=== PATIENT | female | born 1960 | race Caucasian/White ===

== ENCOUNTER 2017-02-10 02:28 | Emergency (ER) | payer MEDICARE, MEDICAID ==
[~2017-02-10] VITALS: Ht 167.6 cm; Wt 98.0 kg
[~2017-02-10 02:28] MED LIST: ALBU18HF2 INH; ASPI81TA52 PO; DIPH25CA83 PO; FLUT1AER INH; LEVO750T21 PO; NITR0.4T SL; NORCO10T PO; PANT20TA3 PO; PRED10TA23 PO; SPIIN IH
[2017-02-10] MEDS ORDERED: methylPREDNISolone sod succ 125mg/2ml vial IM ONE (02:55)
[2017-02-10] MEDS ORDERED: ipratropium/albuterol 3ml nebule NEB ONE (02:55)
[2017-02-10] MEDS ORDERED: fluconazole 100mg tablet PO ONE (02:55)
[2017-02-10] MEDS ORDERED: FLUC150T PO (03:53)
[2017-02-10 04:14] VITALS: BP 144/73
[2017-02-13] MEDS ORDERED: CLIN150C2 PO (11:20)
== END 2017-02-10 04:18 | disposition home or self-care (01) ==
LOC: ER 02:29
DX: J44.1 Chronic obstructive pulmonary disease with (acute) exacerbation (principal); B37.3 Candidiasis of vulva and vagina; E78.00 Pure hypercholesterolemia, unspecified; I10 Essential (primary) hypertension; K21.9 Gastro-esophageal reflux disease without esophagitis; G89.29 Other chronic pain; Z88.0 Allergy status to penicillin; Z88.5 Allergy status to narcotic agent; Z88.2 Allergy status to sulfonamides; Z99.81 Dependence on supplemental oxygen; Z79.82 Long term (current) use of aspirin
CPT/HCPCS: 71020; 93005; 94640; 94760; 96372; 99284; J2930

== ENCOUNTER 2017-03-07 12:28 | Emergency (ER) | payer MEDICARE, MEDICAID ==
[~2017-03-07] VITALS: Ht 167.6 cm; Wt 100.0 kg
[~2017-03-07 12:28] MED LIST changes: -LEVO750T21 PO
[2017-03-07] MEDS ORDERED: LISI-604 PO (12:48)
[2017-03-07] MEDS ORDERED: PRED5TAB PO (12:48)
[2017-03-07] MEDS ORDERED: methylPREDNISolone sod succ 125mg/2ml vial IV ONE (14:25)
[2017-03-07 14:36] VITALS: BP 117/60
== END 2017-03-07 14:37 | disposition home or self-care (01) ==
LOC: ER 12:29
DX: J44.1 Chronic obstructive pulmonary disease with (acute) exacerbation (principal); E78.00 Pure hypercholesterolemia, unspecified; I10 Essential (primary) hypertension; K21.9 Gastro-esophageal reflux disease without esophagitis; G89.29 Other chronic pain; M81.0 Age-related osteoporosis without current pathological fracture; Z88.2 Allergy status to sulfonamides; Z88.0 Allergy status to penicillin; Z88.5 Allergy status to narcotic agent; Z99.81 Dependence on supplemental oxygen; Z79.01 Long term (current) use of anticoagulants; Z56.0 Unemployment, unspecified; Z98.890 Other specified postprocedural states
CPT/HCPCS: 71045; 93005; 99284

== ENCOUNTER 2017-03-20 07:29 | Emergency (ER) | payer MEDICARE, MEDICAID ==
[~2017-03-20] VITALS: Ht 167.6 cm; Wt 98.5 kg
[~2017-03-20 07:29] MED LIST changes: -DIPH25CA83 PO; +LISI-604 PO; -PRED10TA23 PO; +PRED5TAB PO
[2017-03-20] MEDS ORDERED: dexamethasone 4mg tablet PO ONE (07:35)
[2017-03-20] MEDS ORDERED: ipratropium/albuterol 3ml nebule NEB ONE (07:35)
[2017-03-20 08:26] LABS: BASOPHILS % (AUTO) 0.2 % (0-1); EOSINOPHILS # (AUTO) 0.4 X10'3 (0-0.9); EOSINOPHILS % (AUTO) 2.6 % (0-6); HEMATOCRIT 36.9 % (35.0-45.0); HEMOGLOBIN 12.7 g/dl (12.0-16.0); LYMPHOCYTES # (AUTO) 2.3 X10'3 (1.1-4.8); LYMPHOCYTES % (AUTO) 13.7 % (21-51); MEAN CORPUSCULAR HEMOGLOBIN 27.4 PG (27.0-31.0); MEAN CORPUSCULAR HGB CONC 34.3 % (33.0-36.5); MEAN CORPUSCULAR VOLUME 79.8 FL (78-98); MEAN PLATELET VOLUME 8.7 FL (7.4-10.4); MONOCYTES # (AUTO) 0.8 X10'3 (0-0.9); MONOCYTES % (AUTO) 4.8 % (2-12); NEUTROPHILS # (AUTO) 13.2 X10'3 (1.8-7.7); NEUTROPHILS % (AUTO) 78.7 % (42-75); PLATELET COUNT 206 X10'3 (140-440); RED BLOOD COUNT 4.63 X10'6 (4.20-5.60); RED CELL DISTRIBUTION WIDTH 16.4 % (11.5-14.5); WHITE BLOOD COUNT 16.8 X10'3 (4.5-11.0)
[2017-03-20] MEDS ORDERED: DOXY100C43 PO (08:28)
[2017-03-20 08:54] LABS: ALANINE AMINOTRANSFERASE 21 U/L (12-78); ALBUMIN 3.5 G/DL (3.4-5.0); ALBUMIN/GLOBULIN RATIO 1.1 (1.1-1.5); ALKALINE PHOSPHATASE 77 IU/L (46-116); ANION GAP 10 (8-16); ASPARTATE AMINO TRANSFERASE 13 U/L (10-37); BILIRUBIN,TOTAL 0.4 MG/DL (0.1-1.0); BLOOD UREA NITROGEN 13 MG/DL (7-18); BUN/CREATININE RATIO 16.3 (6.6-38.0); CALCIUM 8.6 MG/DL (8.5-10.1); CHLORIDE 107 MMOL/L (99-107); GLUCOSE 116 MG/DL (70-104); POTASSIUM 3.7 MMOL/L (3.5-5.1); SODIUM 141 MMOL/L (135-145); TOTAL CARBON DIOXIDE 23.6 MMOL/L (24-32); TOTAL PROTEIN 6.7 G/DL (6.4-8.2); eGFR 73 ML/MIN
[2017-03-20 09:32] VITALS: BP 108/55
[2017-03-20] MEDS ORDERED: AZIT-57 PO (14:40)
== END 2017-03-20 09:33 | disposition home or self-care (01) ==
LOC: ER 07:30
DX: J44.1 Chronic obstructive pulmonary disease with (acute) exacerbation (principal); J20.9 Acute bronchitis, unspecified; K21.9 Gastro-esophageal reflux disease without esophagitis; I10 Essential (primary) hypertension; E78.00 Pure hypercholesterolemia, unspecified; M81.0 Age-related osteoporosis without current pathological fracture; Z87.891 Personal history of nicotine dependence; Z88.2 Allergy status to sulfonamides; Z88.6 Allergy status to analgesic agent; Z91.041 Radiographic dye allergy status; Z79.82 Long term (current) use of aspirin
CPT/HCPCS: 36415; 71045; 80053; 83880; 84484; 85025; 93005; 94640; 94760; 99285

== ENCOUNTER 2017-03-23 10:31 | Emergency (ER) | payer MEDICARE, MEDICAID ==
[~2017-03-23] VITALS: Ht 167.6 cm; Wt 95.6 kg
[~2017-03-23 10:31] MED LIST changes: +AZIT-57 PO
[2017-03-23] MEDS ORDERED: ipratropium/albuterol 3ml nebule NEB ONE (10:55)
[2017-03-23] MEDS ORDERED: IPRA3AMP9 IH (11:25)
[2017-03-23 12:05] VITALS: BP 130/89
== END 2017-03-23 12:08 | disposition home or self-care (01) ==
LOC: ER 10:31
DX: J44.1 Chronic obstructive pulmonary disease with (acute) exacerbation (principal); I49.9 Cardiac arrhythmia, unspecified; E78.00 Pure hypercholesterolemia, unspecified; I10 Essential (primary) hypertension; K21.9 Gastro-esophageal reflux disease without esophagitis; G89.29 Other chronic pain; M81.0 Age-related osteoporosis without current pathological fracture; Z56.0 Unemployment, unspecified; Z88.1 Allergy status to other antibiotic agents; Z88.0 Allergy status to penicillin; Z88.2 Allergy status to sulfonamides; Z88.5 Allergy status to narcotic agent; Z88.8 Allergy status to other drugs, medicaments and biological substances; Z79.899 Other long term (current) drug therapy; Z79.82 Long term (current) use of aspirin
CPT/HCPCS: 71046; 93005; 94640; 94760; 99284

== ENCOUNTER 2017-04-21 00:21 | Emergency (ER) | payer MEDICARE, MEDICAID ==
[~2017-04-21] VITALS: Ht 5451.6 cm; Wt 98.0 kg
[~2017-04-21 00:21] MED LIST changes: -AZIT-57 PO; +IPRA3AMP9 IH
[2017-04-21 01:15] LABS: BASOPHILS # (AUTO) 0.1 X10'3 (0-0.2); BASOPHILS % (AUTO) 0.7 % (0-1); EOSINOPHILS % (AUTO) 0.5 % (0-6); HEMATOCRIT 36.3 % (35.0-45.0); HEMOGLOBIN 12.3 g/dl (12.0-16.0); LYMPHOCYTES # (AUTO) 2.8 X10'3 (1.1-4.8); LYMPHOCYTES % (AUTO) 31.2 % (21-51); MEAN CORPUSCULAR HEMOGLOBIN 27.4 PG (27.0-31.0); MEAN CORPUSCULAR HGB CONC 33.8 % (33.0-36.5); MEAN CORPUSCULAR VOLUME 80.8 FL (78-98); MEAN PLATELET VOLUME 9.1 FL (7.4-10.4); MONOCYTES # (AUTO) 0.9 X10'3 (0-0.9); MONOCYTES % (AUTO) 10.2 % (2-12); NEUTROPHILS # (AUTO) 5.3 X10'3 (1.8-7.7); NEUTROPHILS % (AUTO) 57.4 % (42-75); PLATELET COUNT 254 X10'3 (140-440); RED BLOOD COUNT 4.49 X10'6 (4.20-5.60); RED CELL DISTRIBUTION WIDTH 15.2 % (11.5-14.5); WHITE BLOOD COUNT 9.1 X10'3 (4.5-11.0)
[2017-04-21 01:28] LABS: PARTIAL THROMBOPLASTIN TIME 27 SECONDS (22-32); PROTHROMBIN TIME 10.2 SECONDS (9.0-12.0)
[2017-04-21 01:39] LABS: ALANINE AMINOTRANSFERASE 25 U/L (12-78); ALBUMIN 3.5 G/DL (3.4-5.0); ALKALINE PHOSPHATASE 84 IU/L (46-116); ANION GAP 13 (8-16); ASPARTATE AMINO TRANSFERASE 15 U/L (10-37); BILIRUBIN,TOTAL 0.2 MG/DL (0.1-1.0); BLOOD UREA NITROGEN 17 MG/DL (7-18); BUN/CREATININE RATIO 22.7 (6.6-38.0); CALCIUM 8.6 MG/DL (8.5-10.1); CHLORIDE 107 MMOL/L (99-107); CREATININE 0.75 MG/DL (0.40-0.90); GLUCOSE 106 MG/DL (70-104); POTASSIUM 3.8 MMOL/L (3.5-5.1); SODIUM 144 MMOL/L (135-145); TOTAL CARBON DIOXIDE 24.5 MMOL/L (24-32); TOTAL PROTEIN 7.1 G/DL (6.4-8.2); eGFR 79 ML/MIN
[2017-04-21] MEDS ORDERED: levoFLOXACIN 250mg tablet PO ONE (02:00)
[2017-04-21] MEDS ORDERED: LEVO500T2 PO (02:01)
[2017-04-21 02:26] VITALS: BP 143/84
== END 2017-04-21 02:28 | disposition home or self-care (01) ==
LOC: ER 00:22
DX: J44.1 Chronic obstructive pulmonary disease with (acute) exacerbation (principal); E78.00 Pure hypercholesterolemia, unspecified; I10 Essential (primary) hypertension; K21.9 Gastro-esophageal reflux disease without esophagitis; G89.29 Other chronic pain; M81.0 Age-related osteoporosis without current pathological fracture; Z87.01 Personal history of pneumonia (recurrent); Z98.890 Other specified postprocedural states; Z88.0 Allergy status to penicillin; Z88.5 Allergy status to narcotic agent; Z88.2 Allergy status to sulfonamides; Z88.3 Allergy status to other anti-infective agents; Z79.82 Long term (current) use of aspirin; Z79.899 Other long term (current) drug therapy; Z99.81 Dependence on supplemental oxygen
CPT/HCPCS: 36415; 71045; 80053; 83880; 84484; 85025; 85610; 85730; 87040; 93005; 99285

== ENCOUNTER 2017-05-15 22:27 | Emergency (ER) | payer MEDICARE, MEDICAID ==
[~2017-05-15] VITALS: Ht 167.6 cm; Wt 98.3 kg
[2017-05-15 22:29] VITALS: BP 154/66
[2017-05-15] MEDS ORDERED: predniSONE 20 mg tablet PO ONE (22:50)
[2017-05-15 23:45] LABS: BASOPHILS # (AUTO) 0.1 X10'3 (0-0.2); BASOPHILS % (AUTO) 0.7 % (0-1); EOSINOPHILS # (AUTO) 0.4 X10'3 (0-0.9); EOSINOPHILS % (AUTO) 3.3 % (0-6); HEMATOCRIT 38.6 % (35.0-45.0); HEMOGLOBIN 13.1 g/dl (12.0-16.0); LYMPHOCYTES # (AUTO) 4.9 X10'3 (1.1-4.8); LYMPHOCYTES % (AUTO) 39.1 % (21-51); MEAN CORPUSCULAR HGB CONC 33.8 % (33.0-36.5); MEAN CORPUSCULAR VOLUME 79.9 FL (78-98); MEAN PLATELET VOLUME 8.6 FL (7.4-10.4); MONOCYTES # (AUTO) 0.8 X10'3 (0-0.9); MONOCYTES % (AUTO) 6.4 % (2-12); NEUTROPHILS # (AUTO) 6.4 X10'3 (1.8-7.7); NEUTROPHILS % (AUTO) 50.5 % (42-75); PLATELET COUNT 254 X10'3 (140-440); RED BLOOD COUNT 4.83 X10'6 (4.20-5.60); RED CELL DISTRIBUTION WIDTH 16.1 % (11.5-14.5); WHITE BLOOD COUNT 12.6 X10'3 (4.5-11.0)
[2017-05-15] MEDS ORDERED: PRED20TA PO (23:55)
[2017-05-16 00:09] LABS: ALANINE AMINOTRANSFERASE 26 U/L (12-78); ALBUMIN 3.6 G/DL (3.4-5.0); ALBUMIN/GLOBULIN RATIO 1.1 (1.1-1.5); ALKALINE PHOSPHATASE 81 IU/L (46-116); ANION GAP 10 (8-16); ASPARTATE AMINO TRANSFERASE 13 U/L (10-37); BILIRUBIN,TOTAL 0.2 MG/DL (0.1-1.0); BLOOD UREA NITROGEN 12 MG/DL (7-18); BUN/CREATININE RATIO 12.9 (6.6-38.0); CALCIUM 8.6 MG/DL (8.5-10.1); CHLORIDE 105 MMOL/L (99-107); CREATININE 0.93 MG/DL (0.40-0.90); GLUCOSE 107 MG/DL (70-104); POTASSIUM 3.5 MMOL/L (3.5-5.1); SODIUM 140 MMOL/L (135-145); TOTAL CARBON DIOXIDE 24.7 MMOL/L (24-32); TOTAL PROTEIN 6.8 G/DL (6.4-8.2); eGFR 62 ML/MIN
== END 2017-05-16 00:36 | disposition home or self-care (01) ==
LOC: ER 22:28
DX: J44.9 Chronic obstructive pulmonary disease, unspecified (principal); E78.00 Pure hypercholesterolemia, unspecified; I10 Essential (primary) hypertension; K21.9 Gastro-esophageal reflux disease without esophagitis; G89.29 Other chronic pain; Z56.0 Unemployment, unspecified; Z88.0 Allergy status to penicillin; Z79.899 Other long term (current) drug therapy
CPT/HCPCS: 36415; 71046; 80053; 83735; 83880; 84484; 85025; 93005; 99285; J7512

== ENCOUNTER 2017-05-23 04:13 | Emergency (ER) | payer MEDICARE, MEDICAID ==
[~2017-05-23] VITALS: Ht 167.6 cm; Wt 88.3 kg
[2017-05-23 04:27] VITALS: BP 134/68
[2017-05-23] MEDS ORDERED: methylPREDNISolone sod succ 125mg/2ml vial IV ONE (04:35)
[2017-05-23] MEDS ORDERED: ipratropium/albuterol 3ml nebule NEB ONE (04:35)
[2017-05-23] MEDS ORDERED: AZIT250T PO (04:47)
[2017-05-23] MEDS ORDERED: PRED10TA23 PO (04:47)
[2017-05-23] MEDS ORDERED: LEVO750T21 PO (05:05)
== END 2017-05-23 05:12 | disposition home or self-care (01) ==
LOC: ER 04:13
DX: J44.1 Chronic obstructive pulmonary disease with (acute) exacerbation (principal); E78.00 Pure hypercholesterolemia, unspecified; I10 Essential (primary) hypertension; G89.29 Other chronic pain; K21.9 Gastro-esophageal reflux disease without esophagitis; Z88.2 Allergy status to sulfonamides; Z88.0 Allergy status to penicillin; Z88.5 Allergy status to narcotic agent; Z79.82 Long term (current) use of aspirin; Z79.899 Other long term (current) drug therapy
CPT/HCPCS: 71045; 94640; 94760; 96374; 99284; J2930

== ENCOUNTER 2017-07-26 08:45 | Emergency (ER) | payer MEDICARE, MEDICAID ==
[~2017-07-26] VITALS: Ht 165.1 cm; Wt 97.7 kg
[~2017-07-26 08:45] MED LIST changes: +PSEU120T55 PO
[2017-07-26 09:22] LABS: BASOPHILS # (AUTO) 0.1 X10'3 (0-0.2); BASOPHILS % (AUTO) 0.8 % (0-1); EOSINOPHILS % (AUTO) 0.2 % (0-6); HEMATOCRIT 36.4 % (35.0-45.0); HEMOGLOBIN 12.4 g/dl (12.0-16.0); LYMPHOCYTES # (AUTO) 3.5 X10'3 (1.1-4.8); LYMPHOCYTES % (AUTO) 28.4 % (21-51); MEAN CORPUSCULAR HEMOGLOBIN 27.1 PG (27.0-31.0); MEAN CORPUSCULAR HGB CONC 34.2 % (33.0-36.5); MEAN CORPUSCULAR VOLUME 79.4 FL (78-98); MEAN PLATELET VOLUME 8.7 FL (7.4-10.4); MONOCYTES # (AUTO) 0.7 X10'3 (0-0.9); MONOCYTES % (AUTO) 5.5 % (2-12); NEUTROPHILS # (AUTO) 8.1 X10'3 (1.8-7.7); NEUTROPHILS % (AUTO) 65.1 % (42-75); PLATELET COUNT 262 X10'3 (140-440); RED BLOOD COUNT 4.59 X10'6 (4.20-5.60); RED CELL DISTRIBUTION WIDTH 15.9 % (11.5-14.5); WHITE BLOOD COUNT 12.4 X10'3 (4.5-11.0)
[2017-07-26] MEDS ORDERED: methylPREDNISolone sod succ 125mg/2ml vial IM ONE (09:25)
[2017-07-26] MEDS ORDERED: ipratropium/albuterol 3ml nebule NEB ONE (09:25)
[2017-07-26 09:36] LABS: ALANINE AMINOTRANSFERASE 19 U/L (12-78); ALBUMIN 3.5 G/DL (3.4-5.0); ALBUMIN/GLOBULIN RATIO 1.1 (1.1-1.5); ALKALINE PHOSPHATASE 87 IU/L (46-116); ANION GAP 9 (8-16); ASPARTATE AMINO TRANSFERASE 12 U/L (10-37); BILIRUBIN,TOTAL 0.2 MG/DL (0.1-1.0); BLOOD UREA NITROGEN 14 MG/DL (7-18); BUN/CREATININE RATIO 16.9 (6.6-38.0); CALCIUM 8.2 MG/DL (8.5-10.1); CHLORIDE 106 MMOL/L (99-107); CREATININE 0.83 MG/DL (0.40-0.90); GLUCOSE 94 MG/DL (70-104); POTASSIUM 3.3 MMOL/L (3.5-5.1); SODIUM 142 MMOL/L (135-145); TOTAL CARBON DIOXIDE 26.6 MMOL/L (24-32); TOTAL PROTEIN 6.8 G/DL (6.4-8.2); eGFR 70 ML/MIN
[2017-07-26] MEDS ORDERED: pantoprazole 40 MG vial IV ONE (10:20)
[2017-07-26 10:30] VITALS: BP 142/69
[2017-07-30] MEDS ORDERED: PRED50TA PO (21:25)
[2017-07-30] MEDS ORDERED: LEVO750T21 PO (21:25)
== END 2017-07-26 10:32 | disposition home or self-care (01) ==
LOC: ER 08:45
DX: J44.1 Chronic obstructive pulmonary disease with (acute) exacerbation (principal); E78.00 Pure hypercholesterolemia, unspecified; I10 Essential (primary) hypertension; K21.9 Gastro-esophageal reflux disease without esophagitis; G89.29 Other chronic pain; M81.0 Age-related osteoporosis without current pathological fracture; Z56.0 Unemployment, unspecified; Z88.0 Allergy status to penicillin; Z88.5 Allergy status to narcotic agent; Z88.2 Allergy status to sulfonamides; Z79.82 Long term (current) use of aspirin; Z79.899 Other long term (current) drug therapy
CPT/HCPCS: 36415; 71046; 80053; 85025; 93005; 94640; 94760; 96372; 99285; J2930

== ENCOUNTER 2017-09-03 06:27 | Emergency (ER) | payer MEDICARE, MEDICAID ==
[~2017-09-03] VITALS: Ht 167.6 cm; Wt 99.5 kg
[~2017-09-03 06:27] MED LIST changes: +PRED50TA PO
[2017-09-03 06:58] LABS: BASOPHILS % (AUTO) 0.3 % (0-1); EOSINOPHILS # (AUTO) 0.1 X10'3 (0-0.9); EOSINOPHILS % (AUTO) 0.4 % (0-6); HEMATOCRIT 37.4 % (35.0-45.0); HEMOGLOBIN 12.7 g/dl (12.0-16.0); LYMPHOCYTES # (AUTO) 4.9 X10'3 (1.1-4.8); LYMPHOCYTES % (AUTO) 34.8 % (21-51); MEAN CORPUSCULAR HEMOGLOBIN 27.7 PG (27.0-31.0); MEAN CORPUSCULAR VOLUME 81.4 FL (78-98); MEAN PLATELET VOLUME 8.6 FL (7.4-10.4); MONOCYTES # (AUTO) 0.7 X10'3 (0-0.9); MONOCYTES % (AUTO) 5.2 % (2-12); NEUTROPHILS # (AUTO) 8.4 X10'3 (1.8-7.7); NEUTROPHILS % (AUTO) 59.3 % (42-75); PLATELET COUNT 267 X10'3 (140-440); RED BLOOD COUNT 4.59 X10'6 (4.20-5.60); RED CELL DISTRIBUTION WIDTH 16.2 % (11.5-14.5); WHITE BLOOD COUNT 14.2 X10'3 (4.5-11.0)
[2017-09-03 07:16] LABS: ALANINE AMINOTRANSFERASE 20 U/L (12-78); ALBUMIN 3.4 G/DL (3.4-5.0); ALKALINE PHOSPHATASE 82 IU/L (46-116); ANION GAP 6 (8-16); ASPARTATE AMINO TRANSFERASE 6 U/L (10-37); BILIRUBIN,TOTAL 0.2 MG/DL (0.1-1.0); BLOOD UREA NITROGEN 22 MG/DL (7-18); BUN/CREATININE RATIO 22.7 (6.6-38.0); CALCIUM 8.4 MG/DL (8.5-10.1); CHLORIDE 105 MMOL/L (99-107); CREATININE 0.97 MG/DL (0.40-0.90); GLUCOSE 94 MG/DL (70-104); POTASSIUM 3.4 MMOL/L (3.5-5.1); SODIUM 138 MMOL/L (135-145); TOTAL CARBON DIOXIDE 27.4 MMOL/L (24-32); TOTAL PROTEIN 6.7 G/DL (6.4-8.2); eGFR 59 ML/MIN
[2017-09-03 07:25] LABS: LIPASE 73 U/L (73-393)
[2017-09-03 09:34] VITALS: BP 127/70
== END 2017-09-03 09:40 | disposition home or self-care (01) ==
LOC: ER 06:28
DX: J44.9 Chronic obstructive pulmonary disease, unspecified (principal); R07.89 Other chest pain; E78.00 Pure hypercholesterolemia, unspecified; I10 Essential (primary) hypertension; K21.9 Gastro-esophageal reflux disease without esophagitis; M81.0 Age-related osteoporosis without current pathological fracture; F31.9 Bipolar disorder, unspecified; Z56.0 Unemployment, unspecified; Z88.0 Allergy status to penicillin; Z88.5 Allergy status to narcotic agent; Z88.2 Allergy status to sulfonamides; Z79.82 Long term (current) use of aspirin; Z79.899 Other long term (current) drug therapy
CPT/HCPCS: 36415; 71046; 80053; 83605; 83690; 84484; 85025; 87040; 93005; 99285

== ENCOUNTER 2017-09-08 19:04 | Emergency (ER) | payer MEDICARE, MEDICAID ==
[~2017-09-08] VITALS: Ht 167.6 cm; Wt 97.8 kg
[2017-09-08 19:47] LABS: CLARITY,URINE CLEAR (Clear); COLOR,URINE YELLOW (Yellow); GLUCOSE, URINE NEGATIVE (Neg); KETONES,URINE NEGATIVE (Neg); LEUKOCYTE ESTERASE ,URINE NEGATIVE (Neg); NITRITES, URINE NEGATIVE (Neg); OCCULT BLOOD,URINE TRACE-INTACT (Neg); PROTEIN,URINE NEGATIVE (Neg); UROBILINOGEN,URINE 0.2 E.U/dL (0.2-1.0)
[2017-09-08] MEDS ORDERED: albuterol 2.5 MG/3 ML nebule CONTNEB PRN (19:50)
[2017-09-08 19:57] LABS: UA COLLECTION TYPE CLN CATCH MIDSTREAM
[2017-09-08 20:00] LABS: BACTERIA,URINE NONE SEEN /HPF (Neg); SQUAMOUS EPITHELIAL CELL,UR FEW /LPF (FEW); WBC,URINE NONE SEEN /HPF (0-4)
[2017-09-08 20:01] LABS: BASOPHILS # (AUTO) 0.1 X10'3 (0-0.2); BASOPHILS % (AUTO) 0.5 % (0-1); EOSINOPHILS # (AUTO) 0.3 X10'3 (0-0.9); EOSINOPHILS % (AUTO) 1.9 % (0-6); HEMATOCRIT 38.9 % (35.0-45.0); HEMOGLOBIN 13.3 g/dl (12.0-16.0); LYMPHOCYTES % (AUTO) 17.4 % (21-51); MEAN CORPUSCULAR HEMOGLOBIN 27.7 PG (27.0-31.0); MEAN CORPUSCULAR HGB CONC 34.1 % (33.0-36.5); MEAN CORPUSCULAR VOLUME 81.2 FL (78-98); MEAN PLATELET VOLUME 8.6 FL (7.4-10.4); MONOCYTES # (AUTO) 1.2 X10'3 (0-0.9); MONOCYTES % (AUTO) 6.9 % (2-12); NEUTROPHILS # (AUTO) 12.5 X10'3 (1.8-7.7); NEUTROPHILS % (AUTO) 73.3 % (42-75); PLATELET COUNT 250 X10'3 (140-440); RED CELL DISTRIBUTION WIDTH 16.1 % (11.5-14.5)
[2017-09-08 20:10] LABS: PARTIAL THROMBOPLASTIN TIME 29 SECONDS (22-32); PROTHROMBIN TIME 10.6 SECONDS (9.0-12.0)
[2017-09-08 20:15] LABS: ALANINE AMINOTRANSFERASE 18 U/L (12-78); ALBUMIN 3.4 G/DL (3.4-5.0); ALBUMIN/GLOBULIN RATIO 0.9 (1.1-1.5); ALKALINE PHOSPHATASE 91 IU/L (46-116); ANION GAP 11 (8-16); ASPARTATE AMINO TRANSFERASE 11 U/L (10-37); BILIRUBIN,TOTAL 0.4 MG/DL (0.1-1.0); BLOOD UREA NITROGEN 18 MG/DL (7-18); BUN/CREATININE RATIO 17.8 (6.6-38.0); CALCIUM 8.6 MG/DL (8.5-10.1); CHLORIDE 102 MMOL/L (99-107); CREATININE 1.01 MG/DL (0.40-0.90); GLUCOSE 119 MG/DL (70-104); POTASSIUM 3.4 MMOL/L (3.5-5.1); SODIUM 136 MMOL/L (135-145); TOTAL CARBON DIOXIDE 23.4 MMOL/L (24-32); TOTAL PROTEIN 7.2 G/DL (6.4-8.2); eGFR 56 ML/MIN
[2017-09-08] MEDS ORDERED: methylPREDNISolone sod succ 125mg/2ml vial IV ONE (20:50)
[2017-09-08] MEDS ORDERED: PRED50TA PO (21:09)
[2017-09-08] MEDS ORDERED: AZIT-57 PO (21:09)
[2017-09-08 21:43] VITALS: BP 120/75
== END 2017-09-08 21:45 | disposition home or self-care (01) ==
LOC: ER 19:04
DX: J44.1 Chronic obstructive pulmonary disease with (acute) exacerbation (principal); I49.9 Cardiac arrhythmia, unspecified; I10 Essential (primary) hypertension; K21.9 Gastro-esophageal reflux disease without esophagitis; G89.29 Other chronic pain; M81.0 Age-related osteoporosis without current pathological fracture; Z98.890 Other specified postprocedural states; Z56.0 Unemployment, unspecified; Z88.0 Allergy status to penicillin; Z88.5 Allergy status to narcotic agent; Z88.2 Allergy status to sulfonamides; Z88.1 Allergy status to other antibiotic agents; Z79.82 Long term (current) use of aspirin; Z79.899 Other long term (current) drug therapy
CPT/HCPCS: 36415; 71045; 80053; 81001; 84145; 84484; 85025; 85610; 85730; 87040; 93005; 94644; 94760; 96374; 99285; J2930

== ENCOUNTER 2017-10-15 21:44 | Emergency (ER) | payer MEDICARE, MEDICAID ==
[~2017-10-15] VITALS: Ht 167.6 cm; Wt 97.7 kg
[2017-10-15] MEDS ORDERED: nitroGLYCERIN 1gm ointment UD TP ONE (22:55)
[2017-10-15 22:59] LABS: BASOPHILS # (AUTO) 0.2 X10'3 (0-0.2); BASOPHILS % (AUTO) 1.2 % (0-1); EOSINOPHILS # (AUTO) 0.2 X10'3 (0-0.9); EOSINOPHILS % (AUTO) 1.4 % (0-6); HEMOGLOBIN 12.5 g/dl (12.0-16.0); LYMPHOCYTES # (AUTO) 4.6 X10'3 (1.1-4.8); LYMPHOCYTES % (AUTO) 31.6 % (21-51); MEAN CORPUSCULAR HEMOGLOBIN 27.3 PG (27.0-31.0); MEAN CORPUSCULAR HGB CONC 33.8 % (33.0-36.5); MEAN CORPUSCULAR VOLUME 80.8 FL (78-98); MONOCYTES # (AUTO) 0.8 X10'3 (0-0.9); MONOCYTES % (AUTO) 5.2 % (2-12); NEUTROPHILS # (AUTO) 8.8 X10'3 (1.8-7.7); NEUTROPHILS % (AUTO) 60.6 % (42-75); PLATELET COUNT 277 X10'3 (140-440); RED BLOOD COUNT 4.57 X10'6 (4.20-5.60); RED CELL DISTRIBUTION WIDTH 16.6 % (11.5-14.5); WHITE BLOOD COUNT 14.5 X10'3 (4.5-11.0)
[2017-10-15 23:12] LABS: PARTIAL THROMBOPLASTIN TIME 25 SECONDS (22-32); PROTHROMBIN TIME 10.6 SECONDS (9.0-12.0)
[2017-10-15] MEDS: aspirin 81mg tab.chew PO ONE ×2 (23:14→23:21)
[2017-10-15 23:16] LABS: ALANINE AMINOTRANSFERASE 17 U/L (12-78); ALBUMIN 3.3 G/DL (3.4-5.0); ALBUMIN/GLOBULIN RATIO 1.1 (1.1-1.5); ALKALINE PHOSPHATASE 77 IU/L (46-116); ANION GAP 11 (8-16); ASPARTATE AMINO TRANSFERASE 11 U/L (10-37); BILIRUBIN,TOTAL 0.2 MG/DL (0.1-1.0); BLOOD UREA NITROGEN 19 MG/DL (7-18); BUN/CREATININE RATIO 21.3 (6.6-38.0); CHLORIDE 104 MMOL/L (99-107); CREATININE 0.89 MG/DL (0.40-0.90); GLUCOSE 87 MG/DL (70-104); POTASSIUM 3.6 MMOL/L (3.5-5.1); SODIUM 140 MMOL/L (135-145); TOTAL CARBON DIOXIDE 25.4 MMOL/L (24-32); TOTAL PROTEIN 6.3 G/DL (6.4-8.2); eGFR 65 ML/MIN
[2017-10-15 23:24] LABS: MAGNESIUM 1.8 MG/DL (1.5-2.4)
[2017-10-15 23:57] LABS: URINE AMPHETAMINE SCREEN NEGATIVE (Neg); URINE BARBITUATE SCREEN NEGATIVE (Neg); URINE BENZODIAZEPINES SCREEN NEGATIVE (Neg); URINE CANNABINOID SCREEN NEGATIVE (Neg); URINE COCAINE SCREEN NEGATIVE (Neg); URINE METHADONE SCREEN NEGATIVE (Neg); URINE OPIATE SCREEN NEGATIVE (Neg); URINE PHENCYCLIDINE SCREEN NEGATIVE (Neg)
[2017-10-16 02:22] VITALS: BP 120/43
== END 2017-10-16 02:25 | disposition home or self-care (01) ==
LOC: ER 21:45
DX: R07.89 Other chest pain (principal); E78.00 Pure hypercholesterolemia, unspecified; I10 Essential (primary) hypertension; J44.9 Chronic obstructive pulmonary disease, unspecified; K21.9 Gastro-esophageal reflux disease without esophagitis; G89.29 Other chronic pain; M81.0 Age-related osteoporosis without current pathological fracture; Z98.890 Other specified postprocedural states; Z56.0 Unemployment, unspecified; Z88.0 Allergy status to penicillin; Z88.5 Allergy status to narcotic agent; Z88.2 Allergy status to sulfonamides; Z88.3 Allergy status to other anti-infective agents; Z79.82 Long term (current) use of aspirin; Z79.899 Other long term (current) drug therapy; Z87.891 Personal history of nicotine dependence; Z99.81 Dependence on supplemental oxygen
CPT/HCPCS: 36415; 71045; 80053; 80305; 83735; 83880; 84484; 85025; 85610; 85730; 93005; 99285

== ENCOUNTER 2017-11-13 07:36 | Emergency (ER) | payer MEDICARE, MEDICAID ==
[~2017-11-13] VITALS: Ht 578.2 cm; Wt 88.0 kg
[2017-11-13 07:39] VITALS: BP 137/95
[2017-11-13] MEDS ORDERED: ipratropium/albuterol 3ml nebule NEB ONE (07:50)
[2017-11-13] MEDS ORDERED: dexamethasone 4mg tablet PO ONE (07:50)
[2017-11-13] MEDS ORDERED: predniSONE 20 mg tablet PO ONE (08:10)
[2017-11-13 08:57] LABS: BASOPHILS # (AUTO) 0.1 X10'3 (0-0.2); BASOPHILS % (AUTO) 0.6 % (0-1); EOSINOPHILS # (AUTO) 0.5 X10'3 (0-0.9); EOSINOPHILS % (AUTO) 4.5 % (0-6); HEMATOCRIT 40.2 % (35.0-45.0); HEMOGLOBIN 13.5 g/dl (12.0-16.0); LYMPHOCYTES % (AUTO) 19.9 % (21-51); MEAN CORPUSCULAR HEMOGLOBIN 27.5 PG (27.0-31.0); MEAN CORPUSCULAR HGB CONC 33.6 % (33.0-36.5); MEAN CORPUSCULAR VOLUME 81.8 FL (78-98); MEAN PLATELET VOLUME 8.7 FL (7.4-10.4); MONOCYTES # (AUTO) 0.6 X10'3 (0-0.9); MONOCYTES % (AUTO) 5.7 % (2-12); NEUTROPHILS # (AUTO) 6.9 X10'3 (1.8-7.7); NEUTROPHILS % (AUTO) 69.3 % (42-75); PLATELET COUNT 286 X10'3 (140-440); RED BLOOD COUNT 4.91 X10'6 (4.20-5.60); RED CELL DISTRIBUTION WIDTH 15.5 % (11.5-14.5)
[2017-11-13] MEDS ORDERED: AZIT250T PO (09:10)
[2017-11-13] MEDS ORDERED: LEVO750T21 PO (09:10)
[2017-11-13] MEDS ORDERED: PRED5TAB PO (09:10)
[2017-11-13 09:22] LABS: ALANINE AMINOTRANSFERASE 23 U/L (12-78); ALBUMIN 3.6 G/DL (3.4-5.0); ALKALINE PHOSPHATASE 89 IU/L (46-116); ANION GAP 13 (8-16); ASPARTATE AMINO TRANSFERASE 15 U/L (10-37); BILIRUBIN,TOTAL 0.3 MG/DL (0.1-1.0); BLOOD UREA NITROGEN 11 MG/DL (7-18); BUN/CREATININE RATIO 13.8 (6.6-38.0); CALCIUM 8.6 MG/DL (8.5-10.1); CHLORIDE 103 MMOL/L (99-107); GLUCOSE 117 MG/DL (70-104); SODIUM 141 MMOL/L (135-145); TOTAL CARBON DIOXIDE 25.3 MMOL/L (24-32); TOTAL PROTEIN 7.1 G/DL (6.4-8.2); eGFR 73 ML/MIN
== END 2017-11-13 09:37 | disposition home or self-care (01) ==
LOC: ER 07:37
DX: J20.9 Acute bronchitis, unspecified (principal); J44.1 Chronic obstructive pulmonary disease with (acute) exacerbation; I10 Essential (primary) hypertension; E78.00 Pure hypercholesterolemia, unspecified; K21.9 Gastro-esophageal reflux disease without esophagitis; G89.29 Other chronic pain; M54.9 Dorsalgia, unspecified; M81.0 Age-related osteoporosis without current pathological fracture; Z56.0 Unemployment, unspecified; Z88.0 Allergy status to penicillin; Z88.2 Allergy status to sulfonamides; Z88.8 Allergy status to other drugs, medicaments and biological substances; Z88.6 Allergy status to analgesic agent; Z88.1 Allergy status to other antibiotic agents; Z91.041 Radiographic dye allergy status; Z79.82 Long term (current) use of aspirin
CPT/HCPCS: 36415; 71046; 80053; 83605; 83880; 84484; 85025; 87040; 93005; 94640; 94760; 99285; J7512; J8540

== ENCOUNTER 2017-11-20 17:25 | Emergency (ER) | payer MEDICARE, MEDICAID ==
[~2017-11-20] VITALS: Ht 167.6 cm; Wt 101.0 kg
[2017-11-20 18:28] VITALS: BP 154/62
[2017-11-20 18:49] LABS: ALANINE AMINOTRANSFERASE 17 U/L (12-78); ALBUMIN 3.5 G/DL (3.4-5.0); ALBUMIN/GLOBULIN RATIO 1.1 (1.1-1.5); ALKALINE PHOSPHATASE 91 IU/L (46-116); ANION GAP 11 (8-16); ASPARTATE AMINO TRANSFERASE 9 U/L (10-37); BILIRUBIN,TOTAL 0.2 MG/DL (0.1-1.0); BLOOD UREA NITROGEN 14 MG/DL (7-18); BUN/CREATININE RATIO 16.9 (6.6-38.0); CALCIUM 9.3 MG/DL (8.5-10.1); CHLORIDE 105 MMOL/L (99-107); CREATININE 0.83 MG/DL (0.40-0.90); GLUCOSE 165 MG/DL (70-104); SODIUM 143 MMOL/L (135-145); TOTAL CARBON DIOXIDE 27.2 MMOL/L (24-32); TOTAL PROTEIN 6.6 G/DL (6.4-8.2); eGFR 70 ML/MIN
[2017-11-20 18:54] LABS: POTASSIUM 3.9 MMOL/L (3.5-5.1)
[2017-11-20 19:03] LABS: BASOPHILS # (AUTO) 0.1 X10'3 (0-0.2); BASOPHILS % (AUTO) 0.5 % (0-1); EOSINOPHILS % (AUTO) 0.2 % (0-6); HEMATOCRIT 36.8 % (35.0-45.0); HEMOGLOBIN 12.6 g/dl (12.0-16.0); LYMPHOCYTES # (AUTO) 2.9 X10'3 (1.1-4.8); LYMPHOCYTES % (AUTO) 20.3 % (21-51); MEAN CORPUSCULAR HEMOGLOBIN 28.3 PG (27.0-31.0); MEAN CORPUSCULAR HGB CONC 34.3 % (33.0-36.5); MEAN CORPUSCULAR VOLUME 82.4 FL (78-98); MEAN PLATELET VOLUME 8.7 FL (7.4-10.4); MONOCYTES # (AUTO) 0.7 X10'3 (0-0.9); MONOCYTES % (AUTO) 5.1 % (2-12); NEUTROPHILS # (AUTO) 10.6 X10'3 (1.8-7.7); NEUTROPHILS % (AUTO) 73.9 % (42-75); PLATELET COUNT 338 X10'3 (140-440); RED BLOOD COUNT 4.47 X10'6 (4.20-5.60); RED CELL DISTRIBUTION WIDTH 14.9 % (11.5-14.5); WHITE BLOOD COUNT 14.3 X10'3 (4.5-11.0)
[2017-11-20 19:08] LABS: D-DIMER < 0.19 MG/L FEU (0-0.50)
== END 2017-11-20 22:13 | disposition left against medical advice (07) ==
LOC: ER 17:26
DX: R06.02 Shortness of breath (principal); Z53.21 Procedure and treatment not carried out due to patient leaving prior to being seen by health care provider
CPT/HCPCS: 36415; 71046; 80053; 83605; 84484; 85025; 85379; 87040; 93005

== ENCOUNTER 2017-12-10 15:07 | Emergency (ER) | payer MEDICARE, MEDICAID ==
[~2017-12-10] VITALS: Ht 167.6 cm; Wt 102.2 kg
[2017-12-10 15:16] VITALS: BP 150/70
[2017-12-11] MEDS ORDERED: [UNRECOGNIZED DRUG - CODE] (08:09)
== END 2017-12-10 19:03 | disposition left against medical advice (07) ==
LOC: ER 15:08
DX: R06.02 Shortness of breath (principal); Z53.21 Procedure and treatment not carried out due to patient leaving prior to being seen by health care provider
CPT/HCPCS: 93005

== ENCOUNTER 2017-12-11 07:30 | Emergency (ER) | payer MEDICARE, MEDICAID ==
[~2017-12-11] VITALS: Ht 167.6 cm; Wt 102.2 kg
[2017-12-11 07:41] VITALS: BP 141/73
[2017-12-11] MEDS ORDERED: [UNRECOGNIZED DRUG - CODE] (08:09)
== END 2017-12-11 08:20 | disposition home or self-care (01) ==
LOC: ER 07:31
DX: M54.2 Cervicalgia (principal); E78.00 Pure hypercholesterolemia, unspecified; I10 Essential (primary) hypertension; J44.9 Chronic obstructive pulmonary disease, unspecified; K21.9 Gastro-esophageal reflux disease without esophagitis; G89.29 Other chronic pain; Z56.0 Unemployment, unspecified; Z98.890 Other specified postprocedural states; Z88.0 Allergy status to penicillin; Z88.5 Allergy status to narcotic agent; Z88.2 Allergy status to sulfonamides; Z88.1 Allergy status to other antibiotic agents; Z91.041 Radiographic dye allergy status; Z79.82 Long term (current) use of aspirin; Z79.899 Other long term (current) drug therapy
CPT/HCPCS: 99283

== ENCOUNTER 2017-12-17 07:40 | Emergency (ER) | payer MEDICARE, MEDICAID ==
[~2017-12-17] VITALS: Ht 167.6 cm; Wt 102.0 kg
[~2017-12-17 07:40] MED LIST changes: +[UNRECOGNIZED DRUG - CODE]
[2017-12-17] MEDS ORDERED: NYST1000 PO (08:48)
[2017-12-17 09:21] VITALS: BP 145/82
== END 2017-12-17 09:47 | disposition home or self-care (01) ==
LOC: ER 07:40
DX: K11.7 Disturbances of salivary secretion (principal); J39.2 Other diseases of pharynx; E78.00 Pure hypercholesterolemia, unspecified; I10 Essential (primary) hypertension; J44.9 Chronic obstructive pulmonary disease, unspecified; K21.9 Gastro-esophageal reflux disease without esophagitis; G89.29 Other chronic pain; M81.0 Age-related osteoporosis without current pathological fracture; Z56.0 Unemployment, unspecified; Z87.01 Personal history of pneumonia (recurrent); Z98.890 Other specified postprocedural states; Z88.0 Allergy status to penicillin; Z88.5 Allergy status to narcotic agent; Z88.2 Allergy status to sulfonamides; Z88.3 Allergy status to other anti-infective agents; Z79.82 Long term (current) use of aspirin; Z79.899 Other long term (current) drug therapy
CPT/HCPCS: 87077; 87081; 87880; 93005; 99285

== ENCOUNTER 2018-01-27 07:49 | Emergency (ER) | payer MEDICARE, MEDICAID ==
[~2018-01-27] VITALS: Ht 167.6 cm; Wt 90.0 kg
[~2018-01-27 07:49] MED LIST changes: +PRED10TA PO
[2018-01-27 07:54] VITALS: BP 155/82
== END 2018-01-27 08:55 | disposition home or self-care (01) ==
LOC: ER 07:49
DX: S40.862A Insect bite (nonvenomous) of left upper arm, initial encounter (principal); E78.00 Pure hypercholesterolemia, unspecified; I10 Essential (primary) hypertension; K21.9 Gastro-esophageal reflux disease without esophagitis; J44.9 Chronic obstructive pulmonary disease, unspecified; F31.9 Bipolar disorder, unspecified; G89.29 Other chronic pain; M81.0 Age-related osteoporosis without current pathological fracture; Z88.0 Allergy status to penicillin; Z88.5 Allergy status to narcotic agent; Z88.2 Allergy status to sulfonamides; Z79.82 Long term (current) use of aspirin; Z56.0 Unemployment, unspecified; W57.XXXA Bitten or stung by nonvenomous insect and other nonvenomous arthropods, initial encounter; Y93.89 Activity, other specified; Y92.89 Other specified places as the place of occurrence of the external cause; Y99.8 Other external cause status
CPT/HCPCS: 99281

== ENCOUNTER 2018-01-29 07:30 | Emergency (ER) | payer MEDICARE, MEDICAID ==
[~2018-01-29] VITALS: Ht 167.6 cm; Wt 102.3 kg
[2018-01-29 08:20] LABS: PARTIAL THROMBOPLASTIN TIME 29 SECONDS (22-32); PROTHROMBIN TIME 10.4 SECONDS (9.0-12.0)
[2018-01-29 08:22] LABS: BASOPHILS % (AUTO) 0.5 % (0-1); EOSINOPHILS # (AUTO) 0.3 X10'3 (0-0.9); EOSINOPHILS % (AUTO) 3.1 % (0-6); HEMATOCRIT 40.7 % (35.0-45.0); HEMOGLOBIN 13.5 g/dl (12.0-16.0); LYMPHOCYTES # (AUTO) 2.4 X10'3 (1.1-4.8); MEAN CORPUSCULAR HEMOGLOBIN 26.8 PG (27.0-31.0); MEAN CORPUSCULAR HGB CONC 33.1 % (33.0-36.5); MEAN CORPUSCULAR VOLUME 80.8 FL (78-98); MEAN PLATELET VOLUME 9.5 FL (7.4-10.4); MONOCYTES # (AUTO) 0.7 X10'3 (0-0.9); MONOCYTES % (AUTO) 6.4 % (2-12); NEUTROPHILS # (AUTO) 7.3 X10'3 (1.8-7.7); PLATELET COUNT 241 X10'3 (140-440); RED BLOOD COUNT 5.04 X10'6 (4.20-5.60); RED CELL DISTRIBUTION WIDTH 15.4 % (11.5-14.5); WHITE BLOOD COUNT 10.7 X10'3 (4.5-11.0)
[2018-01-29 08:23] LABS: ALANINE AMINOTRANSFERASE 25 U/L (12-78); ALBUMIN 3.7 G/DL (3.4-5.0); ALBUMIN/GLOBULIN RATIO 1.1 (1.1-1.5); ALKALINE PHOSPHATASE 86 IU/L (46-116); ANION GAP 13 (8-16); ASPARTATE AMINO TRANSFERASE 18 U/L (10-37); BILIRUBIN,TOTAL 0.2 MG/DL (0.1-1.0); BLOOD UREA NITROGEN 11 MG/DL (7-18); BUN/CREATININE RATIO 13.8 (6.6-38.0); CALCIUM 8.9 MG/DL (8.5-10.1); CHLORIDE 103 MMOL/L (99-107); GLUCOSE 115 MG/DL (70-104); POTASSIUM 3.9 MMOL/L (3.5-5.1); SODIUM 139 MMOL/L (135-145); TOTAL CARBON DIOXIDE 23.5 MMOL/L (24-32); TOTAL PROTEIN 7.1 G/DL (6.4-8.2); eGFR 73 ML/MIN
[2018-01-29] MEDS ORDERED: AZIT250T PO (08:35)
[2018-01-29 08:39] VITALS: BP 161/90
== END 2018-01-29 08:42 | disposition home or self-care (01) ==
LOC: ER 07:31
DX: J44.1 Chronic obstructive pulmonary disease with (acute) exacerbation (principal); E78.00 Pure hypercholesterolemia, unspecified; I10 Essential (primary) hypertension; K21.9 Gastro-esophageal reflux disease without esophagitis; G89.29 Other chronic pain; M81.0 Age-related osteoporosis without current pathological fracture; Z88.0 Allergy status to penicillin; Z88.5 Allergy status to narcotic agent; Z88.2 Allergy status to sulfonamides; Z88.1 Allergy status to other antibiotic agents; Z88.8 Allergy status to other drugs, medicaments and biological substances; Z79.82 Long term (current) use of aspirin; Z79.2 Long term (current) use of antibiotics; Z79.899 Other long term (current) drug therapy; Z56.0 Unemployment, unspecified
CPT/HCPCS: 36415; 71045; 80053; 84484; 85025; 85610; 85730; 93005; 99284

== ENCOUNTER 2018-02-08 11:53 | Emergency (ER) | payer MEDICARE, MEDICAID ==
[~2018-02-08] VITALS: Ht 167.6 cm; Wt 103.0 kg
[~2018-02-08 11:53] MED LIST changes: +AZIT250T PO
[2018-02-08] MEDS ORDERED: methylPREDNISolone sod succ 125mg/2ml vial IV ONE (12:10)
[2018-02-08] MEDS ORDERED: ipratropium/albuterol 3ml nebule NEB ONE (12:10)
[2018-02-08 12:22] LABS: BASOPHILS # (AUTO) 0.1 X10'3 (0-0.2); BASOPHILS % (AUTO) 0.7 % (0-1); EOSINOPHILS # (AUTO) 0.4 X10'3 (0-0.9); EOSINOPHILS % (AUTO) 3.5 % (0-6); HEMATOCRIT 40.2 % (35.0-45.0); HEMOGLOBIN 13.3 g/dl (12.0-16.0); LYMPHOCYTES # (AUTO) 2.8 X10'3 (1.1-4.8); LYMPHOCYTES % (AUTO) 24.8 % (21-51); MEAN CORPUSCULAR HEMOGLOBIN 26.8 PG (27.0-31.0); MEAN CORPUSCULAR HGB CONC 33.2 % (33.0-36.5); MEAN CORPUSCULAR VOLUME 80.8 FL (78-98); MEAN PLATELET VOLUME 8.4 FL (7.4-10.4); MONOCYTES # (AUTO) 0.6 X10'3 (0-0.9); MONOCYTES % (AUTO) 5.5 % (2-12); NEUTROPHILS # (AUTO) 7.3 X10'3 (1.8-7.7); NEUTROPHILS % (AUTO) 65.5 % (42-75); PLATELET COUNT 339 X10'3 (140-440); RED BLOOD COUNT 4.97 X10'6 (4.20-5.60); RED CELL DISTRIBUTION WIDTH 15.5 % (11.5-14.5); WHITE BLOOD COUNT 11.2 X10'3 (4.5-11.0)
[2018-02-08 12:41] LABS: ALANINE AMINOTRANSFERASE 17 U/L (12-78); ALBUMIN 3.4 G/DL (3.4-5.0); ALKALINE PHOSPHATASE 85 IU/L (46-116); ANION GAP 12 (8-16); ASPARTATE AMINO TRANSFERASE 13 U/L (10-37); BILIRUBIN,TOTAL 0.3 MG/DL (0.1-1.0); BLOOD UREA NITROGEN 12 MG/DL (7-18); CALCIUM 8.2 MG/DL (8.5-10.1); CHLORIDE 104 MMOL/L (99-107); POTASSIUM 3.7 MMOL/L (3.5-5.1); SODIUM 141 MMOL/L (135-145); TOTAL CARBON DIOXIDE 24.7 MMOL/L (24-32); TOTAL PROTEIN 6.7 G/DL (6.4-8.2); eGFR 73 ML/MIN
[2018-02-08 12:48] LABS: GLUCOSE 115 MG/DL (70-104)
[2018-02-08 12:50] LABS: D-DIMER 0.25 MG/L FEU (0-0.50); PARTIAL THROMBOPLASTIN TIME 26 SECONDS (22-32); PROTHROMBIN TIME 10.6 SECONDS (9.0-12.0)
[2018-02-08] MEDS ORDERED: potassium Cl 20 mEq SR tablet PO STA (12:53)
[2018-02-08 13:10] VITALS: BP 141/81
== END 2018-02-08 13:14 | disposition home or self-care (01) ==
LOC: ER 11:53
DX: R07.89 Other chest pain (principal); R06.02 Shortness of breath; R00.2 Palpitations; E78.00 Pure hypercholesterolemia, unspecified; I10 Essential (primary) hypertension; J44.9 Chronic obstructive pulmonary disease, unspecified; K21.9 Gastro-esophageal reflux disease without esophagitis; G89.29 Other chronic pain; F17.210 Nicotine dependence, cigarettes, uncomplicated; Z98.890 Other specified postprocedural states; Z56.0 Unemployment, unspecified; Z88.0 Allergy status to penicillin; Z88.5 Allergy status to narcotic agent; Z88.2 Allergy status to sulfonamides; Z91.041 Radiographic dye allergy status; Z88.1 Allergy status to other antibiotic agents; Z79.82 Long term (current) use of aspirin; Z79.2 Long term (current) use of antibiotics; Z79.899 Other long term (current) drug therapy
CPT/HCPCS: 36415; 71045; 80053; 83880; 84145; 84484; 85025; 85379; 85610; 85730; 93005; 94640; 94760; 96374; 99284; J2930

== ENCOUNTER 2018-02-19 10:56 | Emergency (ER) | payer MEDICARE, MEDICAID ==
[~2018-02-19] VITALS: Ht 167.6 cm; Wt 100.0 kg
[2018-02-19 10:57] VITALS: BP 121/70
[2018-02-19] MEDS ORDERED: aspirin 81mg tab.chew PO ONE (11:15)
[2018-02-19 11:35] LABS: BASOPHILS % (AUTO) 0.4 % (0-1); EOSINOPHILS # (AUTO) 0.3 X10'3 (0-0.9); EOSINOPHILS % (AUTO) 3.1 % (0-6); HEMATOCRIT 38.9 % (35.0-45.0); LYMPHOCYTES # (AUTO) 2.3 X10'3 (1.1-4.8); LYMPHOCYTES % (AUTO) 22.7 % (21-51); MEAN CORPUSCULAR HEMOGLOBIN 27.1 PG (27.0-31.0); MEAN CORPUSCULAR HGB CONC 33.4 % (33.0-36.5); MEAN CORPUSCULAR VOLUME 81.1 FL (78-98); MEAN PLATELET VOLUME 8.5 FL (7.4-10.4); MONOCYTES # (AUTO) 0.6 X10'3 (0-0.9); MONOCYTES % (AUTO) 6.1 % (2-12); NEUTROPHILS # (AUTO) 6.8 X10'3 (1.8-7.7); NEUTROPHILS % (AUTO) 67.7 % (42-75); PLATELET COUNT 292 X10'3 (140-440); RED BLOOD COUNT 4.79 X10'6 (4.20-5.60); RED CELL DISTRIBUTION WIDTH 14.5 % (11.5-14.5)
[2018-02-19 12:01] LABS: ALANINE AMINOTRANSFERASE 24 U/L (12-78); ALBUMIN 3.3 G/DL (3.4-5.0); ALBUMIN/GLOBULIN RATIO 1.1 (1.1-1.5); ALKALINE PHOSPHATASE 85 IU/L (46-116); ANION GAP 12 (8-16); ASPARTATE AMINO TRANSFERASE 21 U/L (10-37); BILIRUBIN,TOTAL 0.2 MG/DL (0.1-1.0); BLOOD UREA NITROGEN 11 MG/DL (7-18); BUN/CREATININE RATIO 14.7 (6.6-38.0); CALCIUM 8.4 MG/DL (8.5-10.1); CHLORIDE 105 MMOL/L (99-107); CREATININE 0.75 MG/DL (0.40-0.90); GLUCOSE 115 MG/DL (70-104); SODIUM 140 MMOL/L (135-145); TOTAL CARBON DIOXIDE 22.8 MMOL/L (24-32); TOTAL PROTEIN 6.4 G/DL (6.4-8.2); eGFR 79 ML/MIN
[2018-02-19 12:09] LABS: MAGNESIUM 1.8 MG/DL (1.5-2.4)
[2018-02-19 12:11] LABS: POTASSIUM 4.1 MMOL/L (3.5-5.1)
== END 2018-02-19 12:44 | disposition home or self-care (01) ==
LOC: ER 10:56
DX: R07.89 Other chest pain (principal); R05 Cough; J44.9 Chronic obstructive pulmonary disease, unspecified; E11.9 Type 2 diabetes mellitus without complications; E78.00 Pure hypercholesterolemia, unspecified; I10 Essential (primary) hypertension; K21.9 Gastro-esophageal reflux disease without esophagitis; G89.29 Other chronic pain; F31.9 Bipolar disorder, unspecified; Z87.891 Personal history of nicotine dependence; Z56.0 Unemployment, unspecified; Z88.0 Allergy status to penicillin; Z88.1 Allergy status to other antibiotic agents; Z88.5 Allergy status to narcotic agent; Z91.041 Radiographic dye allergy status
CPT/HCPCS: 36415; 71045; 80053; 83735; 83880; 84484; 85025; 93005; 99284

== ENCOUNTER 2018-04-05 18:12 | Inpatient (IN) | payer MEDICARE, MEDICAID ==
[~2018-04-05] VITALS: Ht 167.6 cm; Wt 102.3 kg
[2018-04-05 18:51] LABS: HEMOGLOBIN 13.4 g/dl (12.0-16.0); WHITE BLOOD COUNT 15.4 X10'3 (4.5-11.0)
[2018-04-05 18:59] LABS: ALANINE AMINOTRANSFERASE 24 U/L (12-78); ALBUMIN 3.5 G/DL (3.4-5.0); ALKALINE PHOSPHATASE 91 IU/L (46-116); ANION GAP 11 (8-16); ASPARTATE AMINO TRANSFERASE 16 U/L (10-37); BILIRUBIN,TOTAL 0.2 MG/DL (0.1-1.0); BLOOD UREA NITROGEN 14 MG/DL (7-18); BUN/CREATININE RATIO 15.4 (6.6-38.0); CALCIUM 8.9 MG/DL (8.5-10.1); CHLORIDE 103 MMOL/L (99-107); CREATININE 0.91 MG/DL (0.40-0.90); GLUCOSE 116 MG/DL (70-104); SODIUM 140 MMOL/L (135-145); TOTAL PROTEIN 6.9 G/DL (6.4-8.2); eGFR 63 ML/MIN
[2018-04-05 19:00] LABS: EOSINOPHILS # (AUTO) 0.3 X10'3 (0-0.9)
[2018-04-05 19:04] LABS: PARTIAL THROMBOPLASTIN TIME 30 SECONDS (22-32); PROTHROMBIN TIME 10.2 SECONDS (9.0-12.0)
[2018-04-05 19:10] LABS: BASOPHILS # (AUTO) 0.1 X10'3 (0-0.2); BASOPHILS % (AUTO) 0.6 % (0-1); EOSINOPHILS % (AUTO) 1.8 % (0-6); HEMATOCRIT 39.9 % (35.0-45.0); LYMPHOCYTES # (AUTO) 2.5 X10'3 (1.1-4.8); MEAN CORPUSCULAR HEMOGLOBIN 27.6 PG (27.0-31.0); MEAN CORPUSCULAR HGB CONC 33.6 g/dL (33.0-36.5); MEAN CORPUSCULAR VOLUME 81.9 FL (78-98); MEAN PLATELET VOLUME 8.7 FL (7.4-10.4); MONOCYTES # (AUTO) 0.6 X10'3 (0-0.9); MONOCYTES % (AUTO) 3.9 % (2-12); NEUTROPHILS # (AUTO) 11.9 X10'3 (1.8-7.7); NEUTROPHILS % (AUTO) 77.7 % (42-75); PLATELET COUNT 298 X10'3 (140-440); RED BLOOD COUNT 4.87 X10'6 (4.20-5.60); RED CELL DISTRIBUTION WIDTH 14.6 % (11.5-14.5)
[2018-04-05] MEDS ORDERED: levoFLOXACIN-Levaquin 750MG/D5 150 ML IV STA (19:29)
[2018-04-05] MEDS ORDERED: aspirin 81mg tab.chew PO ONE (19:30)
--- NOTE | 2018-04-05 19:45 | NUR ---
ORDERED BC/LA R/T LEVAQUIN ORDERED
[2018-04-05] MEDS ORDERED: magnesium hydroxide 30ml (MOM) UD suspension PO PRN (20:50)
[2018-04-05] MEDS ORDERED: mag hydrox/Alum hydrox/simeth 30ml oral suspension PO PRN (20:50)
[2018-04-05] MEDS ORDERED: ondansetron/PF 4mg/2ml inj IV PRN (20:50)
[2018-04-05] MEDS ORDERED: nitroGLYCERIN 0.4mg SUBLingual tab SL PRN (20:55)
[2018-04-05] MEDS: BUDESONIDE 0.25 MG/2 ML AMPUL.NEB IH SCH (21:00)
[2018-04-05] MEDS ORDERED: ipratropium 0.5 MG/2.5ML nebule IH SCH (21:00)
[2018-04-05] MEDS: acetaminophen 325mg tablet PO PRN (22:56)
--- NOTE | 2018-04-05 22:57 | NUR ---
Pt has a low grade temp, gave her tylenol and a liter of ice water.
[2018-04-05 23:38] LABS: PLATELET ESTIMATE NORMAL; TOTAL CELLS COUNTED 100
--- NOTE | 2018-04-05 23:59 | NUR ---
Patient in room ED 1. I have received report from murray montes and had the opportunity to ask questions and assume patient care.
[2018-04-06] VITALS (7 sets, daily range): BP systolic 114–149; BP diastolic 44–69
--- NOTE | 2018-04-06 00:45 | NUR ---
dr hays called about patinet not having prn breathing tx. ordered prn as taken at home. rt paged twice Addendum: 04/06/18 at 0107 by Yayo Maravilla RN patient reporting feeling very sob and that she needs a breathing tx. Addendum: 04/06/18 at 0203 by Yayo Maravilla RN rt responded to both pages
[2018-04-06] MEDS ORDERED: albuterol 2.5 MG/3 ML nebule NEB PRN (00:50)
--- NOTE | 2018-04-06 01:00 | NUR ---
PATIENT ARRIVED TO FLOOR AND AMBULATED TO BED; PATIENT PLACED ON TELE, ORIENTED TO ROOM, NURSE, CALL LIGHT AND EVENTS FOR THE NIGHT. PATIENT COOPERATIVE AND APPROPRIATE. IV SL BUT FLUSHES WELL. V/S AND ASSESSMENT COMPLETED. CURRENTLY ON 2L NC. MRSA SWAB COLLECTED AND 2 RN SKIN CHECK DONE. NO SKIN ISSUES OBSERVED. WILL CONTINUE TO MONITOR
--- NOTE | 2018-04-06 02:47 | NUR ---
could not dart patient at this time, patient asleep before admit questions could be asked.
[2018-04-06] MEDS: ipratropium/albuterol 3ml nebule NEB SCH ×4 (02:52→20:17)
--- NOTE | 2018-04-06 06:08 | NUR ---
Problems reprioritized. Patient report given, questions answered & plan of care reviewed with BERNARD HARDING. PATIENT AWAKE IN NO DISTRESS.
--- NOTE | 2018-04-06 06:28 | NUR ---
Patient in room PCU 3010. I have received report from Juli HARDING and had the opportunity to ask questions and assume patient care.
[2018-04-06 06:44] LABS: ALANINE AMINOTRANSFERASE 20 U/L (12-78); ALBUMIN 3.2 G/DL (3.4-5.0); ALBUMIN/GLOBULIN RATIO 0.9 (1.1-1.5); ALKALINE PHOSPHATASE 79 IU/L (46-116); ANION GAP 10 (8-16); ASPARTATE AMINO TRANSFERASE 16 U/L (10-37); BILIRUBIN,TOTAL 0.5 MG/DL (0.1-1.0); BLOOD UREA NITROGEN 11 MG/DL (7-18); BUN/CREATININE RATIO 12.8 (6.6-38.0); CALCIUM 8.5 MG/DL (8.5-10.1); CHLORIDE 103 MMOL/L (99-107); CREATININE 0.86 MG/DL (0.40-0.90); GLUCOSE 111 MG/DL (70-104); POTASSIUM 3.7 MMOL/L (3.5-5.1); SODIUM 139 MMOL/L (135-145); TOTAL PROTEIN 6.6 G/DL (6.4-8.2); TROPONIN I < 0.04 NG/ML (0.0-0.05); eGFR 67 ML/MIN
[2018-04-06] MEDS ORDERED: albuterol 2.5 MG/3 ML nebule NEB SCH ×2 (07:00→08:00)
[2018-04-06] MEDS: pantoprazole 40mg Tablet.DR PO SCH (07:09)
[2018-04-06] MEDS: acetaminophen 325mg tablet PO PRN ×2 (07:09→18:36)
[2018-04-06] MEDS: aspirin 81mg tablet.DR PO SCH (07:09)
[2018-04-06] MEDS: heparin, porcine 5000 units/ml vial SQ SCH ×2 (07:10→19:06)
[2018-04-06 07:15] LABS: BASOPHILS % (AUTO) 0.3 % (0-1); EOSINOPHILS # (AUTO) 0.2 X10'3 (0-0.9); EOSINOPHILS % (AUTO) 1.3 % (0-6); HEMATOCRIT 38.5 % (35.0-45.0); HEMOGLOBIN 12.8 g/dl (12.0-16.0); LYMPHOCYTES # (AUTO) 2.1 X10'3 (1.1-4.8); LYMPHOCYTES % (AUTO) 15.7 % (21-51); MEAN CORPUSCULAR HEMOGLOBIN 27.5 PG (27.0-31.0); MEAN CORPUSCULAR HGB CONC 33.3 g/dL (33.0-36.5); MEAN CORPUSCULAR VOLUME 82.7 FL (78-98); MEAN PLATELET VOLUME 8.9 FL (7.4-10.4); MONOCYTES # (AUTO) 0.7 X10'3 (0-0.9); MONOCYTES % (AUTO) 5.5 % (2-12); NEUTROPHILS # (AUTO) 10.3 X10'3 (1.8-7.7); NEUTROPHILS % (AUTO) 77.2 % (42-75); PLATELET COUNT 274 X10'3 (140-440); RED BLOOD COUNT 4.66 X10'6 (4.20-5.60); RED CELL DISTRIBUTION WIDTH 14.9 % (11.5-14.5); WHITE BLOOD COUNT 13.3 X10'3 (4.5-11.0)
[2018-04-06] MEDS ORDERED: non-formulary drug (Fluticasone/Vilanterol (Breo Ellipta 100-25 Mcg INH) 1 PUFF) INH SCH (08:00)
[2018-04-06] MEDS ORDERED: non-formulary drug (Tiotropium Bromide (SPIRIVA inhaler) 1 CAP) IH SCH (08:00)
[2018-04-06] MEDS: HYDROcodone/acetaminophen 10/325mg tab PO PRN (08:19)
[2018-04-06] MEDS ORDERED: predniSONE 20 mg tablet PO ONE (09:05)
[2018-04-06] MEDS: levoFLOXACIN-Levaquin 500mg/D5 100 ML IV SCH (09:35)
[2018-04-06] MEDS: BUDESONIDE 0.25 MG/2 ML AMPUL.NEB IH SCH ×2 (10:55→20:17)
--- NOTE | 2018-04-06 16:37 | NUR ---
PAGER ID: [phone] MESSAGE: RM [id number]. Can Pt have caffeine, is complaining of caffeine headache. Thanks Na [phone].
--- NOTE | 2018-04-06 18:13 | NUR ---
Problems reprioritized. Patient report given, questions answered & plan of care reviewed with Juli HARDING. Patient stable at transfer of care.
--- NOTE | 2018-04-06 18:14 | NUR ---
Patient in room PCU 3010. I have received report from elham montes and had the opportunity to ask questions and assume patient care. patient ambulating unit at this time in no distress.
[2018-04-06] MEDS: lactobacillus rhamnosus 10,000 MMU CELLS/CAPSULE PO SCH (19:06)
[2018-04-07] MEDS: ipratropium/albuterol 3ml nebule NEB SCH ×3 (02:12→12:02)
[2018-04-07 03:00] VITALS: BP 116/66
[2018-04-07] MEDS: acetaminophen 325mg tablet PO PRN (05:17)
--- NOTE | 2018-04-07 06:13 | NUR ---
Problems reprioritized. Patient report given, questions answered & plan of care reviewed with BERNARD HARDING. PATIENT AWKAE ABOUT TO GO FOR A WALK AROUND UNIT. IN NO DISTRESS
--- NOTE | 2018-04-07 06:15 | NUR ---
Patient in room PCU 3010. I have received report from Juli HARDING and had the opportunity to ask questions and assume patient care.
[2018-04-07 07:00] VITALS: BP 124/66
[2018-04-07 07:04] LABS: ALANINE AMINOTRANSFERASE 20 U/L (12-78); ALBUMIN 3.2 G/DL (3.4-5.0); ALBUMIN/GLOBULIN RATIO 0.9 (1.1-1.5); ALKALINE PHOSPHATASE 78 IU/L (46-116); ANION GAP 12 (8-16); ASPARTATE AMINO TRANSFERASE 11 U/L (10-37); BILIRUBIN,TOTAL 0.3 MG/DL (0.1-1.0); BLOOD UREA NITROGEN 20 MG/DL (7-18); BUN/CREATININE RATIO 21.3 (6.6-38.0); CALCIUM 8.8 MG/DL (8.5-10.1); CHLORIDE 104 MMOL/L (99-107); CREATININE 0.94 MG/DL (0.40-0.90); GLUCOSE 109 MG/DL (70-104); POTASSIUM 3.8 MMOL/L (3.5-5.1); SODIUM 140 MMOL/L (135-145); TOTAL CARBON DIOXIDE 24.1 MMOL/L (24-32); TOTAL PROTEIN 6.8 G/DL (6.4-8.2); eGFR 61 ML/MIN
[2018-04-07] MEDS: BUDESONIDE 0.25 MG/2 ML AMPUL.NEB IH SCH (07:25)
[2018-04-07 07:43] LABS: BASOPHILS # (AUTO) 0.1 X10'3 (0-0.2); BASOPHILS % (AUTO) 0.8 % (0-1); EOSINOPHILS # (AUTO) 0.1 X10'3 (0-0.9); EOSINOPHILS % (AUTO) 1.6 % (0-6); HEMATOCRIT 38.1 % (35.0-45.0); HEMOGLOBIN 12.7 g/dl (12.0-16.0); LYMPHOCYTES # (AUTO) 2.6 X10'3 (1.1-4.8); LYMPHOCYTES % (AUTO) 29.2 % (21-51); MEAN CORPUSCULAR HGB CONC 33.4 g/dL (33.0-36.5); MEAN CORPUSCULAR VOLUME 80.9 FL (78-98); MEAN PLATELET VOLUME 8.8 FL (7.4-10.4); MONOCYTES # (AUTO) 0.7 X10'3 (0-0.9); MONOCYTES % (AUTO) 7.5 % (2-12); NEUTROPHILS # (AUTO) 5.5 X10'3 (1.8-7.7); NEUTROPHILS % (AUTO) 60.9 % (42-75); PLATELET COUNT 279 X10'3 (140-440); RED BLOOD COUNT 4.71 X10'6 (4.20-5.60); RED CELL DISTRIBUTION WIDTH 15.2 % (11.5-14.5); WHITE BLOOD COUNT 9.1 X10'3 (4.5-11.0)
[2018-04-07] MEDS ORDERED: predniSONE 20 mg tablet PO SCH (08:30)
[2018-04-07] MEDS: lactobacillus rhamnosus 10,000 MMU CELLS/CAPSULE PO SCH (08:36)
[2018-04-07] MEDS: pantoprazole 40mg Tablet.DR PO SCH (08:36)
[2018-04-07] MEDS: aspirin 81mg tablet.DR PO SCH (08:37)
[2018-04-07] MEDS: HYDROcodone/acetaminophen 10/325mg tab PO PRN (08:37)
[2018-04-07] MEDS: levoFLOXACIN-Levaquin 500mg/D5 100 ML IV SCH (08:38)
[2018-04-07] MEDS: heparin, porcine 5000 units/ml vial SQ SCH (08:38)
[2018-04-07 11:00] VITALS: BP 135/66
[2018-04-07] MEDS ORDERED: LEVO500T89 PO (11:46)
[2018-04-07] MEDS ORDERED: PRED20TA PO (11:46)
--- NOTE | 2018-04-07 13:43 | NUR ---
Pt discharged from unit at 1340. Discharge packet and patient education was reviewed before signing and being sent with patient. All patient belongings were sent with Patient. PIV and telemetry were discontinued. Pt was wheeled down by clinical nursing instructor and left via private vehicle.
== END 2018-04-07 13:40 | disposition home or self-care (01) | DRG 189 ==
LOC: ER 18:12 → ED HOLD 20:47 → PCU 3S 04-06 00:15
PROVIDERS: ADMIT Internal Medicine; ATTEND Family Medicine
DX: J96.20 Acute and chronic respiratory failure, unspecified whether with hypoxia or hypercapnia (principal); J44.1 Chronic obstructive pulmonary disease with (acute) exacerbation; J20.9 Acute bronchitis, unspecified; K21.9 Gastro-esophageal reflux disease without esophagitis; M81.0 Age-related osteoporosis without current pathological fracture; E11.9 Type 2 diabetes mellitus without complications; E78.00 Pure hypercholesterolemia, unspecified; I10 Essential (primary) hypertension; G89.29 Other chronic pain; Z82.49 Family history of ischemic heart disease and other diseases of the circulatory system; Z87.891 Personal history of nicotine dependence; Z99.81 Dependence on supplemental oxygen; Z88.0 Allergy status to penicillin; Z88.8 Allergy status to other drugs, medicaments and biological substances; Z91.041 Radiographic dye allergy status
CPT/HCPCS: 36415; 71045; 80053; 83605; 83880; 84484; 85025; 85610; 85730; 87040; 87070; 87502; 87503; 93005; 93306; 94640; 94760; 96365; 99285; G0378; J1644; J1956; J7512

== ENCOUNTER 2018-05-08 07:44 | Emergency (ER) | payer MEDICARE, MEDICAID ==
[~2018-05-08] VITALS: Ht 167.6 cm; Wt 95.5 kg
[~2018-05-08 07:44] MED LIST changes: -AZIT250T PO; -IPRA3AMP9 IH; -LISI-604 PO; -PRED10TA PO; +PRED20TA PO; -PRED50TA PO; -PRED5TAB PO; -PSEU120T55 PO; -[UNRECOGNIZED DRUG - CODE]
[2018-05-08] MEDS ORDERED: methylPREDNISolone sod succ 125mg/2ml vial IM ONE (08:15)
[2018-05-08] MEDS ORDERED: ipratropium/albuterol 3ml nebule NEB ONE (08:15)
[2018-05-08 08:31] LABS: BASOPHILS # (AUTO) 0.1 X10'3 (0-0.2); BASOPHILS % (AUTO) 0.8 % (0-1); EOSINOPHILS # (AUTO) 0.7 X10'3 (0-0.9); EOSINOPHILS % (AUTO) 8.6 % (0-6); HEMATOCRIT 39.2 % (35.0-45.0); HEMOGLOBIN 12.6 g/dl (12.0-16.0); LYMPHOCYTES # (AUTO) 2.5 X10'3 (1.1-4.8); LYMPHOCYTES % (AUTO) 30.9 % (21-51); MEAN CORPUSCULAR HEMOGLOBIN 25.8 PG (27.0-31.0); MEAN CORPUSCULAR HGB CONC 32.1 g/dL (33.0-36.5); MEAN CORPUSCULAR VOLUME 80.6 FL (78-98); MONOCYTES # (AUTO) 0.7 X10'3 (0-0.9); MONOCYTES % (AUTO) 9.2 % (2-12); NEUTROPHILS % (AUTO) 50.5 % (42-75); PLATELET COUNT 318 X10'3 (140-440); RED BLOOD COUNT 4.86 X10'6 (4.20-5.60); RED CELL DISTRIBUTION WIDTH 15.4 % (11.5-14.5)
[2018-05-08] MEDS ORDERED: PRED20TA PO (08:45)
[2018-05-08] MEDS ORDERED: PERM60CR19 TP (08:45)
[2018-05-08 09:00] LABS: ALANINE AMINOTRANSFERASE 22 U/L (12-78); ALBUMIN 3.5 G/DL (3.4-5.0); ALBUMIN/GLOBULIN RATIO 0.9 (1.1-1.5); ALKALINE PHOSPHATASE 88 IU/L (46-116); ANION GAP 9 (8-16); ASPARTATE AMINO TRANSFERASE 17 U/L (10-37); BILIRUBIN,TOTAL 0.2 MG/DL (0.1-1.0); BLOOD UREA NITROGEN 13 MG/DL (7-18); BUN/CREATININE RATIO 16.9 (6.6-38.0); CALCIUM 8.6 MG/DL (8.5-10.1); CHLORIDE 107 MMOL/L (99-107); CREATININE 0.77 MG/DL (0.40-0.90); GLUCOSE 110 MG/DL (70-104); POTASSIUM 3.7 MMOL/L (3.5-5.1); SODIUM 142 MMOL/L (135-145); TOTAL CARBON DIOXIDE 26.2 MMOL/L (24-32); TOTAL PROTEIN 7.2 G/DL (6.4-8.2); eGFR 76 ML/MIN
[2018-05-08 09:07] LABS: MAGNESIUM 1.8 MG/DL (1.5-2.4)
[2018-05-08 09:53] VITALS: BP 162/75
[2018-05-10] MEDS ORDERED: LEVO500T89 PO (20:13)
[2018-05-12] MEDS ORDERED: LEVO500T89 PO (15:43)
[2018-05-12] MEDS ORDERED: PRED20TA PO (15:43)
[2018-05-12] MEDS ORDERED: TIOT4MIS2 IH (15:55)
[2018-05-12] MEDS ORDERED: ALBU2.5V10 NEB (15:59)
[2018-05-12] MEDS ORDERED: ALEN70TA37 PO (16:08)
[2018-05-12] MEDS ORDERED: CALC-159 PO (16:09)
== END 2018-05-08 09:55 | disposition home or self-care (01) ==
LOC: ER 07:44
DX: J44.1 Chronic obstructive pulmonary disease with (acute) exacerbation (principal); R21 Rash and other nonspecific skin eruption; E78.00 Pure hypercholesterolemia, unspecified; I10 Essential (primary) hypertension; K21.9 Gastro-esophageal reflux disease without esophagitis; G89.29 Other chronic pain; F17.210 Nicotine dependence, cigarettes, uncomplicated; Z98.890 Other specified postprocedural states; Z56.0 Unemployment, unspecified; Z88.0 Allergy status to penicillin; Z88.5 Allergy status to narcotic agent; Z88.2 Allergy status to sulfonamides; Z88.8 Allergy status to other drugs, medicaments and biological substances; Z79.82 Long term (current) use of aspirin; Z79.899 Other long term (current) drug therapy
CPT/HCPCS: 36415; 71045; 80053; 83735; 83880; 84484; 85025; 93005; 94640; 94760; 96372; 99284; J2930

== ENCOUNTER 2018-05-12 11:05 | Inpatient (IN) | payer MEDICARE, MEDICAID | END 2018-05-14 09:55 | disposition home or self-care (01) | LOC: ER 11:05 → ED HOLD 15:07 → SUR 3N 18:45 | DX: J96.01 Acute respiratory failure with hypoxia (principal); I26.09 Other pulmonary embolism with acute cor pulmonale; J44.1 Chronic obstructive pulmonary disease with (acute) exacerbation; Z68.41 Body mass index [BMI] 40.0-44.9, adult; I50.9 Heart failure, unspecified; E66.01 Morbid (severe) obesity due to excess calories ==

== ENCOUNTER 2018-05-26 16:55 | Emergency (ER) | payer MEDICARE, MEDICAID ==
[~2018-05-26] VITALS: Ht 167.6 cm; Wt 102.0 kg
[~2018-05-26 16:55] MED LIST changes: +ALBU2.5V10 NEB; +ALEN70TA37 PO; +CALC-159 PO; +FURO-150 PO; -PRED20TA PO; -SPIIN IH; +TIOT4MIS2 IH
[2018-05-26 17:54] LABS: CLARITY,URINE CLEAR (Clear); COLOR,URINE YELLOW (Yellow); GLUCOSE, URINE NEGATIVE (Neg); KETONES,URINE NEGATIVE (Neg); LEUKOCYTE ESTERASE ,URINE NEGATIVE (Neg); NITRITES, URINE NEGATIVE (Neg); OCCULT BLOOD,URINE NEGATIVE (Neg); PH,URINE 5.5 (4.8-8.0); PROTEIN,URINE NEGATIVE (Neg); UROBILINOGEN,URINE 0.2 E.U/dL (0.2-1.0)
[2018-05-26 18:01] LABS: UA COLLECTION TYPE CLN CATCH MIDSTREAM
[2018-05-26 18:43] LABS: BASOPHILS # (AUTO) 0.1 X10'3 (0-0.2); BASOPHILS % (AUTO) 0.6 % (0-1); EOSINOPHILS # (AUTO) 0.7 X10'3 (0-0.9); EOSINOPHILS % (AUTO) 4.2 % (0-6); HEMATOCRIT 37.9 % (35.0-45.0); HEMOGLOBIN 12.4 g/dl (12.0-16.0); LYMPHOCYTES # (AUTO) 2.6 X10'3 (1.1-4.8); LYMPHOCYTES % (AUTO) 16.8 % (21-51); MEAN CORPUSCULAR HGB CONC 32.6 g/dL (33.0-36.5); MEAN CORPUSCULAR VOLUME 79.7 FL (78-98); MEAN PLATELET VOLUME 8.3 FL (7.4-10.4); MONOCYTES % (AUTO) 6.5 % (2-12); NEUTROPHILS # (AUTO) 11.3 X10'3 (1.8-7.7); NEUTROPHILS % (AUTO) 71.9 % (42-75); PLATELET COUNT 307 X10'3 (140-440); RED BLOOD COUNT 4.76 X10'6 (4.20-5.60); RED CELL DISTRIBUTION WIDTH 15.7 % (11.5-14.5); WHITE BLOOD COUNT 15.7 X10'3 (4.5-11.0)
[2018-05-26 18:57] LABS: ALANINE AMINOTRANSFERASE 19 U/L (12-78); ALBUMIN 3.5 G/DL (3.4-5.0); ALKALINE PHOSPHATASE 87 IU/L (46-116); ANION GAP 12 (8-16); ASPARTATE AMINO TRANSFERASE 11 U/L (10-37); BILIRUBIN,TOTAL 0.3 MG/DL (0.1-1.0); BLOOD UREA NITROGEN 15 MG/DL (7-18); BUN/CREATININE RATIO 14.3 (6.6-38.0); CALCIUM 8.7 MG/DL (8.5-10.1); CHLORIDE 101 MMOL/L (99-107); CREATININE 1.05 MG/DL (0.40-0.90); GLUCOSE 114 MG/DL (70-104); POTASSIUM 3.4 MMOL/L (3.5-5.1); SODIUM 138 MMOL/L (135-145); TOTAL CARBON DIOXIDE 24.7 MMOL/L (24-32); TOTAL PROTEIN 7.1 G/DL (6.4-8.2); eGFR 53 ML/MIN
[2018-05-26 19:01] LABS: PARTIAL THROMBOPLASTIN TIME 30 SECONDS (22-32); PROTHROMBIN TIME 10.5 SECONDS (9.0-12.0)
[2018-05-26 19:08] LABS: TOTAL CELLS COUNTED 100
[2018-05-26 19:10] LABS: PLATELET ESTIMATE NORMAL; POLYCHROMASIA 1+
[2018-05-26] MEDS ORDERED: methylPREDNISolone sod succ 125mg/2ml vial IV ONE (19:55)
[2018-05-26] MEDS ORDERED: ipratropium/albuterol 3ml nebule NEB ONE (19:55)
[2018-05-26] MEDS ORDERED: predniSONE 20 mg tablet PO ONE (20:10)
[2018-05-26] MEDS ORDERED: levoFLOXACIN 250mg tablet PO ONE (20:20)
[2018-05-26] MEDS ORDERED: levoFLOXACIN 500mg tablet PO ONE (20:20)
[2018-05-26] MEDS ORDERED: PRED20TA PO (20:25)
[2018-05-26] MEDS ORDERED: BENZ-16 PO (20:25)
[2018-05-26] MEDS ORDERED: LEVO500T2 PO (20:25)
[2018-05-26 20:51] VITALS: BP 139/83
== END 2018-05-26 20:52 | disposition home or self-care (01) ==
LOC: ER 16:56
DX: J44.1 Chronic obstructive pulmonary disease with (acute) exacerbation (principal); M54.2 Cervicalgia; J80 Acute respiratory distress syndrome; E78.00 Pure hypercholesterolemia, unspecified; I10 Essential (primary) hypertension; G89.29 Other chronic pain; K21.9 Gastro-esophageal reflux disease without esophagitis; M81.0 Age-related osteoporosis without current pathological fracture; Z88.0 Allergy status to penicillin; Z88.6 Allergy status to analgesic agent; Z88.2 Allergy status to sulfonamides; Z88.1 Allergy status to other antibiotic agents; Z79.82 Long term (current) use of aspirin; Z79.899 Other long term (current) drug therapy; Z79.2 Long term (current) use of antibiotics; Z98.890 Other specified postprocedural states; Z87.891 Personal history of nicotine dependence; Z56.0 Unemployment, unspecified
CPT/HCPCS: 36415; 71045; 80053; 81003; 83605; 84145; 84484; 85025; 85610; 85730; 87040; 93005; 94640; 94760; 96374; 99284; J2930; J7512

== ENCOUNTER 2018-06-07 00:55 | Emergency (ER) | payer MEDICARE, MEDICAID ==
[~2018-06-07] VITALS: Ht 167.6 cm; Wt 100.0 kg
[~2018-06-07 00:55] MED LIST changes: +BENZ-16 PO; +PRED20TA PO
[2018-06-07] MEDS ORDERED: albuterol 2.5 MG/3 ML nebule NEB ONE (01:35)
[2018-06-07] MEDS ORDERED: ipratropium/albuterol 3ml nebule NEB ONE (01:35)
[2018-06-07 01:40] LABS: BASOPHILS # (AUTO) 0.1 X10'3 (0-0.2); BASOPHILS % (AUTO) 0.7 % (0-1); EOSINOPHILS # (AUTO) 0.4 X10'3 (0-0.9); EOSINOPHILS % (AUTO) 2.5 % (0-6); HEMATOCRIT 36.6 % (35.0-45.0); HEMOGLOBIN 11.9 g/dl (12.0-16.0); LYMPHOCYTES # (AUTO) 2.4 X10'3 (1.1-4.8); LYMPHOCYTES % (AUTO) 16.7 % (21-51); MEAN CORPUSCULAR HEMOGLOBIN 26.1 PG (27.0-31.0); MEAN CORPUSCULAR HGB CONC 32.4 g/dL (33.0-36.5); MEAN CORPUSCULAR VOLUME 80.4 FL (78-98); MONOCYTES % (AUTO) 6.9 % (2-12); NEUTROPHILS # (AUTO) 10.6 X10'3 (1.8-7.7); NEUTROPHILS % (AUTO) 73.2 % (42-75); PLATELET COUNT 277 X10'3 (140-440); RED BLOOD COUNT 4.54 X10'6 (4.20-5.60); RED CELL DISTRIBUTION WIDTH 16.1 % (11.5-14.5); WHITE BLOOD COUNT 14.5 X10'3 (4.5-11.0)
[2018-06-07 02:20] LABS: ALANINE AMINOTRANSFERASE 17 U/L (12-78); ALBUMIN/GLOBULIN RATIO 0.9 (1.1-1.5); ALKALINE PHOSPHATASE 78 IU/L (46-116); ANION GAP 9 (8-16); ASPARTATE AMINO TRANSFERASE 12 U/L (10-37); BILIRUBIN,TOTAL 0.3 MG/DL (0.1-1.0); BLOOD UREA NITROGEN 13 MG/DL (7-18); BUN/CREATININE RATIO 14.1 (6.6-38.0); CALCIUM 8.6 MG/DL (8.5-10.1); CHLORIDE 105 MMOL/L (99-107); CREATININE 0.92 MG/DL (0.40-0.90); GLUCOSE 122 MG/DL (70-104); POTASSIUM 3.7 MMOL/L (3.5-5.1); SODIUM 139 MMOL/L (135-145); TOTAL PROTEIN 6.4 G/DL (6.4-8.2); eGFR 62 ML/MIN
[2018-06-07 02:21] LABS: PARTIAL THROMBOPLASTIN TIME 30 SECONDS (22-32)
[2018-06-07] MEDS ORDERED: acetaminophen 325mg tablet PO STA (02:39)
[2018-06-07 03:08] VITALS: BP 162/103
[2018-06-07] MEDS ORDERED: methylPREDNISolone sod succ 125mg/2ml vial IV ONE (03:10)
[2018-06-07] MEDS ORDERED: ALBU18HF2 INH (03:43)
[2018-06-07] MEDS ORDERED: PRED20TA PO (03:43)
== END 2018-06-07 03:17 | disposition home or self-care (01) ==
LOC: ER 00:57
DX: J44.1 Chronic obstructive pulmonary disease with (acute) exacerbation (principal); I20.9 Angina pectoris, unspecified; I10 Essential (primary) hypertension; E78.00 Pure hypercholesterolemia, unspecified; K21.9 Gastro-esophageal reflux disease without esophagitis; G89.29 Other chronic pain; M81.0 Age-related osteoporosis without current pathological fracture; Z88.0 Allergy status to penicillin; Z88.5 Allergy status to narcotic agent; Z88.2 Allergy status to sulfonamides; Z88.1 Allergy status to other antibiotic agents; Z88.8 Allergy status to other drugs, medicaments and biological substances; Z79.82 Long term (current) use of aspirin; Z79.899 Other long term (current) drug therapy; Z87.891 Personal history of nicotine dependence; Z56.0 Unemployment, unspecified
CPT/HCPCS: 36415; 71045; 80053; 84484; 85025; 85610; 85730; 93005; 94640; 94760; 96374; 99284; J2930

== ENCOUNTER 2018-06-10 07:32 | Inpatient (IN) | payer MEDICARE, MEDICAID ==
[~2018-06-10] VITALS: Ht 167.6 cm; Wt 100.0 kg
[2018-06-10] MEDS ORDERED: albuterol 2.5 MG/3 ML nebule CONTNEB PRN (08:20)
[2018-06-10] MEDS ORDERED: methylPREDNISolone sod succ 125mg/2ml vial IV ONE (08:20)
[2018-06-10 08:45] LABS: ABG BASE EXCESS 1.1 mmol/L (-2.0-3.0); ABG HCO3 25.1 mmol/L (22.0-26.0); ABG OXYGEN SATURATION 92.9 % (95-98); ABG PCO2 (T) 37.8 mmHg (32.0-45.0); ABG PO2 (T) 62.5 mmHg (83-108); ALLEN'S TEST Positive; FCOHb 0.3 % (0.5-1.5); FLOW 2 L/min; FMetHb 0.1 % (0.3-1.12); FO2Hb 92.5 % (94-100); TOTAL HEMOGLOBIN 12.2 G/dl (12.0-16.0)
[2018-06-10 09:13] LABS: BASOPHILS # (AUTO) 0.1 X10'3 (0-0.2); BASOPHILS % (AUTO) 0.4 % (0-1); EOSINOPHILS # (AUTO) 0.1 X10'3 (0-0.9); EOSINOPHILS % (AUTO) 0.5 % (0-6); HEMATOCRIT 35.5 % (35.0-45.0); HEMOGLOBIN 11.4 g/dl (12.0-16.0); LYMPHOCYTES # (AUTO) 1.5 X10'3 (1.1-4.8); LYMPHOCYTES % (AUTO) 8.2 % (21-51); MEAN CORPUSCULAR HEMOGLOBIN 25.9 PG (27.0-31.0); MEAN CORPUSCULAR HGB CONC 32.2 g/dL (33.0-36.5); MEAN CORPUSCULAR VOLUME 80.4 FL (78-98); MEAN PLATELET VOLUME 7.8 FL (7.4-10.4); MONOCYTES # (AUTO) 1.1 X10'3 (0-0.9); MONOCYTES % (AUTO) 6.1 % (2-12); NEUTROPHILS % (AUTO) 84.8 % (42-75); PLATELET COUNT 321 X10'3 (140-440); RED BLOOD COUNT 4.42 X10'6 (4.20-5.60); RED CELL DISTRIBUTION WIDTH 16.4 % (11.5-14.5); WHITE BLOOD COUNT 17.7 X10'3 (4.5-11.0)
[2018-06-10 09:28] LABS: ALANINE AMINOTRANSFERASE 19 U/L (12-78); ALKALINE PHOSPHATASE 70 IU/L (46-116); ANION GAP 8 (8-16); ASPARTATE AMINO TRANSFERASE 9 U/L (10-37); BILIRUBIN,TOTAL 0.3 MG/DL (0.1-1.0); BLOOD UREA NITROGEN 13 MG/DL (7-18); BUN/CREATININE RATIO 16.7 (6.6-38.0); CALCIUM 8.1 MG/DL (8.5-10.1); CHLORIDE 106 MMOL/L (99-107); CREATININE 0.78 MG/DL (0.40-0.90); GLUCOSE 119 MG/DL (70-104); POTASSIUM 3.5 MMOL/L (3.5-5.1); SODIUM 139 MMOL/L (135-145); TOTAL CARBON DIOXIDE 24.7 MMOL/L (24-32); TOTAL PROTEIN 6.1 G/DL (6.4-8.2); eGFR 75 ML/MIN
[2018-06-10] MEDS ORDERED: CefTRIAXone 2gm/D5W 50ml 50 ML IV ONE (09:40)
[2018-06-10] MEDS ORDERED: azithromycin/NS 500mg/250ml 250 ML IV ONE (09:40)
--- NOTE | 2018-06-10 11:03 | NUR ---
Called Dr. Viveros to get an ETA of his arrival in the department. He said he will, "get there eventually" and that he's "pretty busy up there". MARCO Fowler was made aware.
[2018-06-10] MEDS ORDERED: ondansetron/PF 4mg/2ml inj IV PRN (11:40)
[2018-06-10] MEDS ORDERED: mag hydrox/Alum hydrox/simeth 30ml oral suspension PO PRN (11:40)
[2018-06-10] MEDS ORDERED: magnesium hydroxide 30ml (MOM) UD suspension PO PRN (11:40)
[2018-06-10] MEDS ORDERED: acetaminophen 325mg tablet PO PRN (11:40)
[2018-06-10] MEDS ORDERED: PRED20TA PO (12:08)
[2018-06-10] MEDS: predniSONE 20 mg tablet PO SCH (13:08)
--- NOTE | 2018-06-10 13:09 | NUR ---
spoke to dr. grace, did not give 40mg prednisone, held till tomorrow since pt took 40mg at home this AM and solumedrol 125mg in ER.
[2018-06-10 15:00] VITALS: BP 122/57
[2018-06-10] MEDS: ipratropium/albuterol 3ml nebule NEB SCH ×3 (15:00→23:40)
--- NOTE | 2018-06-10 15:00 | NUR ---
Received patient from ER. VSS. no complaints from patient.
--- NOTE | 2018-06-10 18:04 | NUR ---
Problems reprioritized. Patient report given, questions answered & plan of care reviewed with MEHDI Espino.
--- NOTE | 2018-06-10 18:30 | NUR ---
Patient in room CAROLANN 356. I have received report from MEHDI Chavez and had the opportunity to ask questions and assume patient care.
[2018-06-10 20:00] VITALS: BP 107/51
[2018-06-10] MEDS: heparin, porcine 5000 units/ml vial SQ SCH (20:39)
[2018-06-11] VITALS: BP 130/65
[2018-06-11] MEDS: ipratropium/albuterol 3ml nebule NEB SCH ×3 (03:39→12:07)
[2018-06-11 05:18] LABS: BASOPHILS # (AUTO) 0.1 X10'3 (0-0.2); BASOPHILS % (AUTO) 0.7 % (0-1); EOSINOPHILS % (AUTO) 0.1 % (0-6); HEMATOCRIT 35.2 % (35.0-45.0); HEMOGLOBIN 11.3 g/dl (12.0-16.0); LYMPHOCYTES % (AUTO) 14.3 % (21-51); MEAN CORPUSCULAR HEMOGLOBIN 25.7 PG (27.0-31.0); MEAN CORPUSCULAR VOLUME 80.5 FL (78-98); MEAN PLATELET VOLUME 8.4 FL (7.4-10.4); MONOCYTES # (AUTO) 0.9 X10'3 (0-0.9); MONOCYTES % (AUTO) 6.1 % (2-12); NEUTROPHILS # (AUTO) 11.3 X10'3 (1.8-7.7); NEUTROPHILS % (AUTO) 78.8 % (42-75); PLATELET COUNT 348 X10'3 (140-440); RED BLOOD COUNT 4.38 X10'6 (4.20-5.60); RED CELL DISTRIBUTION WIDTH 16.3 % (11.5-14.5); WHITE BLOOD COUNT 14.4 X10'3 (4.5-11.0)
[2018-06-11 05:41] LABS: ALBUMIN 2.8 G/DL (3.4-5.0); ANION GAP 10 (8-16); BLOOD UREA NITROGEN 16 MG/DL (7-18); BUN/CREATININE RATIO 21.6 (6.6-38.0); CALCIUM 8.7 MG/DL (8.5-10.1); CHLORIDE 106 MMOL/L (99-107); CREATININE 0.74 MG/DL (0.40-0.90); GLUCOSE 137 MG/DL (70-104); POTASSIUM 3.8 MMOL/L (3.5-5.1); SODIUM 143 MMOL/L (135-145); eGFR 80 ML/MIN
--- NOTE | 2018-06-11 06:09 | NUR ---
Problems reprioritized. Patient report given, questions answered & plan of care reviewed with MEHDI Mcallister.
--- NOTE | 2018-06-11 06:20 | NUR ---
Patient in room CAROLANN 356. I have received report from AVA HARDING and had the opportunity to ask questions and assume patient care.
[2018-06-11 07:33] VITALS: BP 116/43
[2018-06-11] MEDS ORDERED: nitroGLYCERIN 0.4mg SUBLingual tab SL PRN (08:15)
[2018-06-11] MEDS ORDERED: HYDROcodone/acetaminophen 10/325mg tab PO PRN (08:15)
[2018-06-11] MEDS: predniSONE 20 mg tablet PO SCH (08:58)
[2018-06-11] MEDS: heparin, porcine 5000 units/ml vial SQ SCH (08:59)
[2018-06-11] MEDS ORDERED: aspirin 81mg tablet.DR PO SCH (09:00)
[2018-06-11] MEDS ORDERED: pantoprazole 40mg Tablet.DR PO SCH (09:00)
[2018-06-11] MEDS ORDERED: levoFLOXACIN 750MG TABLET PO SCH (11:00)
[2018-06-11 11:24] VITALS: BP 118/64
[2018-06-11] MEDS ORDERED: PRED10TA23 PO (11:26)
[2018-06-11] MEDS ORDERED: LEVO750T21 PO (11:26)
--- NOTE | 2018-06-11 12:36 | NUR ---
PT IS DISCHARGED, WENT OVER HER PAPERWORK WITH HER. SHE IS READY FOR DISCHARGE BUT WANTS TO STAY TO EAT HER LUNCH. SHE IS HER OWN RIDE HOME. SHE STATES SHE IS SAFE TO DRIVE BUT WANTS A W/C OUT TO THE LOBBY
[2018-06-11 12:39] VITALS: BP 124/60
[2018-06-12] MEDS ORDERED: calcium carbonate/vitamin D3 tablet PO SCH (08:00)
[2018-06-12] MEDS ORDERED: non-formulary drug (Tiotropium Bromide (Spiriva Respimat) 2 PUFFS) IH SCH (08:00)
[2018-06-12] MEDS ORDERED: non-formulary drug (Fluticasone/Vilanterol (Breo Ellipta 100-25 Mcg INH) 1 PUFF) INH SCH (08:00)
== END 2018-06-11 13:09 | disposition home or self-care (01) | DRG 189 ==
LOC: ER 07:32 → SUR 3N 14:45 → CMPBEDREQ 20:09
PROVIDERS: ADMIT Family Medicine; ATTEND Family Medicine
DX: J96.20 Acute and chronic respiratory failure, unspecified whether with hypoxia or hypercapnia (principal); J43.9 Emphysema, unspecified; J20.9 Acute bronchitis, unspecified; E78.00 Pure hypercholesterolemia, unspecified; F41.9 Anxiety disorder, unspecified; G89.4 Chronic pain syndrome; I11.0 Hypertensive heart disease with heart failure; F32.9 Major depressive disorder, single episode, unspecified; M54.9 Dorsalgia, unspecified; I50.9 Heart failure, unspecified; K21.9 Gastro-esophageal reflux disease without esophagitis; M81.0 Age-related osteoporosis without current pathological fracture; Z99.81 Dependence on supplemental oxygen; Z88.0 Allergy status to penicillin; Z88.2 Allergy status to sulfonamides; Z88.5 Allergy status to narcotic agent; Z91.041 Radiographic dye allergy status; Z87.891 Personal history of nicotine dependence; Z83.3 Family history of diabetes mellitus; Z84.89 Family history of other specified conditions
CPT/HCPCS: 36415; 36600; 71046; 80048; 80053; 82803; 83605; 83880; 84484; 85018; 85025; 87040; 87070; 87077; 87185; 93005; 94640; 94760; 96365; 96368; 96375; 99285; G0378; J0456; J0696; J1644; J2930; J7512

== ENCOUNTER → 2018-07-03 | Emergency (ER) | payer MEDICARE, MEDICAID ==
[~2018-07-03] VITALS: Ht 167.6 cm; Wt 102.0 kg
[~2018-07-03] MED LIST changes: -ALBU2.5V10 NEB; +ALBU90AE INH; -ALEN70TA37 PO; -BENZ-16 PO; -FURO-150 PO; +MAGN500C16 PO; +PRED10TA23 PO; -PRED20TA PO; +diltiazem 5mg/ml 5ml inj. IV ONE
[2018-07-03 12:34] LABS: BASOPHILS # (AUTO) 0.1 X10'3 (0-0.2); EOSINOPHILS # (AUTO) 0.1 X10'3 (0-0.9); MEAN PLATELET VOLUME 8.9 FL (7.4-10.4)
[2018-07-03 12:35] LABS: BASOPHILS % (AUTO) 0.7 % (0-1); EOSINOPHILS % (AUTO) 0.5 % (0-6); HEMATOCRIT 41.9 % (35.0-45.0); HEMOGLOBIN 13.9 g/dl (12.0-16.0); LYMPHOCYTES # (AUTO) 1.9 X10'3 (1.1-4.8); LYMPHOCYTES % (AUTO) 13.2 % (21-51); MEAN CORPUSCULAR HGB CONC 33.1 g/dL (33.0-36.5); MEAN CORPUSCULAR VOLUME 81.7 FL (78-98); MONOCYTES # (AUTO) 0.8 X10'3 (0-0.9); MONOCYTES % (AUTO) 5.3 % (2-12); NEUTROPHILS # (AUTO) 11.8 X10'3 (1.8-7.7); NEUTROPHILS % (AUTO) 80.3 % (42-75); PLATELET COUNT 275 X10'3 (140-440); RED BLOOD COUNT 5.13 X10'6 (4.20-5.60); WHITE BLOOD COUNT 14.6 X10'3 (4.5-11.0)
[2018-07-03 13:38] LABS: PARTIAL THROMBOPLASTIN TIME 28 SECONDS (22-32)
[2018-07-03 13:40] LABS: ALANINE AMINOTRANSFERASE 20 U/L (12-78); ALBUMIN 3.1 G/DL (3.4-5.0); ALBUMIN/GLOBULIN RATIO 0.9 (1.1-1.5); ALKALINE PHOSPHATASE 71 IU/L (46-116); ANION GAP 9 (8-16); ASPARTATE AMINO TRANSFERASE 7 U/L (10-37); BILIRUBIN,TOTAL 0.2 MG/DL (0.1-1.0); BLOOD UREA NITROGEN 20 MG/DL (7-18); BUN/CREATININE RATIO 23.3 (6.6-38.0); CALCIUM 8.7 MG/DL (8.5-10.1); CHLORIDE 105 MMOL/L (99-107); CREATININE 0.86 MG/DL (0.40-0.90); GLUCOSE 117 MG/DL (70-104); POTASSIUM 4.2 MMOL/L (3.5-5.1); SODIUM 139 MMOL/L (135-145); TOTAL CARBON DIOXIDE 24.6 MMOL/L (24-32); TOTAL PROTEIN 6.4 G/DL (6.4-8.2); eGFR 67 ML/MIN
[2018-07-03 14:35] LABS: D-DIMER 0.22 MG/L FEU (0-0.50)
--- NOTE | 2018-07-03 16:25 | NUR ---
PATIENT REFUSED CARDIZEM,DR. RIGGS MADE AWARE,MD TO TALK TO PT.NO NEW ORDER AT THIS TIME.
[2018-07-03 16:39] VITALS: BP 153/98
== END | disposition home or self-care (01) ==
LOC: ER 11:58
DX: I48.92 Unspecified atrial flutter (principal); I49.3 Ventricular premature depolarization; E78.00 Pure hypercholesterolemia, unspecified; I10 Essential (primary) hypertension; J43.9 Emphysema, unspecified; K21.9 Gastro-esophageal reflux disease without esophagitis; G89.29 Other chronic pain; Z98.890 Other specified postprocedural states; Z56.0 Unemployment, unspecified; Z88.0 Allergy status to penicillin; Z88.6 Allergy status to analgesic agent; Z88.2 Allergy status to sulfonamides; Z88.1 Allergy status to other antibiotic agents; Z79.82 Long term (current) use of aspirin; Z79.899 Other long term (current) drug therapy
CPT/HCPCS: 36415; 71045; 80053; 83735; 83880; 84484; 85025; 85379; 85610; 85730; 93005; 99284

== ENCOUNTER 2018-07-07 18:51 | Emergency (ER) | payer MEDICARE, MEDICAID ==
[~2018-07-07] VITALS: Ht 167.6 cm; Wt 11.4 kg
[~2018-07-07 18:51] MED LIST changes: -diltiazem 5mg/ml 5ml inj. IV ONE
[2018-07-07] MEDS: aspirin 81mg tab.chew PO ONE (19:15)
[2018-07-07 19:21] LABS: BASOPHILS # (AUTO) 0.1 X10'3 (0-0.2); EOSINOPHILS # (AUTO) 0.3 X10'3 (0-0.9); EOSINOPHILS % (AUTO) 3.4 % (0-6); HEMATOCRIT 40.3 % (35.0-45.0); HEMOGLOBIN 13.4 g/dl (12.0-16.0); LYMPHOCYTES # (AUTO) 2.9 X10'3 (1.1-4.8); LYMPHOCYTES % (AUTO) 28.9 % (21-51); MEAN CORPUSCULAR HEMOGLOBIN 26.9 PG (27.0-31.0); MEAN CORPUSCULAR HGB CONC 33.2 g/dL (33.0-36.5); MEAN CORPUSCULAR VOLUME 80.9 FL (78-98); MEAN PLATELET VOLUME 8.1 FL (7.4-10.4); MONOCYTES # (AUTO) 0.9 X10'3 (0-0.9); MONOCYTES % (AUTO) 8.8 % (2-12); NEUTROPHILS # (AUTO) 5.9 X10'3 (1.8-7.7); NEUTROPHILS % (AUTO) 57.9 % (42-75); PLATELET COUNT 237 X10'3 (140-440); RED BLOOD COUNT 4.98 X10'6 (4.20-5.60); RED CELL DISTRIBUTION WIDTH 17.3 % (11.5-14.5); WHITE BLOOD COUNT 10.1 X10'3 (4.5-11.0)
[2018-07-07 19:37] LABS: ALANINE AMINOTRANSFERASE 24 U/L (12-78); ALBUMIN 3.4 G/DL (3.4-5.0); ALKALINE PHOSPHATASE 77 IU/L (46-116); ANION GAP 7 (8-16); ASPARTATE AMINO TRANSFERASE 12 U/L (10-37); BILIRUBIN,TOTAL 0.3 MG/DL (0.1-1.0); BLOOD UREA NITROGEN 11 MG/DL (7-18); BUN/CREATININE RATIO 14.3 (6.6-38.0); CALCIUM 8.4 MG/DL (8.5-10.1); CHLORIDE 105 MMOL/L (99-107); CREATININE 0.77 MG/DL (0.40-0.90); GLUCOSE 99 MG/DL (70-104); POTASSIUM 3.9 MMOL/L (3.5-5.1); SODIUM 140 MMOL/L (135-145); TOTAL CARBON DIOXIDE 28.5 MMOL/L (24-32); TOTAL PROTEIN 6.8 G/DL (6.4-8.2); eGFR 76 ML/MIN
[2018-07-07 20:02] VITALS: BP 163/68
[2018-07-09] MEDS ORDERED: LEVO750T21 PO (00:47)
== END 2018-07-07 20:04 | disposition home or self-care (01) ==
LOC: ER 18:51
DX: I20.8 Other forms of angina pectoris (principal); J44.9 Chronic obstructive pulmonary disease, unspecified; I11.0 Hypertensive heart disease with heart failure; I50.9 Heart failure, unspecified; I48.91 Unspecified atrial fibrillation; E78.00 Pure hypercholesterolemia, unspecified; K21.9 Gastro-esophageal reflux disease without esophagitis; G89.29 Other chronic pain; M81.0 Age-related osteoporosis without current pathological fracture; Z98.890 Other specified postprocedural states; Z56.0 Unemployment, unspecified; Z88.0 Allergy status to penicillin; Z88.5 Allergy status to narcotic agent; Z88.2 Allergy status to sulfonamides; Z88.1 Allergy status to other antibiotic agents; Z88.8 Allergy status to other drugs, medicaments and biological substances; Z79.82 Long term (current) use of aspirin; Z79.899 Other long term (current) drug therapy
CPT/HCPCS: 36415; 71045; 80053; 83880; 84484; 85025; 85610; 93005; 99284

== ENCOUNTER 2018-07-24 04:47 | Emergency (ER) | payer MEDICARE, MEDICAID ==
[~2018-07-24] VITALS: Ht 167.6 cm; Wt 109.0 kg
[~2018-07-24 04:47] MED LIST changes: +LEVO750T21 PO
[2018-07-24] MEDS ORDERED: predniSONE 20 mg tablet PO ONE (04:55)
[2018-07-24] MEDS ORDERED: ipratropium/albuterol 3ml nebule NEB ONE (04:55)
[2018-07-24] MEDS ORDERED: LORazepam 1 MG tablet PO ONE (04:55)
--- NOTE | 2018-07-24 05:17 | NUR ---
wasted 1.5 mg of the oral med with Kristal. Not able to waste it in the pyxis r/t the 0.5mg was already wasted. Not able to return the 1 mg tablet due to same reason...they were discarded.
--- NOTE | 2018-07-24 05:17 | NUR ---
Pt refused to take the 1.5mg PO ativan. [employer] dispense system would not allow PO ativan medication return due to 0.5mg already wasted when medication was originally dispensed. The remaining 1.5mg was wasted with MEHDI Hale.
[2018-07-24] MEDS ORDERED: racepinephrine 11.25mg/0.5ml nebule ONE (05:23)
[2018-07-24] MEDS ORDERED: racepinephrine 11.25mg/0.5ml nebule IH ONE (05:25)
[2018-07-24] MEDS ORDERED: PRED20TA PO (06:02)
[2018-07-24 06:18] LABS: BASOPHILS # (AUTO) 0.1 X10'3 (0-0.2); BASOPHILS % (AUTO) 0.6 % (0-1); EOSINOPHILS # (AUTO) 0.3 X10'3 (0-0.9); EOSINOPHILS % (AUTO) 2.1 % (0-6); HEMATOCRIT 37.7 % (35.0-45.0); HEMOGLOBIN 12.2 g/dl (12.0-16.0); LYMPHOCYTES # (AUTO) 4.3 X10'3 (1.1-4.8); LYMPHOCYTES % (AUTO) 29.1 % (21-51); MEAN CORPUSCULAR HEMOGLOBIN 26.8 PG (27.0-31.0); MEAN CORPUSCULAR HGB CONC 32.4 g/dL (33.0-36.5); MEAN CORPUSCULAR VOLUME 82.6 FL (78-98); MEAN PLATELET VOLUME 8.4 FL (7.4-10.4); MONOCYTES # (AUTO) 1.1 X10'3 (0-0.9); MONOCYTES % (AUTO) 7.2 % (2-12); PLATELET COUNT 269 X10'3 (140-440); RED BLOOD COUNT 4.57 X10'6 (4.20-5.60); RED CELL DISTRIBUTION WIDTH 17.6 % (11.5-14.5); WHITE BLOOD COUNT 14.8 X10'3 (4.5-11.0)
--- NOTE | 2018-07-24 06:22 | NUR ---
PATIENT ON BED AWAKE.
[2018-07-24 06:25] LABS: ALANINE AMINOTRANSFERASE 20 U/L (12-78); ALBUMIN 3.2 G/DL (3.4-5.0); ALBUMIN/GLOBULIN RATIO 1.1 (1.1-1.5); ALKALINE PHOSPHATASE 63 IU/L (46-116); ANION GAP 6 (8-16); ASPARTATE AMINO TRANSFERASE 13 U/L (10-37); BILIRUBIN,TOTAL 0.2 MG/DL (0.1-1.0); BLOOD UREA NITROGEN 13 MG/DL (7-18); BUN/CREATININE RATIO 16.5 (6.6-38.0); CALCIUM 8.8 MG/DL (8.5-10.1); CHLORIDE 107 MMOL/L (99-107); CREATININE 0.79 MG/DL (0.40-0.90); GLUCOSE 104 MG/DL (70-104); POTASSIUM 3.7 MMOL/L (3.5-5.1); SODIUM 140 MMOL/L (135-145); TOTAL CARBON DIOXIDE 26.7 MMOL/L (24-32); TOTAL PROTEIN 6.2 G/DL (6.4-8.2); eGFR 74 ML/MIN
--- NOTE | 2018-07-24 06:27 | NUR ---
throat swab specimen taken to the lab.
[2018-07-24] MEDS ORDERED: AZIT250T PO (07:12)
[2018-07-24] MEDS ORDERED: LEVO750T21 PO (07:28)
[2018-07-24 07:31] VITALS: BP 153/82
== END 2018-07-24 07:33 | disposition home or self-care (01) ==
LOC: ER 04:48
DX: R06.00 Dyspnea, unspecified (principal); E78.00 Pure hypercholesterolemia, unspecified; I10 Essential (primary) hypertension; J43.9 Emphysema, unspecified; K21.9 Gastro-esophageal reflux disease without esophagitis; G89.29 Other chronic pain; F17.210 Nicotine dependence, cigarettes, uncomplicated; Z56.0 Unemployment, unspecified; Z88.0 Allergy status to penicillin; Z88.6 Allergy status to analgesic agent; Z88.5 Allergy status to narcotic agent; Z88.2 Allergy status to sulfonamides; Z98.890 Other specified postprocedural states; Z88.1 Allergy status to other antibiotic agents; Z88.8 Allergy status to other drugs, medicaments and biological substances; Z79.82 Long term (current) use of aspirin; Z79.2 Long term (current) use of antibiotics; Z79.899 Other long term (current) drug therapy
CPT/HCPCS: 36415; 71045; 71046; 80053; 83880; 84145; 84484; 85025; 87081; 87880; 93005; 94640; 94760; 99284; J7512

== ENCOUNTER 2018-08-30 06:39 | Inpatient (IN) | payer MEDICARE, MEDICAID ==
[~2018-08-30] VITALS: Ht 167.6 cm; Wt 104.5 kg
[~2018-08-30 06:39] MED LIST changes: +AZIT250T PO; -PRED10TA23 PO
[2018-08-30] MEDS ORDERED: ipratropium/albuterol 3ml nebule NEB ONE (08:00)
[2018-08-30 08:50] LABS: BASOPHILS # (AUTO) 0.1 X10'3 (0-0.2); BASOPHILS % (AUTO) 0.4 % (0-1); EOSINOPHILS # (AUTO) 0.1 X10'3 (0-0.9); EOSINOPHILS % (AUTO) 0.9 % (0-6); HEMATOCRIT 38.6 % (35.0-45.0); HEMOGLOBIN 12.6 g/dl (12.0-16.0); LYMPHOCYTES # (AUTO) 1.2 X10'3 (1.1-4.8); LYMPHOCYTES % (AUTO) 8.6 % (21-51); MEAN CORPUSCULAR HEMOGLOBIN 27.2 PG (27.0-31.0); MEAN CORPUSCULAR HGB CONC 32.6 g/dL (33.0-36.5); MEAN CORPUSCULAR VOLUME 83.3 FL (78-98); MEAN PLATELET VOLUME 8.1 FL (7.4-10.4); MONOCYTES # (AUTO) 0.7 X10'3 (0-0.9); MONOCYTES % (AUTO) 4.8 % (2-12); NEUTROPHILS # (AUTO) 11.5 X10'3 (1.8-7.7); NEUTROPHILS % (AUTO) 85.3 % (42-75); PLATELET COUNT 205 X10'3 (140-440); RED BLOOD COUNT 4.63 X10'6 (4.20-5.60); RED CELL DISTRIBUTION WIDTH 17.8 % (11.5-14.5); WHITE BLOOD COUNT 13.4 X10'3 (4.5-11.0)
[2018-08-30 08:57] LABS: PARTIAL THROMBOPLASTIN TIME 30 SECONDS (22-32)
[2018-08-30 08:58] LABS: ALANINE AMINOTRANSFERASE 23 U/L (12-78); ALBUMIN 3.2 G/DL (3.4-5.0); ALKALINE PHOSPHATASE 65 IU/L (46-116); ANION GAP 9 (8-16); ASPARTATE AMINO TRANSFERASE 8 U/L (10-37); BILIRUBIN,TOTAL 0.3 MG/DL (0.1-1.0); BLOOD UREA NITROGEN 14 MG/DL (7-18); BUN/CREATININE RATIO 17.9 (6.6-38.0); CALCIUM 8.2 MG/DL (8.5-10.1); CHLORIDE 103 MMOL/L (99-107); CREATININE 0.78 MG/DL (0.40-0.90); GLUCOSE 120 MG/DL (70-104); POTASSIUM 3.9 MMOL/L (3.5-5.1); SODIUM 139 MMOL/L (135-145); TOTAL CARBON DIOXIDE 26.8 MMOL/L (24-32); TOTAL PROTEIN 6.5 G/DL (6.4-8.2); eGFR 75 ML/MIN
[2018-08-30 09:28] LABS: D-DIMER < 0.19 MG/L FEU (0-0.50)
--- NOTE | 2018-08-30 10:02 | NUR ---
Bedside report received at this time from MEHDI Roberts. Patient awake, alert, sitting up in bed, family at bedside. Dr Roberts in to assess patient at this time. Patient states she is still feeling short of breath. Continues on O2 2L via nasal canula as per home O2 concentrations, SPO2 93%, RR 20. Patient denies pain at this time, shallot packerTracey Pham at bedside to perform EKG per MD order.
[2018-08-30] MEDS ORDERED: ALEN70TA15 PEG (11:17)
[2018-08-30] MEDS ORDERED: APIX5TAB3 PO (11:17)
[2018-08-30] MEDS ORDERED: TAM50T PO (11:17)
[2018-08-30] MEDS ORDERED: PRED10TA PO (11:21)
[2018-08-30] MEDS ORDERED: METO-411 PO (11:21)
[2018-08-30] MEDS ORDERED: FLUT1BLS4 INH (11:21)
[2018-08-30] MEDS ORDERED: potassium CL 10mEq/100ml bag 100 ML IV PRN ×2 (11:55)
[2018-08-30] MEDS ORDERED: potassium Cl 20 mEq SR tablet PO PRN (11:55)
[2018-08-30] MEDS ORDERED: mag hydrox/Alum hydrox/simeth 30ml oral suspension PO PRN (11:55)
[2018-08-30] MEDS ORDERED: magnesium hydroxide 30ml (MOM) UD suspension PO PRN (11:55)
[2018-08-30] MEDS ORDERED: ondansetron/PF 4mg/2ml inj IV PRN (11:55)
[2018-08-30] MEDS ORDERED: magnesium 4gm in 100ml NS 100 ML IV PRN (11:55)
[2018-08-30] MEDS ORDERED: magnesium Cl slow-release 64mg tablet PO PRN (11:55)
[2018-08-30] MEDS ORDERED: nitroGLYCERIN 0.4mg SUBLingual tab SL PRN (11:55)
[2018-08-30] MEDS ORDERED: acetaminophen 325mg tablet PO PRN (11:55)
[2018-08-30] MEDS ORDERED: magnesium 2GM in 50ml NS 50 ML IV PRN (11:55)
[2018-08-30] MEDS ORDERED: ipratropium/albuterol 3ml nebule NEB PRN (12:05)
[2018-08-30] MEDS ORDERED: non-formulary drug (Alendronate Sodium (Fosamax) 1 TAB) PEG SCH (12:10)
[2018-08-30] MEDS ORDERED: HYDROcodone/acetaminophen 10/325mg tab PO PRN (12:10)
[2018-08-30 12:30] VITALS: BP 104/50
[2018-08-30 15:00] VITALS: BP 133/72
[2018-08-30] MEDS: ipratropium/albuterol 3ml nebule NEB SCH ×3 (15:08→23:05)
--- NOTE | 2018-08-30 17:47 | NUR ---
PAGER ID: [phone] MESSAGE: [id number] ANICETO RAMIREZ PT. SA02 AT 88% ON 2LPM VISA N/C. PT. REFUSES TO HAVE MORE O2. PARAMETERS ARE TO KEEP PT BETWEEN 90-94%. SURGICAL FLOOR [phone]
[2018-08-30 17:53] VITALS: BP 133/72
[2018-08-30] MEDS ORDERED: bumetanide 0.25mg/ml 4ml vial IV ONE (17:55)
--- NOTE | 2018-08-30 18:30 | NUR ---
Patient in room CAROLANN 350. I have received report from AFIA and had the opportunity to ask questions and assume patient care.
--- NOTE | 2018-08-30 18:43 | NUR ---
Pt. in room on 02, not in distress at this time. Gave report to Charley HARDING.
[2018-08-30 19:00] VITALS: BP 128/64
[2018-08-30] MEDS: budesonide 0.5mg/2ml UD nebule IH SCH (19:22)
--- NOTE | 2018-08-30 19:23 | NUR ---
cpap ordered for patient. she refuses it at this point stating it suffocates her to wear one
[2018-08-30] MEDS: apixaban 5mg tablet PO SCH (20:40)
[2018-08-30] MEDS: flecainide 50mg tablet PO SCH (20:40)
[2018-08-30] MEDS: metoprolol succinate 25mg (24-HOUR) SR. Tablet PO SCH (20:40)
[2018-08-30 23:00] VITALS: BP 122/65
[2018-08-31] VITALS (11 sets, daily range): BP systolic 91–130; BP diastolic 58–80
[2018-08-31] MEDS: ipratropium/albuterol 3ml nebule NEB SCH ×6 (03:03→23:01)
[2018-08-31 05:06] LABS: BASOPHILS % (AUTO) 0.4 % (0-1); EOSINOPHILS # (AUTO) 0.3 X10'3 (0-0.9); EOSINOPHILS % (AUTO) 2.2 % (0-6); HEMATOCRIT 40.9 % (35.0-45.0); HEMOGLOBIN 13.4 g/dl (12.0-16.0); LYMPHOCYTES # (AUTO) 2.9 X10'3 (1.1-4.8); LYMPHOCYTES % (AUTO) 24.9 % (21-51); MEAN CORPUSCULAR HEMOGLOBIN 27.2 PG (27.0-31.0); MEAN CORPUSCULAR HGB CONC 32.7 g/dL (33.0-36.5); MEAN CORPUSCULAR VOLUME 83.2 FL (78-98); MEAN PLATELET VOLUME 8.2 FL (7.4-10.4); MONOCYTES # (AUTO) 0.9 X10'3 (0-0.9); MONOCYTES % (AUTO) 7.7 % (2-12); NEUTROPHILS # (AUTO) 7.6 X10'3 (1.8-7.7); NEUTROPHILS % (AUTO) 64.8 % (42-75); PLATELET COUNT 234 X10'3 (140-440); RED BLOOD COUNT 4.91 X10'6 (4.20-5.60); RED CELL DISTRIBUTION WIDTH 17.1 % (11.5-14.5); WHITE BLOOD COUNT 11.7 X10'3 (4.5-11.0)
[2018-08-31 05:12] LABS: ALBUMIN 3.4 G/DL (3.4-5.0); ANION GAP 9 (8-16); BLOOD UREA NITROGEN 16 MG/DL (7-18); BUN/CREATININE RATIO 18.4 (6.6-38.0); CALCIUM 9.2 MG/DL (8.5-10.1); CHLORIDE 101 MMOL/L (99-107); CREATININE 0.87 MG/DL (0.40-0.90); GLUCOSE 97 MG/DL (70-104); MAGNESIUM 2.3 MG/DL (1.5-2.4); POTASSIUM 3.7 MMOL/L (3.5-5.1); SODIUM 140 MMOL/L (135-145); TOTAL CARBON DIOXIDE 29.6 MMOL/L (24-32); eGFR 66 ML/MIN
--- NOTE | 2018-08-31 06:44 | NUR ---
Problems reprioritized. Patient report given, questions answered & plan of care reviewed with
[2018-08-31] MEDS: budesonide 0.5mg/2ml UD nebule IH SCH ×2 (07:20→19:45)
--- NOTE | 2018-08-31 07:25 | NUR ---
Patient in room CAROLANN 350. I have received report from Lady HARDING and had the opportunity to ask questions and assume patient care.
[2018-08-31] MEDS: K and/or MAG REPLACEMENT MC SCH (08:00)
[2018-08-31] MEDS ORDERED: prednisone 10mg tablet PO SCH (08:00)
[2018-08-31] MEDS ORDERED: bumetanide 0.25mg/ml 4ml vial IV SCH (08:00)
[2018-08-31] MEDS: flecainide 50mg tablet PO SCH ×2 (08:30→20:00)
[2018-08-31] MEDS: pantoprazole 40mg Tablet.DR PO SCH (08:30)
[2018-08-31] MEDS: calcium carbonate/vitamin D3 tablet PO SCH (08:31)
[2018-08-31] MEDS: apixaban 5mg tablet PO SCH ×2 (08:31→20:00)
[2018-08-31] MEDS: magnesium oxide 400mg tablet PO SCH (08:31)
[2018-08-31] MEDS: acetaminophen 325mg tablet PO PRN (08:35)
[2018-08-31] MEDS ORDERED: diltiazem 5mg/ml 5ml inj. IV ONE (13:50)
--- NOTE | 2018-08-31 13:55 | NUR ---
Per Demetra on Tele patients HR 180
--- NOTE | 2018-08-31 13:56 | NUR ---
Received a call from Tele that patients underlining rhytmn was A paced and now she just went into underlining rhythm of Rapid Afib 150-160. Went in to take patients vitals PCT Mickey was already taking them for me and her BP was 119/78 HR 91 SPO2 91 % RA. Contacted Dr Levin and received orders for 10 mg IV Diltiazem IV x1 then order Metoprolol 5mg IV Q5min x3 doses for heart rate over 140. Transfer patient to PCU. Called Manager Appointment to get a room and she will call Tele to come over here to give medication.
--- NOTE | 2018-08-31 14:12 | NUR ---
Per Patient she cant take Cardizem due to it causing breathing issues. Patient also called her caregiver assisted living Dr Friend at [phone]. phone number given to Dr Levin to contact.
--- NOTE | 2018-08-31 14:19 | NUR ---
Per Dr Levin give to Metoprolol dc Diltiazem. Patient informed and RN from Tele coming to our floor to give medication
[2018-08-31] MEDS: metoprolol tartrate 1mg/ml inj IV PRN ×3 (14:36→15:17)
[2018-08-31] MEDS ORDERED: metoprolol tartrate 12.5mg (1/2 tablet) PO PRN (14:40)
--- NOTE | 2018-08-31 14:45 | NUR ---
Problems reprioritized. Patient report given, questions answered & plan of care reviewed with Peewee HARDING. Patient will be transfered to PCU via hospital bed with belongings including oxygen tank from home. Peewee HARDING will bring over second dose of Metoprolol IV and then transport to PCU with PCT.
[2018-08-31] MEDS ORDERED: amiodarone 150mg/dext, iso-os 100 ML IV ONE (15:45)
[2018-08-31] MEDS: amiodarone/D5 360MG/200ML BAG 200 ML IV SCH ×2 (16:17→22:08)
--- NOTE | 2018-08-31 18:10 | NUR ---
Problems reprioritized. Patient report given, questions answered & plan of care reviewed with Radha HARDING.
--- NOTE | 2018-08-31 18:10 | NUR ---
Two RN Skin Assessment has been completed at shift change with Peewee RN,all skin assessed,with the following findings. Left upper chest surgical incission well approximate with no redness. All skin is intact.
--- NOTE | 2018-08-31 18:15 | NUR ---
Patient in room PCU 3025. I have received report from Peewee HARDING and had the opportunity to ask questions and assume patient care.
[2018-08-31] MEDS: bumetanide 0.25mg/ml 4ml vial IV SCH (20:00)
--- NOTE | 2018-08-31 21:10 | NUR ---
Notification: Called Dr. Haider RE: giving flecainide while pt is on an amio gtt. Orders to hold flecainide tonight and have hospitalist address in the am.
[2018-08-31] MEDS: metoprolol succinate 25mg (24-HOUR) SR. Tablet PO SCH (22:08)
[2018-09-01] VITALS (8 sets, daily range): BP systolic 104–133; BP diastolic 54–80
[2018-09-01] MEDS: ipratropium/albuterol 3ml nebule NEB SCH ×6 (02:57→23:04)
[2018-09-01] MEDS: acetaminophen 325mg tablet PO PRN ×2 (04:01→13:18)
[2018-09-01 05:49] LABS: BASOPHILS # (AUTO) 0.2 X10'3 (0-0.2); BASOPHILS % (AUTO) 1.1 % (0-1); EOSINOPHILS # (AUTO) 0.2 X10'3 (0-0.9); EOSINOPHILS % (AUTO) 1.8 % (0-6); HEMATOCRIT 41.4 % (35.0-45.0); HEMOGLOBIN 13.7 g/dl (12.0-16.0); LYMPHOCYTES # (AUTO) 2.9 X10'3 (1.1-4.8); LYMPHOCYTES % (AUTO) 21.6 % (21-51); MEAN CORPUSCULAR HEMOGLOBIN 27.4 PG (27.0-31.0); MEAN PLATELET VOLUME 8.5 FL (7.4-10.4); MONOCYTES # (AUTO) 1.2 X10'3 (0-0.9); MONOCYTES % (AUTO) 8.6 % (2-12); NEUTROPHILS # (AUTO) 9.1 X10'3 (1.8-7.7); NEUTROPHILS % (AUTO) 66.9 % (42-75); PLATELET COUNT 249 X10'3 (140-440); RED BLOOD COUNT 4.99 X10'6 (4.20-5.60); RED CELL DISTRIBUTION WIDTH 17.4 % (11.5-14.5); WHITE BLOOD COUNT 13.6 X10'3 (4.5-11.0)
[2018-09-01 06:08] LABS: ALBUMIN 3.3 G/DL (3.4-5.0); ANION GAP 9 (8-16); BLOOD UREA NITROGEN 18 MG/DL (7-18); BUN/CREATININE RATIO 16.5 (6.6-38.0); CALCIUM 8.8 MG/DL (8.5-10.1); CHLORIDE 98 MMOL/L (99-107); CREATININE 1.09 MG/DL (0.40-0.90); GLUCOSE 123 MG/DL (70-104); MAGNESIUM 1.9 MG/DL (1.5-2.4); POTASSIUM 3.5 MMOL/L (3.5-5.1); SODIUM 138 MMOL/L (135-145); TOTAL CARBON DIOXIDE 31.2 MMOL/L (24-32); eGFR 51 ML/MIN
--- NOTE | 2018-09-01 06:15 | NUR ---
Patient in room PCU 3025. I have received report from MEHDI Agosto and had the opportunity to ask questions and assume patient care. Patient is currently resting in bed, amiodarone drip running at 16.66ml/hr, on bedside monitor, assessed pacemaker incision site and it is CDI wtih no signs of infection. No acute distress, will continue to monitor.
--- NOTE | 2018-09-01 06:34 | NUR ---
Problems reprioritized. Patient report given, questions answered & plan of care reviewed with BOLIVAR HARDING.
[2018-09-01] MEDS: budesonide 0.5mg/2ml UD nebule IH SCH ×2 (07:02→19:12)
--- NOTE | 2018-09-01 07:10 | NUR ---
PAGER ID: [phone] MESSAGE: MEHDI Coe, ext [phone], [id number], Bhavesh. Patient still on amiodarone drip, rate has been controlled in the 70s, has flecainide ordered for this morning, please advise. Thank you.
[2018-09-01] MEDS: potassium Cl 20 mEq SR tablet PO PRN ×3 (08:15→20:29)
[2018-09-01] MEDS: pantoprazole 40mg Tablet.DR PO SCH (08:16)
[2018-09-01] MEDS: calcium carbonate/vitamin D3 tablet PO SCH (08:16)
[2018-09-01] MEDS: magnesium oxide 400mg tablet PO SCH (08:17)
[2018-09-01] MEDS: flecainide 50mg tablet PO SCH ×2 (08:21→20:28)
[2018-09-01] MEDS: apixaban 5mg tablet PO SCH ×2 (08:21→20:29)
[2018-09-01] MEDS: K and/or MAG REPLACEMENT MC SCH (08:21)
[2018-09-01] MEDS: bumetanide 0.25mg/ml 4ml vial IV SCH (09:55)
--- NOTE | 2018-09-01 18:16 | NUR ---
Problems reprioritized. Patient report given, questions answered & plan of care reviewed with MEHDI Agosto. Patient is currently resting in bed, bed locked and low, call light in reach. Patient stable at shift change.
--- NOTE | 2018-09-01 18:19 | NUR ---
Orientee documentation: I have reviewed and agree with all interventions, assessments performed and documented by Carolin HARDING. Orientee Medication Administration: For this medication-pass time frame, all medication were reviewed, dispensed, administered and documented per hospital policy by Carolin HARDING. Constructive criticism given as needed.
--- NOTE | 2018-09-01 18:21 | NUR ---
Patient in room PCU 3025. I have received report from Carolin HARDING and had the opportunity to ask questions and assume patient care.
[2018-09-01] MEDS: furosemide 20MG tablet PO SCH (20:28)
[2018-09-01] MEDS: metoprolol succinate 25mg (24-HOUR) SR. Tablet PO SCH (20:28)
[2018-09-02] MEDS: acetaminophen 325mg tablet PO PRN (02:53)
[2018-09-02 03:00] VITALS: BP 107/60
[2018-09-02] MEDS: ipratropium/albuterol 3ml nebule NEB SCH ×2 (03:06→07:36)
[2018-09-02 05:30] LABS: BASOPHILS # (AUTO) 0.1 X10'3 (0-0.2); BASOPHILS % (AUTO) 0.7 % (0-1); EOSINOPHILS # (AUTO) 0.3 X10'3 (0-0.9); EOSINOPHILS % (AUTO) 2.9 % (0-6); HEMATOCRIT 39.1 % (35.0-45.0); HEMOGLOBIN 13.2 g/dl (12.0-16.0); LYMPHOCYTES # (AUTO) 2.1 X10'3 (1.1-4.8); LYMPHOCYTES % (AUTO) 19.5 % (21-51); MEAN CORPUSCULAR HEMOGLOBIN 27.9 PG (27.0-31.0); MEAN CORPUSCULAR HGB CONC 33.7 g/dL (33.0-36.5); MEAN CORPUSCULAR VOLUME 82.8 FL (78-98); MEAN PLATELET VOLUME 8.3 FL (7.4-10.4); MONOCYTES # (AUTO) 1.1 X10'3 (0-0.9); MONOCYTES % (AUTO) 9.9 % (2-12); NEUTROPHILS # (AUTO) 7.3 X10'3 (1.8-7.7); PLATELET COUNT 237 X10'3 (140-440); RED BLOOD COUNT 4.72 X10'6 (4.20-5.60); RED CELL DISTRIBUTION WIDTH 16.9 % (11.5-14.5); WHITE BLOOD COUNT 10.9 X10'3 (4.5-11.0)
[2018-09-02 05:42] LABS: ALBUMIN 3.3 G/DL (3.4-5.0); ANION GAP 7 (8-16); BLOOD UREA NITROGEN 18 MG/DL (7-18); BUN/CREATININE RATIO 16.2 (6.6-38.0); CALCIUM 8.9 MG/DL (8.5-10.1); CHLORIDE 99 MMOL/L (99-107); CREATININE 1.11 MG/DL (0.40-0.90); GLUCOSE 116 MG/DL (70-104); MAGNESIUM 2.1 MG/DL (1.5-2.4); POTASSIUM 4.1 MMOL/L (3.5-5.1); SODIUM 137 MMOL/L (135-145); TOTAL CARBON DIOXIDE 30.7 MMOL/L (24-32); eGFR 50 ML/MIN
--- NOTE | 2018-09-02 06:01 | NUR ---
Problems reprioritized. Patient report given, questions answered & plan of care reviewed with Carolin HARDING.
[2018-09-02 06:53] VITALS: BP 123/61
[2018-09-02] MEDS: budesonide 0.5mg/2ml UD nebule IH SCH (07:35)
[2018-09-02] MEDS: pantoprazole 40mg Tablet.DR PO SCH (07:40)
[2018-09-02] MEDS: flecainide 50mg tablet PO SCH (07:41)
[2018-09-02] MEDS: calcium carbonate/vitamin D3 tablet PO SCH (07:41)
[2018-09-02] MEDS: magnesium oxide 400mg tablet PO SCH (07:42)
[2018-09-02] MEDS: furosemide 20MG tablet PO SCH (07:42)
[2018-09-02] MEDS: apixaban 5mg tablet PO SCH (07:42)
[2018-09-02] MEDS: K and/or MAG REPLACEMENT MC SCH (07:44)
[2018-09-02] MEDS ORDERED: potassium Cl 20 mEq SR tablet PO SCH (08:30)
--- NOTE | 2018-09-02 09:45 | NUR ---
IV became dislodged, okay per Dr George to keep IV out. Patient ambulated with minimal assistance 300feet around nurses station.
[2018-09-02] MEDS ORDERED: BUDE10.22 INH (10:37)
[2018-09-02] MEDS ORDERED: METO25TA6 PO (10:37)
[2018-09-02] MEDS ORDERED: TAM50T PO (10:37)
[2018-09-02] MEDS ORDERED: ALBU18HF2 IH (10:37)
[2018-09-02] MEDS ORDERED: FURO20TA4 PO (10:37)
--- NOTE | 2018-09-02 11:38 | NUR ---
Received orders to discharge patient to home. Belongings gathered, telemetry and IV removed, catheter tip intact, hemostasis achieved, ID band removed, patient in stable condition. Patient verbalized understanding of discharge instructions including new medications and will arrange a follow up appointment with her primary care doctor. Patient was wheeled to lobby by nurse's aid with friend/family in accompaniement. Patient stable at time of discharge.
== END 2018-09-02 11:30 | disposition home health service (06) | DRG 291 ==
LOC: ER 06:40 → SUR 3N 11:52 → INTOOBSV 12:33 → OBSVTOIN 12:33 → SUR 3N 12:33 → UNDOADMOB 12:33 → PCU 3S 08-31 15:09
PROVIDERS: ADMIT Hospitalist; ATTEND Hospitalist
DX: I11.0 Hypertensive heart disease with heart failure (principal); I50.31 Acute diastolic (congestive) heart failure; C34.91 Malignant neoplasm of unspecified part of right bronchus or lung; J96.11 Chronic respiratory failure with hypoxia; E66.01 Morbid (severe) obesity due to excess calories; I25.10 Atherosclerotic heart disease of native coronary artery without angina pectoris; I48.0 Paroxysmal atrial fibrillation; Z95.0 Presence of cardiac pacemaker; E78.00 Pure hypercholesterolemia, unspecified; E78.5 Hyperlipidemia, unspecified; F31.9 Bipolar disorder, unspecified; G89.29 Other chronic pain; I49.5 Sick sinus syndrome; F41.9 Anxiety disorder, unspecified; M54.9 Dorsalgia, unspecified; J43.9 Emphysema, unspecified; K21.9 Gastro-esophageal reflux disease without esophagitis; M81.0 Age-related osteoporosis without current pathological fracture; Z79.01 Long term (current) use of anticoagulants; Z82.5 Family history of asthma and other chronic lower respiratory diseases; Z83.3 Family history of diabetes mellitus; Z87.01 Personal history of pneumonia (recurrent); Z87.891 Personal history of nicotine dependence; Z99.81 Dependence on supplemental oxygen; Z88.5 Allergy status to narcotic agent; Z88.0 Allergy status to penicillin; Z88.2 Allergy status to sulfonamides; Z88.8 Allergy status to other drugs, medicaments and biological substances; Z79.899 Other long term (current) drug therapy; Z79.82 Long term (current) use of aspirin; Z98.891 History of uterine scar from previous surgery; Z68.37 Body mass index [BMI] 37.0-37.9, adult
CPT/HCPCS: 36415; 71045; 76937; 80048; 80053; 83735; 83880; 84484; 85025; 85379; 85610; 85730; 87070; 87081; 93005; 93306; 94640; 94760; 99285; G0378; J0282; J2405; J3490; J7626

== ENCOUNTER 2018-09-27 07:20 | Emergency (ER) | payer MEDICARE, MEDICAID ==
[~2018-09-27] VITALS: Ht 167.6 cm; Wt 100.0 kg
[~2018-09-27 07:20] MED LIST changes: +ALBU18HF2 IH; -ALBU18HF2 INH; -ALBU90AE INH; +ALEN70TA15 PEG; +APIX5TAB3 PO; -ASPI81TA52 PO; -AZIT250T PO; +BUDE10.22 INH; -FLUT1AER INH; +FURO20TA4 PO; -LEVO750T21 PO; +METO-411 PO; +METO25TA6 PO; -NITR0.4T SL; +PRED10TA PO; +TAM50T PO; -TIOT4MIS2 IH
[2018-09-27 08:27] LABS: BASOPHILS # (AUTO) 0.1 X10'3 (0-0.2); BASOPHILS % (AUTO) 0.4 % (0-1); EOSINOPHILS # (AUTO) 0.1 X10'3 (0-0.9); EOSINOPHILS % (AUTO) 0.7 % (0-6); LYMPHOCYTES # (AUTO) 1.1 X10'3 (1.1-4.8); LYMPHOCYTES % (AUTO) 6.6 % (21-51); MEAN CORPUSCULAR HGB CONC 33.3 g/dL (33.0-36.5); MEAN CORPUSCULAR VOLUME 84.1 FL (78-98); MEAN PLATELET VOLUME 7.8 FL (7.4-10.4); MONOCYTES # (AUTO) 0.8 X10'3 (0-0.9); MONOCYTES % (AUTO) 4.8 % (2-12); NEUTROPHILS # (AUTO) 14.4 X10'3 (1.8-7.7); NEUTROPHILS % (AUTO) 87.5 % (42-75); PLATELET COUNT 215 X10'3 (140-440); RED BLOOD COUNT 4.28 X10'6 (4.20-5.60); RED CELL DISTRIBUTION WIDTH 17.8 % (11.5-14.5); WHITE BLOOD COUNT 16.5 X10'3 (4.5-11.0)
[2018-09-27 08:37] LABS: ALANINE AMINOTRANSFERASE 26 U/L (12-78); ALBUMIN 3.1 G/DL (3.4-5.0); ALKALINE PHOSPHATASE 65 IU/L (46-116); ANION GAP 7 (8-16); ASPARTATE AMINO TRANSFERASE 13 U/L (10-37); BILIRUBIN,TOTAL 0.4 MG/DL (0.1-1.0); BLOOD UREA NITROGEN 22 MG/DL (7-18); BUN/CREATININE RATIO 22.4 (6.6-38.0); CALCIUM 8.7 MG/DL (8.5-10.1); CHLORIDE 103 MMOL/L (99-107); CREATININE 0.98 MG/DL (0.40-0.90); GLUCOSE 131 MG/DL (70-104); POTASSIUM 4.3 MMOL/L (3.5-5.1); SODIUM 139 MMOL/L (135-145); TOTAL CARBON DIOXIDE 28.7 MMOL/L (24-32); TOTAL PROTEIN 6.2 G/DL (6.4-8.2); eGFR 58 ML/MIN
[2018-09-27 08:48] LABS: PARTIAL THROMBOPLASTIN TIME 29 SECONDS (22-32)
[2018-09-27] MEDS ORDERED: levoFLOXACIN 750MG TABLET PO ONE (09:30)
[2018-09-27] MEDS ORDERED: ipratropium/albuterol 3ml nebule NEB ONE (09:30)
[2018-09-27] MEDS ORDERED: LEVO500T2 PO (09:30)
[2018-09-27 10:30] VITALS: BP 136/85
== END 2018-09-27 10:31 | disposition home or self-care (01) ==
LOC: ER 07:20
DX: R06.02 Shortness of breath (principal); R19.7 Diarrhea, unspecified; E78.00 Pure hypercholesterolemia, unspecified; I10 Essential (primary) hypertension; J44.9 Chronic obstructive pulmonary disease, unspecified; K21.9 Gastro-esophageal reflux disease without esophagitis; G89.29 Other chronic pain; F41.9 Anxiety disorder, unspecified; F32.9 Major depressive disorder, single episode, unspecified; C34.90 Malignant neoplasm of unspecified part of unspecified bronchus or lung; Z88.0 Allergy status to penicillin; Z88.6 Allergy status to analgesic agent; Z88.8 Allergy status to other drugs, medicaments and biological substances; Z88.2 Allergy status to sulfonamides; Z88.1 Allergy status to other antibiotic agents; Z79.899 Other long term (current) drug therapy; Z79.2 Long term (current) use of antibiotics; Z87.09 Personal history of other diseases of the respiratory system; Z87.01 Personal history of pneumonia (recurrent); Z86.79 Personal history of other diseases of the circulatory system; Z98.890 Other specified postprocedural states; Z56.0 Unemployment, unspecified
CPT/HCPCS: 36415; 71045; 80053; 85025; 85610; 85730; 93005; 94640; 94760; 99284

== ENCOUNTER 2018-10-22 21:09 | Emergency (ER) | payer MEDICARE, MEDICAID ==
[~2018-10-22] VITALS: Ht 167.6 cm; Wt 100.0 kg
[2018-10-22] MEDS ORDERED: ipratropium/albuterol 3ml nebule NEB ONE (21:20)
[2018-10-22] MEDS ORDERED: methylPREDNISolone sod succ 125mg/2ml vial IV ONE (21:25)
--- NOTE | 2018-10-22 21:28 | NUR ---
pt receving breathing treatment .pt sitting up in bed .co sob,grand daughter at bedside,dr aguirre came by to see pt .
[2018-10-22 21:42] LABS: BASOPHILS # (AUTO) 0.1 X10'3 (0-0.2); BASOPHILS % (AUTO) 1.3 % (0-1); EOSINOPHILS # (AUTO) 0.1 X10'3 (0-0.9); EOSINOPHILS % (AUTO) 0.8 % (0-6); HEMATOCRIT 37.5 % (35.0-45.0); HEMOGLOBIN 12.4 g/dl (12.0-16.0); LYMPHOCYTES # (AUTO) 1.3 X10'3 (1.1-4.8); LYMPHOCYTES % (AUTO) 13.8 % (21-51); MEAN CORPUSCULAR HEMOGLOBIN 28.4 PG (27.0-31.0); MEAN CORPUSCULAR HGB CONC 33.2 g/dL (33.0-36.5); MEAN CORPUSCULAR VOLUME 85.4 FL (78-98); MONOCYTES % (AUTO) 11.4 % (2-12); NEUTROPHILS # (AUTO) 6.6 X10'3 (1.8-7.7); NEUTROPHILS % (AUTO) 72.7 % (42-75); PLATELET COUNT 271 X10'3 (140-440); RED BLOOD COUNT 4.39 X10'6 (4.20-5.60); RED CELL DISTRIBUTION WIDTH 17.9 % (11.5-14.5); WHITE BLOOD COUNT 9.1 X10'3 (4.5-11.0)
[2018-10-22 21:54] LABS: PARTIAL THROMBOPLASTIN TIME 26 SECONDS (22-32)
[2018-10-22 21:56] LABS: ALANINE AMINOTRANSFERASE 19 U/L (12-78); ALBUMIN 3.2 G/DL (3.4-5.0); ALKALINE PHOSPHATASE 82 IU/L (46-116); ANION GAP 7 (8-16); ASPARTATE AMINO TRANSFERASE 10 U/L (10-37); BILIRUBIN,TOTAL 0.2 MG/DL (0.1-1.0); BLOOD UREA NITROGEN 20 MG/DL (7-18); BUN/CREATININE RATIO 21.3 (6.6-38.0); CALCIUM 8.1 MG/DL (8.5-10.1); CHLORIDE 105 MMOL/L (99-107); CREATININE 0.94 MG/DL (0.40-0.90); SODIUM 141 MMOL/L (135-145); TOTAL CARBON DIOXIDE 28.8 MMOL/L (24-32); TOTAL PROTEIN 6.4 G/DL (6.4-8.2); eGFR 61 ML/MIN
[2018-10-22 21:59] LABS: GLUCOSE 112 MG/DL (70-104); POTASSIUM 4.3 MMOL/L (3.5-5.1)
[2018-10-22] MEDS ORDERED: levoFLOXACIN-Levaquin 750MG/D5 150 ML IV ONE (22:05)
--- NOTE | 2018-10-22 22:37 | NUR ---
DR PIPER AT BEDSIDE PT SPO2 FLUCTUATING IN BTW 88-94 NOW 94 ON 3.5 L OF O2.
[2018-10-22] MEDS ORDERED: PRED20TA PO (22:56)
[2018-10-22] MEDS ORDERED: LEVO750T21 PO (22:56)
[2018-10-22 23:55] VITALS: BP 145/85
== END 2018-10-23 00:01 | disposition home or self-care (01) ==
LOC: ER 21:10
DX: J44.1 Chronic obstructive pulmonary disease with (acute) exacerbation (principal); E78.00 Pure hypercholesterolemia, unspecified; I10 Essential (primary) hypertension; K21.9 Gastro-esophageal reflux disease without esophagitis; G89.29 Other chronic pain; Z56.0 Unemployment, unspecified; Z98.890 Other specified postprocedural states; Z85.118 Personal history of other malignant neoplasm of bronchus and lung; Z88.0 Allergy status to penicillin; Z88.5 Allergy status to narcotic agent; Z88.2 Allergy status to sulfonamides; Z88.1 Allergy status to other antibiotic agents; Z79.899 Other long term (current) drug therapy; Z88.3 Allergy status to other anti-infective agents; Z99.81 Dependence on supplemental oxygen; Z87.01 Personal history of pneumonia (recurrent)
CPT/HCPCS: 36415; 71045; 80053; 83880; 84484; 85025; 85610; 85730; 93005; 94640; 94760; 96365; 96366; 96375; 99284; J1956; J2930

== ENCOUNTER 2018-10-27 16:16 | Emergency (ER) | payer MEDICARE, MEDICAID ==
[~2018-10-27] VITALS: Ht 167.6 cm; Wt 103.2 kg
[~2018-10-27 16:16] MED LIST changes: +LEVO750T21 PO; +PRED20TA PO
[2018-10-27 16:55] LABS: BASOPHILS % (AUTO) 0.4 % (0-1); EOSINOPHILS % (AUTO) 0.1 % (0-6); HEMATOCRIT 40.1 % (35.0-45.0); HEMOGLOBIN 13.1 g/dl (12.0-16.0); LYMPHOCYTES # (AUTO) 0.9 X10'3 (1.1-4.8); LYMPHOCYTES % (AUTO) 9.8 % (21-51); MEAN CORPUSCULAR HEMOGLOBIN 27.9 PG (27.0-31.0); MEAN CORPUSCULAR HGB CONC 32.7 g/dL (33.0-36.5); MEAN CORPUSCULAR VOLUME 85.4 FL (78-98); MEAN PLATELET VOLUME 7.8 FL (7.4-10.4); MONOCYTES # (AUTO) 0.8 X10'3 (0-0.9); MONOCYTES % (AUTO) 8.4 % (2-12); NEUTROPHILS # (AUTO) 7.7 X10'3 (1.8-7.7); NEUTROPHILS % (AUTO) 81.3 % (42-75); PLATELET COUNT 274 X10'3 (140-440); RED BLOOD COUNT 4.69 X10'6 (4.20-5.60); RED CELL DISTRIBUTION WIDTH 18.3 % (11.5-14.5); WHITE BLOOD COUNT 9.4 X10'3 (4.5-11.0)
[2018-10-27 17:12] LABS: ALANINE AMINOTRANSFERASE 26 U/L (12-78); ALBUMIN 3.2 G/DL (3.4-5.0); ALKALINE PHOSPHATASE 69 IU/L (46-116); ANION GAP 9 (8-16); ASPARTATE AMINO TRANSFERASE 10 U/L (10-37); BILIRUBIN,TOTAL 0.2 MG/DL (0.1-1.0); BLOOD UREA NITROGEN 19 MG/DL (7-18); BUN/CREATININE RATIO 22.4 (6.6-38.0); CALCIUM 8.8 MG/DL (8.5-10.1); CHLORIDE 105 MMOL/L (99-107); CREATININE 0.85 MG/DL (0.40-0.90); GLUCOSE 126 MG/DL (70-104); POTASSIUM 4.3 MMOL/L (3.5-5.1); SODIUM 142 MMOL/L (135-145); TOTAL CARBON DIOXIDE 28.3 MMOL/L (24-32); TOTAL PROTEIN 6.5 G/DL (6.4-8.2); eGFR 68 ML/MIN
[2018-10-27 17:18] LABS: PARTIAL THROMBOPLASTIN TIME 26 SECONDS (22-32)
[2018-10-27] MEDS ORDERED: albuterol 2.5 MG/3 ML nebule NEB ONE (19:40)
[2018-10-27] MEDS ORDERED: ATOR80TA PO (20:01)
[2018-10-27] MEDS ORDERED: NIFE30TA88 PO (20:01)
[2018-10-27] MEDS ORDERED: CHLO25TA2 PO (20:01)
[2018-10-27] MEDS ORDERED: NIFE60TA69 PO (20:01)
[2018-10-27] MEDS ORDERED: FAMO20TA8 PO (20:01)
[2018-10-27] MEDS ORDERED: ASPI-1265 PO (20:01)
[2018-10-27] MEDS ORDERED: METO100T7 PO (20:01)
[2018-10-27] MEDS ORDERED: FEXO-124 PO (20:01)
[2018-10-27] MEDS ORDERED: FLUT1DIS4 INH (20:01)
[2018-10-27] MEDS ORDERED: LOSA25TA96 PO (20:01)
[2018-10-27] MEDS ORDERED: METF500T PO (20:01)
[2018-10-27 20:40] VITALS: BP 129/79
[2018-10-28] MEDS ORDERED: FLEC100T PO (15:26)
[2018-10-28] MEDS ORDERED: FURO80TA87 PO (15:26)
[2018-10-28] MEDS ORDERED: FURO-150 PO (15:27)
[2018-10-28] MEDS ORDERED: LEVO750T46 PO (15:28)
[2018-10-28] MEDS ORDERED: METO100T14 PO (15:29)
[2018-10-28] MEDS ORDERED: ALBU2.5V13 NEB (15:34)
[2018-10-28] MEDS ORDERED: POTA8TAB8 PO (15:34)
[2018-10-28] MEDS ORDERED: FLUT1BLS4 IH (15:34)
== END 2018-10-27 22:01 | disposition home or self-care (01) ==
LOC: ER 16:16
DX: R06.02 Shortness of breath (principal); R60.0 Localized edema; E78.00 Pure hypercholesterolemia, unspecified; J43.9 Emphysema, unspecified; K21.9 Gastro-esophageal reflux disease without esophagitis; G89.29 Other chronic pain; M81.0 Age-related osteoporosis without current pathological fracture; C34.90 Malignant neoplasm of unspecified part of unspecified bronchus or lung; F41.9 Anxiety disorder, unspecified; F31.9 Bipolar disorder, unspecified; Z98.890 Other specified postprocedural states; Z56.0 Unemployment, unspecified; Z88.0 Allergy status to penicillin; Z88.6 Allergy status to analgesic agent; Z88.2 Allergy status to sulfonamides; Z88.8 Allergy status to other drugs, medicaments and biological substances; Z79.899 Other long term (current) drug therapy; Z79.82 Long term (current) use of aspirin
CPT/HCPCS: 36415; 71045; 80053; 84484; 85025; 85610; 85730; 93005; 93971; 94640; 94760; 99284

== ENCOUNTER 2018-10-28 12:14 | Inpatient (IN) | payer MEDICARE, MEDICAID ==
[~2018-10-28] VITALS: Ht 167.6 cm; Wt 108.0 kg
[2018-10-28] MEDS ORDERED: diltiazem 5mg/ml 5ml inj. IV ONE (12:30)
--- NOTE | 2018-10-28 12:46 | NUR ---
DOC WOULD LIKE THE PACER INTERROGATED, SHE HAS A ST [facility] MEDICAL PACEMAKER IN PLACE, MANAGED BY DR GARRETT AT [facility]. APPARENTLY THEY HAVE A NUMBER FOR THE TECH WHO CAN COME AND INTERROGATE IT, HOWEVER THEIR OFFICE IS CLOSED FOR LUNCH UNTIL 1PM, SO I WILL CALL THEM BACK AFTER 1.
[2018-10-28 13:21] LABS: BASOPHILS % (AUTO) 0.2 % (0-1); EOSINOPHILS % (AUTO) 0 % (0-6); HEMATOCRIT 43.1 % (35.0-45.0); HEMOGLOBIN 13.8 g/dl (12.0-16.0); LYMPHOCYTES # (AUTO) 0.6 X10'3 (1.1-4.8); LYMPHOCYTES % (AUTO) 4.9 % (21-51); MEAN CORPUSCULAR HEMOGLOBIN 27.5 PG (27.0-31.0); MEAN CORPUSCULAR VOLUME 85.7 FL (78-98); MEAN PLATELET VOLUME 8.1 FL (7.4-10.4); MONOCYTES # (AUTO) 0.5 X10'3 (0-0.9); MONOCYTES % (AUTO) 4.1 % (2-12); NEUTROPHILS % (AUTO) 90.8 % (42-75); PLATELET COUNT 292 X10'3 (140-440); RED BLOOD COUNT 5.03 X10'6 (4.20-5.60); RED CELL DISTRIBUTION WIDTH 18.1 % (11.5-14.5); WHITE BLOOD COUNT 12.1 X10'3 (4.5-11.0)
[2018-10-28 13:30] LABS: ALANINE AMINOTRANSFERASE 28 U/L (12-78); ALBUMIN 3.2 G/DL (3.4-5.0); ALKALINE PHOSPHATASE 67 IU/L (46-116); ANION GAP 7 (8-16); ASPARTATE AMINO TRANSFERASE 14 U/L (10-37); BILIRUBIN,TOTAL 0.3 MG/DL (0.1-1.0); BLOOD UREA NITROGEN 24 MG/DL (7-18); BUN/CREATININE RATIO 21.4 (6.6-38.0); CALCIUM 8.6 MG/DL (8.5-10.1); CHLORIDE 105 MMOL/L (99-107); CREATININE 1.12 MG/DL (0.40-0.90); GLUCOSE 202 MG/DL (70-104); POTASSIUM 4.3 MMOL/L (3.5-5.1); SODIUM 142 MMOL/L (135-145); TOTAL CARBON DIOXIDE 30.1 MMOL/L (24-32); TOTAL PROTEIN 6.5 G/DL (6.4-8.2); eGFR 50 ML/MIN
--- NOTE | 2018-10-28 13:59 | NUR ---
INTERROGATED PT ST TORY PACEMAKER, BEING TRANSMITTED NOW, PLACED COMMODE AT BEDSIDE PER PT REQUEST, PT MOVES ADLIB, ABLE TO STAND ADN TRANSFER TO COMMODE UNASSISTED.
[2018-10-28] MEDS ORDERED: furosemide 10 MG/1 ML 10ml inj IV ONE (14:15)
[2018-10-28] MEDS ORDERED: ondansetron/PF 4mg/2ml inj IV PRN (14:25)
[2018-10-28] MEDS ORDERED: mag hydrox/Alum hydrox/simeth 30ml oral suspension PO PRN (14:25)
[2018-10-28] MEDS ORDERED: acetaminophen 325mg tablet PO PRN (14:25)
[2018-10-28] MEDS ORDERED: magnesium hydroxide 30ml (MOM) UD suspension PO PRN (14:25)
[2018-10-28] MEDS ORDERED: HYDROcodone/acetaminophen 5mg/325mg tablet PO PRN (14:25)
[2018-10-28] MEDS ORDERED: FLEC100T PO (15:26)
[2018-10-28] MEDS ORDERED: FURO80TA87 PO (15:26)
[2018-10-28] MEDS ORDERED: FURO-150 PO (15:27)
[2018-10-28] MEDS ORDERED: LEVO750T46 PO (15:28)
[2018-10-28] MEDS ORDERED: METO100T14 PO (15:29)
[2018-10-28 15:30] VITALS: BP 113/56
--- NOTE | 2018-10-28 15:30 | NUR ---
Patient in room PCU 3028. I have received report from Shmuel and had the opportunity to ask questions and assume patient care. Patient arrived on Unit in stable condition. Telemetry applied. Sp02 90% on 2.5 liters via NC.
[2018-10-28] MEDS ORDERED: ALBU2.5V13 NEB (15:34)
[2018-10-28] MEDS ORDERED: FLUT1BLS4 IH (15:34)
[2018-10-28] MEDS ORDERED: POTA8TAB8 PO (15:34)
[2018-10-28 18:00] VITALS: BP 94/57
[2018-10-28] MEDS ORDERED: non-formulary drug (Albuterol Sulfate (Ventolin Hfa) 2 PUFFS) IH PRN (18:15)
[2018-10-28] MEDS ORDERED: albuterol 2.5 MG/3 ML nebule NEB PRN (18:20)
--- NOTE | 2018-10-28 18:40 | NUR ---
Problems reprioritized. Patient report given, questions answered & plan of care reviewed with MEHDI Alegre. Patient currently resting in bed, on 2L NC, bed locked and low, call light in reach, stable at shift change
--- NOTE | 2018-10-28 18:40 | NUR ---
Orientee documentation: I have reviewed and agree with all interventions, assessments performed and documented by MEHDI Hayes.
--- NOTE | 2018-10-28 18:40 | NUR ---
Patient in room PCU 3028B. I have received report from MEHDI Coe and had the opportunity to ask questions and assume patient care. Pt is alert and oriented X4, denies CP, n/v, pain rated 0/10. Will continue to monitor
[2018-10-28] MEDS ORDERED: non-formulary drug (Flecainide Acetate 1 TAB) PO SCH (20:00)
[2018-10-28] MEDS ORDERED: non-formulary drug (Metoprolol Tartrate 1 TAB) PO SCH (20:00)
[2018-10-28] MEDS: furosemide 40mg/4ml inj IV SCH (20:36)
[2018-10-28] MEDS: flecainide 50mg tablet PO SCH (20:36)
[2018-10-28] MEDS: metoprolol tartrate 50mg tablet PO SCH (20:38)
[2018-10-28] MEDS: apixaban 5mg tablet PO SCH (20:38)
[2018-10-28 22:00] VITALS: BP 114/46
--- NOTE | 2018-10-28 23:10 | NUR ---
Patient refused to have field PIV removed. Will attempt again tomorrow morning Addendum: 10/29/18 at 0549 by Codey Blas RN Pt is a hard stick. Two other RN's tried to draw blood for the troponin and lab to no avail. Called lab to draw blood. Troponin <0.04>
[2018-10-29] MEDS: acetaminophen 325mg tablet PO PRN ×2 (01:22→11:46)
[2018-10-29 02:00] VITALS: BP 123/63
[2018-10-29 04:51] LABS: BASOPHILS % (AUTO) 0.2 % (0-1); EOSINOPHILS # (AUTO) 0.1 X10'3 (0-0.9); EOSINOPHILS % (AUTO) 0.7 % (0-6); HEMATOCRIT 41.3 % (35.0-45.0); HEMOGLOBIN 13.6 g/dl (12.0-16.0); LYMPHOCYTES # (AUTO) 1.2 X10'3 (1.1-4.8); LYMPHOCYTES % (AUTO) 11.1 % (21-51); MEAN CORPUSCULAR HGB CONC 32.9 g/dL (33.0-36.5); MEAN CORPUSCULAR VOLUME 85.1 FL (78-98); MONOCYTES # (AUTO) 1.1 X10'3 (0-0.9); MONOCYTES % (AUTO) 10.6 % (2-12); NEUTROPHILS # (AUTO) 8.3 X10'3 (1.8-7.7); NEUTROPHILS % (AUTO) 77.4 % (42-75); PLATELET COUNT 219 X10'3 (140-440); RED BLOOD COUNT 4.85 X10'6 (4.20-5.60); WHITE BLOOD COUNT 10.7 X10'3 (4.5-11.0)
[2018-10-29] MEDS: albuterol 2.5 MG/3 ML nebule NEB PRN ×4 (05:01→19:44)
[2018-10-29 05:06] LABS: HEMOGLOBIN A1C 5.9 % (4.5-6.2)
[2018-10-29 05:12] LABS: ALBUMIN 3.2 G/DL (3.4-5.0); ANION GAP 8 (8-16); BLOOD UREA NITROGEN 25 MG/DL (7-18); BUN/CREATININE RATIO 21.2 (6.6-38.0); CALCIUM 8.8 MG/DL (8.5-10.1); CHLORIDE 102 MMOL/L (99-107); CREATININE 1.18 MG/DL (0.40-0.90); GLUCOSE 100 MG/DL (70-104); POTASSIUM 3.6 MMOL/L (3.5-5.1); SODIUM 141 MMOL/L (135-145); TOTAL CARBON DIOXIDE 30.6 MMOL/L (24-32); TROPONIN I < 0.04 NG/ML (0.0-0.05); eGFR 47 ML/MIN
[2018-10-29 06:00] VITALS: BP 107/56
--- NOTE | 2018-10-29 06:00 | NUR ---
Received report from Codey. RN Pt is asleep, NAD
--- NOTE | 2018-10-29 06:00 | NUR ---
Received report from MEHDI Alegre pt is in bed asleep in NAD
--- NOTE | 2018-10-29 06:30 | NUR ---
Problems reprioritized. Patient report given, questions answered & plan of care reviewed with MEHDI Mitchell. Pt stable at shift change
[2018-10-29] MEDS ORDERED: CALCIUM CARBONATE PO SCH (08:00)
[2018-10-29] MEDS ORDERED: enoxaparin 40mg/0.4ml syringe SUBCUT SCH (08:00)
[2018-10-29] MEDS: TRELEGY ELLIPTA IH SCH (08:00)
[2018-10-29] MEDS ORDERED: non-formulary drug (Magnesium Oxide (Magnesium) 250 MG) PO SCH (08:00)
[2018-10-29] MEDS ORDERED: VITAMIN D3 PO SCH (08:00)
[2018-10-29] MEDS ORDERED: non-formulary drug (Pantoprazole Sodium (Protonix) 1 TAB) PO SCH (08:00)
[2018-10-29] MEDS ORDERED: non-formulary drug (Fluticasone/Umeclidin/Vilanter (Trelegy Ellipta 100-62.5-25) 1 PUFF) IH SCH (08:00)
[2018-10-29] MEDS: magnesium oxide 400mg tablet PO SCH (08:48)
[2018-10-29] MEDS: furosemide 40mg/4ml inj IV SCH ×2 (08:49→19:42)
[2018-10-29] MEDS: calcium carbonate/vitamin D3 tablet PO SCH (08:49)
[2018-10-29] MEDS: potassium chloride 8mEq ER tablet PO SCH (08:50)
[2018-10-29] MEDS: flecainide 50mg tablet PO SCH ×2 (08:50→19:42)
[2018-10-29] MEDS: metoprolol tartrate 50mg tablet PO SCH ×2 (08:50→19:42)
[2018-10-29] MEDS: apixaban 5mg tablet PO SCH ×2 (08:54→19:39)
[2018-10-29 11:00] VITALS: BP 108/66
[2018-10-29] MEDS: pantoprazole 40mg Tablet.DR PO SCH (11:42)
[2018-10-29] MEDS: prednisone 10mg tablet PO SCH (11:42)
--- NOTE | 2018-10-29 14:55 | NUR ---
Report phoned to MEHDI Aguilar on ACCE. Pt will be transported to rm 3017
[2018-10-29 15:00] VITALS: BP 113/73
[2018-10-29 18:00] VITALS: BP 110/61
--- NOTE | 2018-10-29 18:26 | NUR ---
Problems reprioritized. Patient report given, questions answered & plan of care reviewed with MEHDI Crisostomo and MEHDI Valero.
--- NOTE | 2018-10-29 18:39 | NUR ---
RECEIVED REPORT FROM CHIKIS HARDING
[2018-10-29 22:00] VITALS: BP 118/70
[2018-10-30 02:00] VITALS: BP 123/78
[2018-10-30] MEDS: acetaminophen 325mg tablet PO PRN ×2 (02:09→11:38)
[2018-10-30 06:00] VITALS: BP 121/74
--- NOTE | 2018-10-30 06:00 | NUR ---
Problems reprioritized. Patient report given, questions answered & plan of care reviewed with MEHDI Contreras.
--- NOTE | 2018-10-30 06:00 | NUR ---
Reviewed and agreed with MEHDI Valero's chart
[2018-10-30 06:33] LABS: BASOPHILS % (AUTO) 0.3 % (0-1); EOSINOPHILS # (AUTO) 0.1 X10'3 (0-0.9); EOSINOPHILS % (AUTO) 0.6 % (0-6); HEMATOCRIT 40.2 % (35.0-45.0); HEMOGLOBIN 13.3 g/dl (12.0-16.0); LYMPHOCYTES % (AUTO) 11.4 % (21-51); MEAN CORPUSCULAR HEMOGLOBIN 27.9 PG (27.0-31.0); MEAN CORPUSCULAR VOLUME 84.3 FL (78-98); MONOCYTES # (AUTO) 0.9 X10'3 (0-0.9); MONOCYTES % (AUTO) 10.3 % (2-12); NEUTROPHILS # (AUTO) 6.6 X10'3 (1.8-7.7); NEUTROPHILS % (AUTO) 77.4 % (42-75); PLATELET COUNT 229 X10'3 (140-440); RED BLOOD COUNT 4.77 X10'6 (4.20-5.60); WHITE BLOOD COUNT 8.6 X10'3 (4.5-11.0)
[2018-10-30 06:41] LABS: ALBUMIN 3.2 G/DL (3.4-5.0); ANION GAP 6 (8-16); BLOOD UREA NITROGEN 26 MG/DL (7-18); BUN/CREATININE RATIO 26.3 (6.6-38.0); CALCIUM 8.8 MG/DL (8.5-10.1); CHLORIDE 102 MMOL/L (99-107); CREATININE 0.99 MG/DL (0.40-0.90); GLUCOSE 105 MG/DL (70-104); POTASSIUM 3.6 MMOL/L (3.5-5.1); SODIUM 142 MMOL/L (135-145); TOTAL CARBON DIOXIDE 33.8 MMOL/L (24-32); eGFR 57 ML/MIN
--- NOTE | 2018-10-30 06:55 | NUR ---
Patient in room MED 313. I have received report from MEHDI Crisostomo and had the opportunity to ask questions and assume patient care.
[2018-10-30] MEDS: TRELEGY ELLIPTA IH SCH (08:00)
[2018-10-30] MEDS: flecainide 50mg tablet PO SCH (08:10)
[2018-10-30] MEDS: pantoprazole 40mg Tablet.DR PO SCH (08:10)
[2018-10-30] MEDS: apixaban 5mg tablet PO SCH (08:13)
[2018-10-30] MEDS: calcium carbonate/vitamin D3 tablet PO SCH (08:13)
[2018-10-30] MEDS: potassium chloride 8mEq ER tablet PO SCH (08:13)
[2018-10-30] MEDS: metoprolol tartrate 50mg tablet PO SCH (08:13)
[2018-10-30] MEDS: magnesium oxide 400mg tablet PO SCH (08:15)
[2018-10-30] MEDS: prednisone 10mg tablet PO SCH (08:15)
[2018-10-30] MEDS: furosemide 40mg/4ml inj IV SCH (08:15)
[2018-10-30] MEDS ORDERED: prednisone 10mg tablet PO SCH (08:30)
[2018-10-30] MEDS: albuterol 2.5 MG/3 ML nebule NEB PRN (08:57)
[2018-10-30 11:00] VITALS: BP 129/76
[2018-10-30] MEDS ORDERED: POTA8TAB8 PO (11:36)
--- NOTE | 2018-10-30 13:05 | NUR ---
Orientee documention and medication administration: I have reviewed and agree with all interventions, assessments performed and documented by Bridgett HARDING.
--- NOTE | 2018-10-30 13:28 | NUR ---
pt. discharged at 1305 from facility. pt. was wheeled down by staff to meet a friend who was driving her home. pt. received discharge paperwork, it was understood and signed. IV was d/c and intact. pt. left with all her belongings. no new medications were ordered, the dose was just changed. pt. stated that she did not need a new order phoned in for her.
== END 2018-10-30 13:10 | disposition home health service (06) | DRG 291 ==
LOC: ER 12:14 → PCU 3S 15:50 → CMPBEDREQ 19:04 → MED 3N 10-29 15:10
PROVIDERS: ADMIT Internal Medicine; ATTEND Internal Medicine
DX: I11.0 Hypertensive heart disease with heart failure (principal); J96.21 Acute and chronic respiratory failure with hypoxia; C34.90 Malignant neoplasm of unspecified part of unspecified bronchus or lung; I50.813 Acute on chronic right heart failure; E78.00 Pure hypercholesterolemia, unspecified; I48.0 Paroxysmal atrial fibrillation; J43.9 Emphysema, unspecified; I27.81 Cor pulmonale (chronic); K21.9 Gastro-esophageal reflux disease without esophagitis; M81.0 Age-related osteoporosis without current pathological fracture; F31.9 Bipolar disorder, unspecified; F41.9 Anxiety disorder, unspecified; G89.29 Other chronic pain; M54.9 Dorsalgia, unspecified; Z98.891 History of uterine scar from previous surgery; Z95.0 Presence of cardiac pacemaker; Z79.01 Long term (current) use of anticoagulants; Z88.0 Allergy status to penicillin; Z88.2 Allergy status to sulfonamides; Z88.8 Allergy status to other drugs, medicaments and biological substances; Z88.6 Allergy status to analgesic agent; Z88.1 Allergy status to other antibiotic agents; Z91.041 Radiographic dye allergy status; Z79.899 Other long term (current) drug therapy; Z79.52 Long term (current) use of systemic steroids; Z87.891 Personal history of nicotine dependence; Z92.3 Personal history of irradiation; Z56.0 Unemployment, unspecified; Z83.3 Family history of diabetes mellitus; Z84.1 Family history of disorders of kidney and ureter; Z82.5 Family history of asthma and other chronic lower respiratory diseases
CPT/HCPCS: 36415; 71045; 80048; 80053; 83036; 83880; 84484; 85025; 85610; 85730; 87081; 93005; 93971; 94640; 94760; 96374; 96375; 99284; 99285; G0378; J1940; J3490; J7512

== ENCOUNTER 2018-11-06 22:07 | Inpatient (IN) | payer MEDICARE, MEDICAID ==
[~2018-11-06] VITALS: Ht 170.2 cm; Wt 86.4 kg
[~2018-11-06 22:07] MED LIST changes: +ALBU2.5V13 NEB; +FLEC100T PO; +FLUT1BLS4 IH; +FURO-150 PO; +FURO80TA87 PO; +LEVO750T46 PO; +METO100T14 PO; +POTA8TAB8 PO
[2018-11-06 22:42] LABS: BASOPHILS % (AUTO) 0.2 % (0-1); EOSINOPHILS # (AUTO) 0.1 X10'3 (0-0.9); EOSINOPHILS % (AUTO) 0.5 % (0-6); HEMATOCRIT 41.1 % (35.0-45.0); HEMOGLOBIN 13.3 g/dl (12.0-16.0); LYMPHOCYTES # (AUTO) 0.8 X10'3 (1.1-4.8); LYMPHOCYTES % (AUTO) 4.9 % (21-51); MEAN CORPUSCULAR HEMOGLOBIN 27.7 PG (27.0-31.0); MEAN CORPUSCULAR HGB CONC 32.3 g/dL (33.0-36.5); MEAN CORPUSCULAR VOLUME 85.6 FL (78-98); MEAN PLATELET VOLUME 8.2 FL (7.4-10.4); MONOCYTES # (AUTO) 0.5 X10'3 (0-0.9); MONOCYTES % (AUTO) 3.3 % (2-12); NEUTROPHILS # (AUTO) 14.4 X10'3 (1.8-7.7); NEUTROPHILS % (AUTO) 91.1 % (42-75); PLATELET COUNT 264 X10'3 (140-440); WHITE BLOOD COUNT 15.8 X10'3 (4.5-11.0)
[2018-11-06 22:48] LABS: PARTIAL THROMBOPLASTIN TIME 26 SECONDS (22-32)
[2018-11-06 22:51] LABS: ALANINE AMINOTRANSFERASE 35 U/L (12-78); ALBUMIN 3.3 G/DL (3.4-5.0); ALKALINE PHOSPHATASE 76 IU/L (46-116); ANION GAP 8 (8-16); ASPARTATE AMINO TRANSFERASE 17 U/L (10-37); BILIRUBIN,TOTAL 0.3 MG/DL (0.1-1.0); BLOOD UREA NITROGEN 22 MG/DL (7-18); BUN/CREATININE RATIO 23.7 (6.6-38.0); CALCIUM 8.5 MG/DL (8.5-10.1); CHLORIDE 105 MMOL/L (99-107); CREATININE 0.93 MG/DL (0.40-0.90); GLUCOSE 100 MG/DL (70-104); POTASSIUM 3.8 MMOL/L (3.5-5.1); SODIUM 144 MMOL/L (135-145); TOTAL CARBON DIOXIDE 31.4 MMOL/L (24-32); TOTAL PROTEIN 6.6 G/DL (6.4-8.2); eGFR 61 ML/MIN
[2018-11-06] MEDS ORDERED: flecainide 50mg tablet PO STA ×2 (22:56→23:49)
[2018-11-06] MEDS ORDERED: magnesium 2GM in 50ml NS 50 ML IV ONE (23:00)
[2018-11-06] MEDS ORDERED: acetaminophen 325mg tablet PO ONE (23:00)
[2018-11-06] MEDS ORDERED: ondansetron/PF 4mg/2ml inj IV ONE (23:00)
[2018-11-06] MEDS ORDERED: LORazepam 2 mg/ml vial IV ONE (23:25)
[2018-11-06] MEDS ORDERED: diltiazem 5mg/ml 5ml inj. IV ONE (23:30)
[2018-11-07] VITALS (9 sets, daily range): BP systolic 99–136; BP diastolic 49–83
[2018-11-07] MEDS ORDERED: magnesium 2GM in 50ml NS 50 ML IV PRN (00:10)
[2018-11-07] MEDS ORDERED: magnesium Cl slow-release 64mg tablet PO PRN (00:10)
[2018-11-07] MEDS ORDERED: potassium CL 10mEq/100ml bag 100 ML IV PRN ×2 (00:10)
[2018-11-07] MEDS ORDERED: ondansetron/PF 4mg/2ml inj IV PRN (00:10)
[2018-11-07] MEDS ORDERED: potassium Cl 20 mEq SR tablet PO PRN ×2 (00:10)
[2018-11-07] MEDS ORDERED: magnesium 4gm in 100ml NS 100 ML IV PRN (00:10)
[2018-11-07] MEDS ORDERED: HYDROcodone/acetaminophen 5mg/325mg tablet PO PRN (00:10)
[2018-11-07] MEDS ORDERED: acetaminophen 325mg tablet PO PRN ×2 (00:10→19:55)
[2018-11-07 00:18] LABS: MAGNESIUM 2.2 MG/DL (1.5-2.4)
[2018-11-07] MEDS ORDERED: diltiazem 5mg/ml 5ml inj. IV ONE ×3 (00:50→02:10)
[2018-11-07] MEDS ORDERED: diltiazem-D5W 125mg/125ml 125 ML IV PRN (00:50)
[2018-11-07] MEDS: diltiazem-NS 100mg/100ml 100 ML IV PRN ×5 (02:55→03:12)
--- NOTE | 2018-11-07 03:40 | NUR ---
Patient in room PCU 3012. I have received report from MEHDI Bunn and had the opportunity to ask questions and assume patient care. She arrived in respiratory distress. The patient was placed on 4L of O2 and a Cardizem drip@5mg/hr.
[2018-11-07] MEDS: levalbuterol 1.25mg/0.5ml nebule IH PRN ×3 (03:41→16:07)
--- NOTE | 2018-11-07 06:00 | NUR ---
Patient in room PCU 3012. I have received report from ANKIT HARDING and had the opportunity to ask questions and assume patient care.
--- NOTE | 2018-11-07 06:30 | NUR ---
Problems reprioritized. Patient report given, questions answered & plan of care reviewed with Margarita HARDING.
[2018-11-07] MEDS ORDERED: diltiazem-NS 100mg/100ml 100 ML IV SCH (08:00)
[2018-11-07] MEDS: K and/or MAG REPLACEMENT MC SCH (08:00)
--- NOTE | 2018-11-07 09:00 | NUR ---
[id number] Tiffany Ospina PRN breathing tx for SOB. Thanks! Addendum: 11/07/18 at 1415 by Ania Boles RN ABDIEL BROWN @ [phone]
[2018-11-07] MEDS ORDERED: furosemide 20MG tablet PO SCH (09:36)
[2018-11-07] MEDS: levoFLOXACIN-Levaquin 500mg/D5 100 ML IV SCH (09:46)
[2018-11-07] MEDS: methylPREDNISolone sod succ/PF 40mg inj. IV SCH ×2 (09:47→20:09)
[2018-11-07] MEDS: pantoprazole 40mg Tablet.DR PO SCH (09:58)
[2018-11-07] MEDS: metoprolol tartrate 50mg tablet PO SCH ×2 (10:08→20:05)
[2018-11-07] MEDS: flecainide 50mg tablet PO SCH ×2 (10:09→20:03)
[2018-11-07] MEDS: apixaban 5mg tablet PO SCH ×2 (10:15→20:02)
[2018-11-07] MEDS ORDERED: furosemide 40mg/4ml inj IV ONE (12:00)
--- NOTE | 2018-11-07 15:53 | NUR ---
PATIENT REQUESTING BREATHING TREATMENT. RESPIRATORY PAGED
--- NOTE | 2018-11-07 18:45 | NUR ---
Patient in room PCU 3012B. I have received report from MEHDI Avila and had the opportunity to ask questions and assume patient care. Pt is A & O x4, denies CP, dizziness, SOB. Pt rated pain 10/10; however, she cannot take codeine and morphine because she was addicted to it. I called Dr. Lehman and placed an order for Tylenol 650 mg. Will continue to monitor
[2018-11-07] MEDS ORDERED: acetaminophen w/codeine (30MG) #3 tablet PO PRN (19:10)
[2018-11-07] MEDS: lactobacillus rhamnosus 10,000 MMU CELLS/CAPSULE PO SCH (20:02)
[2018-11-07] MEDS: furosemide 40mg/4ml inj IV SCH (20:09)
[2018-11-08 02:00] VITALS: BP 97/56
[2018-11-08] MEDS: levalbuterol 1.25mg/0.5ml nebule IH PRN ×3 (04:16→16:21)
[2018-11-08 06:00] VITALS: BP 112/64
[2018-11-08 06:19] LABS: BASOPHILS % (AUTO) 0.1 % (0-1); EOSINOPHILS % (AUTO) 0 % (0-6); HEMATOCRIT 37.8 % (35.0-45.0); HEMOGLOBIN 12.7 g/dl (12.0-16.0); LYMPHOCYTES # (AUTO) 0.6 X10'3 (1.1-4.8); MEAN CORPUSCULAR HGB CONC 33.5 g/dL (33.0-36.5); MEAN CORPUSCULAR VOLUME 83.5 FL (78-98); MONOCYTES # (AUTO) 0.2 X10'3 (0-0.9); MONOCYTES % (AUTO) 3.4 % (2-12); NEUTROPHILS # (AUTO) 6.5 X10'3 (1.8-7.7); NEUTROPHILS % (AUTO) 88.5 % (42-75); PLATELET COUNT 218 X10'3 (140-440); RED BLOOD COUNT 4.53 X10'6 (4.20-5.60); RED CELL DISTRIBUTION WIDTH 17.7 % (11.5-14.5); WHITE BLOOD COUNT 7.4 X10'3 (4.5-11.0)
--- NOTE | 2018-11-08 06:20 | NUR ---
Patient in room PCU 3012. I have received report from MEHDI Sandoval and had the opportunity to ask questions and assume patient care.
[2018-11-08 06:47] LABS: ANION GAP 5 (8-16); BLOOD UREA NITROGEN 26 MG/DL (7-18); BUN/CREATININE RATIO 30.2 (6.6-38.0); CALCIUM 8.4 MG/DL (8.5-10.1); CHLORIDE 102 MMOL/L (99-107); CREATININE 0.86 MG/DL (0.40-0.90); GLUCOSE 167 MG/DL (70-104); MAGNESIUM 2.2 MG/DL (1.5-2.4); SODIUM 140 MMOL/L (135-145); TOTAL CARBON DIOXIDE 32.6 MMOL/L (24-32); eGFR 67 ML/MIN
--- NOTE | 2018-11-08 06:52 | NUR ---
Problems reprioritized. Patient report given, questions answered & plan of care reviewed with .MEHDI Duron. Patient stable at shift change
--- NOTE | 2018-11-08 07:36 | NUR ---
Request order for Accuchek from Dr Stern via page.
[2018-11-08] MEDS: K and/or MAG REPLACEMENT MC SCH (08:00)
[2018-11-08] MEDS: methylPREDNISolone sod succ/PF 40mg inj. IV SCH ×2 (09:04→20:39)
[2018-11-08] MEDS: furosemide 40mg/4ml inj IV SCH ×2 (09:05→20:38)
[2018-11-08] MEDS: flecainide 50mg tablet PO SCH ×2 (09:06→20:41)
[2018-11-08] MEDS: metoprolol tartrate 50mg tablet PO SCH ×2 (09:06→20:40)
[2018-11-08] MEDS: pantoprazole 40mg Tablet.DR PO SCH (09:07)
[2018-11-08] MEDS: apixaban 5mg tablet PO SCH ×2 (09:07→20:39)
[2018-11-08] MEDS: lactobacillus rhamnosus 10,000 MMU CELLS/CAPSULE PO SCH ×2 (09:07→20:39)
[2018-11-08] MEDS: levoFLOXACIN-Levaquin 500mg/D5 100 ML IV SCH (09:08)
--- NOTE | 2018-11-08 10:52 | NUR ---
Andressa Ospina Rm [id number] consider giving her Xopenex scheduled q 6hrs for SOB, wheeze, desaturation. Page to Dr Stern
[2018-11-08 11:00] VITALS: BP 107/64
[2018-11-08 15:00] VITALS: BP 112/64
--- NOTE | 2018-11-08 18:20 | NUR ---
Problems reprioritized. Patient report given, questions answered & plan of care reviewed with Jenny RN .
[2018-11-08 19:00] VITALS: BP 119/53
[2018-11-08 23:00] VITALS: BP 112/61
[2018-11-09 03:00] VITALS: BP 96/60
[2018-11-09] MEDS ORDERED: levalbuterol 1.25mg/0.5ml nebule IH SCH (03:00)
[2018-11-09 06:00] VITALS: BP 134/20
[2018-11-09 06:03] LABS: BASOPHILS % (AUTO) 0.1 % (0-1); EOSINOPHILS % (AUTO) 0 % (0-6); HEMATOCRIT 38.5 % (35.0-45.0); HEMOGLOBIN 12.8 g/dl (12.0-16.0); LYMPHOCYTES # (AUTO) 0.6 X10'3 (1.1-4.8); LYMPHOCYTES % (AUTO) 5.9 % (21-51); MEAN CORPUSCULAR HEMOGLOBIN 28.1 PG (27.0-31.0); MEAN CORPUSCULAR HGB CONC 33.1 g/dL (33.0-36.5); MONOCYTES # (AUTO) 0.6 X10'3 (0-0.9); MONOCYTES % (AUTO) 5.4 % (2-12); NEUTROPHILS # (AUTO) 9.5 X10'3 (1.8-7.7); NEUTROPHILS % (AUTO) 88.6 % (42-75); PLATELET COUNT 246 X10'3 (140-440); RED BLOOD COUNT 4.53 X10'6 (4.20-5.60); RED CELL DISTRIBUTION WIDTH 17.9 % (11.5-14.5); WHITE BLOOD COUNT 10.7 X10'3 (4.5-11.0)
[2018-11-09 06:14] LABS: ALBUMIN 3.1 G/DL (3.4-5.0); ANION GAP 7 (8-16); BLOOD UREA NITROGEN 29 MG/DL (7-18); BUN/CREATININE RATIO 31.9 (6.6-38.0); CALCIUM 8.7 MG/DL (8.5-10.1); CHLORIDE 100 MMOL/L (99-107); CREATININE 0.91 MG/DL (0.40-0.90); GLUCOSE 150 MG/DL (70-104); MAGNESIUM 2.2 MG/DL (1.5-2.4); POTASSIUM 4.1 MMOL/L (3.5-5.1); SODIUM 141 MMOL/L (135-145); TOTAL CARBON DIOXIDE 34.3 MMOL/L (24-32); eGFR 63 ML/MIN
--- NOTE | 2018-11-09 06:37 | NUR ---
Patient in room PCU 3012. I have received report from Jenny RN and had the opportunity to ask questions and assume patient care. Patient sitting up in bedside chair. Patient stable at transfer of care.
--- NOTE | 2018-11-09 06:37 | NUR ---
Patient in room PCU 3012. I have received report from Jenny RN and had the opportunity to ask questions and assume patient care. Patient up to chair watching TV. No complaints at this time. All immediate needs met.
[2018-11-09] MEDS: methylPREDNISolone sod succ/PF 40mg inj. IV SCH (08:32)
[2018-11-09] MEDS: furosemide 40mg/4ml inj IV SCH (08:32)
[2018-11-09] MEDS: levoFLOXACIN-Levaquin 500mg/D5 100 ML IV SCH (08:32)
[2018-11-09] MEDS: apixaban 5mg tablet PO SCH (08:33)
[2018-11-09] MEDS: flecainide 50mg tablet PO SCH (08:33)
[2018-11-09 08:34] VITALS: BP_SYST 134
[2018-11-09] MEDS: metoprolol tartrate 50mg tablet PO SCH (08:34)
[2018-11-09] MEDS: lactobacillus rhamnosus 10,000 MMU CELLS/CAPSULE PO SCH (08:35)
[2018-11-09] MEDS: pantoprazole 40mg Tablet.DR PO SCH (08:35)
[2018-11-09] MEDS ORDERED: LEVO750T46 PO (09:13)
[2018-11-09] MEDS ORDERED: LACT1CAP26 PO (09:13)
[2018-11-09] MEDS ORDERED: PRED10TA23 PO (09:13)
[2018-11-09] MEDS ORDERED: LEVA1.2544 IH (09:13)
--- NOTE | 2018-11-09 11:00 | NUR ---
Patient stable for discharge per MD orders. All discharge instructions reviewed with patient and all questions answered. [place] [facility] [place] follow up with PCP in 2-3 days time and also with lithograph press feeder. PIV discontinued - cannula intact. Bedside telemetry discontinued. Patient wheeled to lobby by RN, accompanied by friend. Patient transported by private vehicle to home.
--- NOTE | 2018-11-09 11:00 | NUR ---
Orientee documentation: I have reviewed and agree with all interventions, assessments performed and documented by MEHDI Coe. Orientee Medication Administration: For this medication-pass time frame, all medication were reviewed, dispensed, administered and documented per hospital policy by MEHDI Coe.
== END 2018-11-09 11:03 | disposition home health service (06) | DRG 291 ==
LOC: ER 22:08 → EDBEDREQSVC 11-07 01:56 → EDBEDREQTM 11-07 01:56 → PCU 3S 11-07 03:18
PROVIDERS: ADMIT Internal Medicine; ATTEND Family Medicine
DX: I11.0 Hypertensive heart disease with heart failure (principal); J18.9 Pneumonia, unspecified organism; I50.33 Acute on chronic diastolic (congestive) heart failure; I27.81 Cor pulmonale (chronic); E78.00 Pure hypercholesterolemia, unspecified; I48.2 Chronic atrial fibrillation; I50.82 Biventricular heart failure; J43.9 Emphysema, unspecified; F32.9 Major depressive disorder, single episode, unspecified; F41.9 Anxiety disorder, unspecified; M54.9 Dorsalgia, unspecified; G89.29 Other chronic pain; R09.02 Hypoxemia; K21.9 Gastro-esophageal reflux disease without esophagitis; F10.20 Alcohol dependence, uncomplicated; M81.0 Age-related osteoporosis without current pathological fracture; Z79.899 Other long term (current) drug therapy; Z82.5 Family history of asthma and other chronic lower respiratory diseases; Z83.3 Family history of diabetes mellitus; Z85.118 Personal history of other malignant neoplasm of bronchus and lung; Z99.81 Dependence on supplemental oxygen; Z88.0 Allergy status to penicillin; Z88.5 Allergy status to narcotic agent; Z88.2 Allergy status to sulfonamides; Z88.1 Allergy status to other antibiotic agents
CPT/HCPCS: 36415; 71045; 80048; 80053; 82948; 83735; 83880; 84484; 85025; 85610; 85730; 93005; 94640; 94760; 96365; 96366; 96375; 96376; 97161; 97530; 99291; G0378; J1940; J1956; J2060; J2405; J2920; J3475; J3490; J7614

== ENCOUNTER 2018-11-22 16:14 | Inpatient (IN) | payer MEDICARE, MEDICAID ==
[~2018-11-22] VITALS: Ht 167.6 cm; Wt 103.2 kg
--- NOTE | 2018-11-22 10:30 | NUR ---
pt arrived to unit, recieved report from Usha HARDING from ER. Pt on 3L NC, Levaquin 100 mls/hr, IV in right arm. pt placed on tele 38
[~2018-11-22 16:14] MED LIST changes: -ALBU2.5V13 NEB; -BUDE10.22 INH; -FURO20TA4 PO; -FURO80TA87 PO; +LACT1CAP26 PO; +LEVA1.2544 IH; -LEVO750T21 PO; -METO-411 PO; -METO25TA6 PO; -PRED10TA PO; +PRED10TA23 PO; -PRED20TA PO; -TAM50T PO
[2018-11-22] MEDS ORDERED: ipratropium/albuterol 3ml nebule NEB ONE (16:35)
[2018-11-22] MEDS ORDERED: methylPREDNISolone sod succ 125mg/2ml vial IV ONE (16:35)
[2018-11-22] MEDS ORDERED: furosemide 40mg/4ml inj IV ONE (16:35)
[2018-11-22 16:47] LABS: CLARITY,URINE CLEAR (Clear); COLOR,URINE YELLOW (Yellow); GLUCOSE, URINE >=1000 mg/dl (Neg); KETONES,URINE TRACE mg/dl (Neg); LEUKOCYTE ESTERASE ,URINE NEGATIVE (Neg); NITRITES, URINE NEGATIVE (Neg); OCCULT BLOOD,URINE NEGATIVE (Neg); PROTEIN,URINE NEGATIVE (Neg); UROBILINOGEN,URINE 0.2 E.U/dL (0.2-1.0)
[2018-11-22 16:48] LABS: UA COLLECTION TYPE CLN CATCH MIDSTREAM
[2018-11-22 16:58] LABS: SQUAMOUS EPITHELIAL CELL,UR FEW /LPF (FEW)
[2018-11-22 17:00] LABS: BACTERIA,URINE FEW /HPF (Neg); RBC,URINE 0-2 /HPF (0-2); WBC,URINE 0-4 /HPF (0-4)
[2018-11-22 17:10] LABS: BASOPHILS # (AUTO) 0.1 X10'3 (0-0.2); BASOPHILS % (AUTO) 0.6 % (0-1); EOSINOPHILS % (AUTO) 0 % (0-6); HEMATOCRIT 35.8 % (35.0-45.0); HEMOGLOBIN 11.9 g/dl (12.0-16.0); LYMPHOCYTES # (AUTO) 0.9 X10'3 (1.1-4.8); LYMPHOCYTES % (AUTO) 8.8 % (21-51); MEAN CORPUSCULAR HGB CONC 33.3 g/dL (33.0-36.5); MEAN CORPUSCULAR VOLUME 84.2 FL (78-98); MEAN PLATELET VOLUME 7.9 FL (7.4-10.4); MONOCYTES # (AUTO) 0.6 X10'3 (0-0.9); MONOCYTES % (AUTO) 5.7 % (2-12); NEUTROPHILS # (AUTO) 8.6 X10'3 (1.8-7.7); NEUTROPHILS % (AUTO) 84.9 % (42-75); PLATELET COUNT 278 X10'3 (140-440); RED BLOOD COUNT 4.25 X10'6 (4.20-5.60); RED CELL DISTRIBUTION WIDTH 18.2 % (11.5-14.5); WHITE BLOOD COUNT 10.1 X10'3 (4.5-11.0)
[2018-11-22 17:20] LABS: ALANINE AMINOTRANSFERASE 32 U/L (12-78); ALBUMIN/GLOBULIN RATIO 0.9 (1.1-1.5); ALKALINE PHOSPHATASE 69 IU/L (46-116); ANION GAP 7 (8-16); ASPARTATE AMINO TRANSFERASE 11 U/L (10-37); BILIRUBIN,TOTAL 0.4 MG/DL (0.1-1.0); BLOOD UREA NITROGEN 19 MG/DL (7-18); BUN/CREATININE RATIO 17.9 (6.6-38.0); CALCIUM 8.2 MG/DL (8.5-10.1); CHLORIDE 106 MMOL/L (99-107); CREATININE 1.06 MG/DL (0.40-0.90); GLUCOSE 171 MG/DL (70-104); POTASSIUM 3.8 MMOL/L (3.5-5.1); SODIUM 145 MMOL/L (135-145); TOTAL CARBON DIOXIDE 32.3 MMOL/L (24-32); TOTAL PROTEIN 6.3 G/DL (6.4-8.2); eGFR 53 ML/MIN
[2018-11-22 17:40] LABS: ABG HCO3 31.4 mmol/L (22.0-26.0); ABG OXYGEN SATURATION 90.8 % (95-98); ABG PCO2 (T) 48.9 mmHg (35.0-45.0); ABG PH (T) 7.426 (7.350-7.450); ABG PO2 (T) 60.4 mmHg (83-108); ALLEN'S TEST Positive; FCOHb 0.8 % (0.5-1.5); FLOW 3 L/min; FMetHb 0.3 % (0.3-1.12); FO2Hb 89.8 % (94-100); TOTAL HEMOGLOBIN 12.6 G/dl (12.0-16.0)
[2018-11-22] MEDS ORDERED: potassium CL 10mEq/100ml bag 100 ML IV PRN ×2 (18:25)
[2018-11-22] MEDS ORDERED: insulin Lispro (HumaLOG) vial - multi-dose SQ SCH (18:25)
[2018-11-22] MEDS ORDERED: dextrose ORAL solution 15 GM/59 ML bottle PO PRN ×2 (18:25)
[2018-11-22] MEDS ORDERED: glucagon, human recombinant 1mg kit SUBCUT PRN (18:25)
[2018-11-22] MEDS ORDERED: ondansetron/PF 4mg/2ml inj IV PRN (18:25)
[2018-11-22] MEDS ORDERED: magnesium 4gm in 100ml NS 100 ML IV PRN (18:25)
[2018-11-22] MEDS ORDERED: MESSAGE TO PHARMACY PO ONE (18:25)
[2018-11-22] MEDS ORDERED: magnesium 2GM in 50ml NS 50 ML IV PRN (18:25)
[2018-11-22] MEDS ORDERED: mag hydrox/Alum hydrox/simeth 30ml oral suspension PO PRN (18:25)
[2018-11-22] MEDS ORDERED: dextrose 50%-water 50ml dispensing syringe IV PRN ×2 (18:25)
[2018-11-22] MEDS ORDERED: potassium Cl 20 mEq SR tablet PO PRN ×2 (18:25)
[2018-11-22] MEDS ORDERED: acetaminophen 325mg tablet PO PRN (18:25)
--- NOTE | 2018-11-22 18:46 | NUR ---
PT HR NOTED TO BE FREQUENTLY CHANGING FROM RATE OF 80'S TO 130'S. REPEAT EKG DONE ,SR CAPTURED. PT REPORTS HX OF A-FIB. DR PALAFOX CALLED AND INFORMED OF PTS HR. MD REPORTS HE NOTED HR CHANGES WHEN HE WAS ASSESSING PT AND HAD ORDERED PT HOME MEDS SHE TAKES FOR IT. RECEIVED VO TO GIVE TONIGHTS SCHEDULED MEDS OF FLECAINIDE AND METOPROLOL NOW.
[2018-11-22] MEDS: metoprolol tartrate 50mg tablet PO SCH (19:11)
[2018-11-22] MEDS: flecainide 50mg tablet PO SCH (19:13)
[2018-11-22] MEDS ORDERED: fentaNYL/PF 50MCG/1 ML 2ML syringe IV ONE (19:35)
[2018-11-22] MEDS ORDERED: cefepime 1GM in D5W 50mL 50 ML IV ONE (19:35)
[2018-11-22] MEDS ORDERED: cefepime 1GM/NS ADD-VANTAGE 100 ML IV SCH (19:47)
[2018-11-22] MEDS: furosemide 20 MG/2 ML vial IV SCH (20:00)
--- NOTE | 2018-11-22 20:30 | NUR ---
pt refusung medications . irriated refused fentayl and iv abx contacted dr hays in regards to her refusal of abx and fenta and the confusion she is having in thinking we are treating her sister vs her. pt refusing to get into a gown . states she will be wearing her summer dress
[2018-11-22] MEDS: apixaban 5mg tablet PO SCH (20:52)
[2018-11-22] MEDS: methylPREDNISolone sod succ/PF 40mg inj. IV SCH (21:00)
[2018-11-22] MEDS: insulin glargine (Lantus) pen - multi-dose SQ SCH (21:00)
[2018-11-22] MEDS: ipratropium/albuterol 3ml nebule NEB PRN (21:39)
[2018-11-22] MEDS ORDERED: levoFLOXACIN-Levaquin 500mg/D5 100 ML IV ONE (21:40)
--- NOTE | 2018-11-22 21:43 | NUR ---
SPOKE TO DR MORRISSEY ABOUT CRITCAL LATIC VALUE OF 4.7 ALSO REMINDED HER OF HER CURRENT REFUSAL OF THE ABX CEFAPIME , LASIX , AND SOLUMEDRAL. DR MORRISSEY VERBALIZED ORDERING LEVOQYIN THE ABX STATED THAT PATIENT CAN REFUSE THE CEFAPIME AND THE SOLUMEDRAL . ASKED DR MORRISSEY IF HE WANTED TO GIVE A BOLUS FOR THE ELEVATED LATIC AND HE DECLINED.
--- NOTE | 2018-11-22 21:59 | NUR ---
rt to give pt breathing treatment . pt agreed to levoquin abx . abx hung as ordered
[2018-11-23 03:00] VITALS: BP 132/54
[2018-11-23 05:08] LABS: BASOPHILS % (AUTO) 0.2 % (0-1); EOSINOPHILS % (AUTO) 0 % (0-6); HEMATOCRIT 36.9 % (35.0-45.0); HEMOGLOBIN 12.1 g/dl (12.0-16.0); LYMPHOCYTES # (AUTO) 0.7 X10'3 (1.1-4.8); MEAN CORPUSCULAR HEMOGLOBIN 27.8 PG (27.0-31.0); MEAN CORPUSCULAR HGB CONC 32.7 g/dL (33.0-36.5); MEAN CORPUSCULAR VOLUME 85.2 FL (78-98); MONOCYTES # (AUTO) 0.3 X10'3 (0-0.9); MONOCYTES % (AUTO) 4.1 % (2-12); NEUTROPHILS # (AUTO) 6.5 X10'3 (1.8-7.7); NEUTROPHILS % (AUTO) 86.7 % (42-75); PLATELET COUNT 251 X10'3 (140-440); RED BLOOD COUNT 4.33 X10'6 (4.20-5.60); RED CELL DISTRIBUTION WIDTH 18.2 % (11.5-14.5); WHITE BLOOD COUNT 7.5 X10'3 (4.5-11.0)
--- NOTE | 2018-11-23 05:32 | NUR ---
Orientee documentation: I have reviewed and agree with all interventions, assessments and med pass performed and documented by Amanda
[2018-11-23 05:49] LABS: ALANINE AMINOTRANSFERASE 33 U/L (12-78); ALBUMIN 3.1 G/DL (3.4-5.0); ALBUMIN/GLOBULIN RATIO 0.8 (1.1-1.5); ALKALINE PHOSPHATASE 62 IU/L (46-116); ANION GAP 7 (8-16); ASPARTATE AMINO TRANSFERASE 14 U/L (10-37); BILIRUBIN,TOTAL 0.4 MG/DL (0.1-1.0); BLOOD UREA NITROGEN 20 MG/DL (7-18); BUN/CREATININE RATIO 23.8 (6.6-38.0); CALCIUM 8.7 MG/DL (8.5-10.1); CHLORIDE 103 MMOL/L (99-107); CREATININE 0.84 MG/DL (0.40-0.90); GLUCOSE 153 MG/DL (70-104); MAGNESIUM 2.2 MG/DL (1.5-2.4); POTASSIUM 4.1 MMOL/L (3.5-5.1); SODIUM 142 MMOL/L (135-145); TOTAL CARBON DIOXIDE 31.6 MMOL/L (24-32); TOTAL PROTEIN 6.8 G/DL (6.4-8.2); eGFR 69 ML/MIN
[2018-11-23 06:00] VITALS: BP 144/63
--- NOTE | 2018-11-23 06:15 | NUR ---
Patient in room PCU 3020. I have received report from MEHDI Patel and had the opportunity to ask questions and assume patient care.
[2018-11-23] MEDS: K and/or MAG REPLACEMENT MC SCH (08:00)
[2018-11-23] MEDS: apixaban 5mg tablet PO SCH ×2 (08:32→20:13)
[2018-11-23] MEDS: flecainide 50mg tablet PO SCH ×2 (08:32→20:12)
[2018-11-23] MEDS: metoprolol tartrate 50mg tablet PO SCH ×2 (08:32→20:12)
[2018-11-23] MEDS: furosemide 20 MG/2 ML vial IV SCH ×2 (08:33→20:10)
[2018-11-23] MEDS: methylPREDNISolone sod succ/PF 40mg inj. IV SCH ×4 (08:33→20:10)
[2018-11-23] MEDS: ipratropium/albuterol 3ml nebule NEB PRN ×2 (09:13→16:45)
[2018-11-23] MEDS ORDERED: cefepime 1GM in D5W 50mL 50 ML IV SCH (09:25)
[2018-11-23] MEDS ORDERED: cefepime 1GM/NS ADD-VANTAGE 100 ML IV ONE (09:35)
[2018-11-23] MEDS ORDERED: docusate sod 100mg capsule PO PRN (10:50)
[2018-11-23 11:00] VITALS: BP 140/59
--- NOTE | 2018-11-23 11:38 | NUR ---
Paged hospitalist, "Diane [phone]- Rm: [phone] Called imaging confirmed that orders were for CT chest and abdomen without contrast, but with barium solution."
[2018-11-23 15:00] VITALS: BP 130/47
--- NOTE | 2018-11-23 15:48 | NUR ---
Paged hospitalist, " Diane Panda- [facility] req needs addressed for Rm. [phone] Andressa Ospina"
[2018-11-23] MEDS ORDERED: non-formulary drug (Alendronate Sodium (Fosamax) 1 TAB) PEG SCH (15:55)
[2018-11-23] MEDS: cefepime 1GM/NS ADD-VANTAGE 100 ML IV SCH ×2 (16:17→23:53)
--- NOTE | 2018-11-23 17:44 | NUR ---
Student documentation and med administration: I have reviewed and agree with all interventions, assessments performed and documented by Abi HARDING.
[2018-11-23 18:00] VITALS: BP 136/63
--- NOTE | 2018-11-23 18:52 | NUR ---
Problems reprioritized. Patient report given, questions answered & plan of care reviewed with MEHDI Scherer.
--- NOTE | 2018-11-23 18:52 | NUR ---
Patient in room PCU 3020. I have received report from Diane HARDING and Abi HARDING and had the opportunity to ask questions and assume patient care.
[2018-11-23] MEDS ORDERED: non-formulary drug (Flecainide Acetate 1 TAB) PO SCH (20:00)
[2018-11-23] MEDS ORDERED: apixaban 5mg tablet PO SCH (20:00)
[2018-11-23] MEDS ORDERED: non-formulary drug (Metoprolol Tartrate 1 TAB) PO SCH (20:00)
[2018-11-23] MEDS: lactobacillus rhamnosus 10,000 MMU CELLS/CAPSULE PO SCH (20:13)
[2018-11-23] MEDS: insulin glargine (Lantus) pen - multi-dose SQ SCH (20:17)
[2018-11-23] MEDS ORDERED: barium sulfate 450ml oral suspension PO SCH ×2 (21:00)
[2018-11-23] MEDS ORDERED: levoFLOXACIN-Levaquin 500mg/D5 100 ML IV SCH (21:00)
--- NOTE | 2018-11-23 21:34 | NUR ---
Pt has 2100 blood sugar of 194, however, pt has just eaten yogurt 15-20 minutes prior and received solumedrol 35 minutes prior. Will contiune to monitor.
[2018-11-23 22:00] VITALS: BP 135/55
[2018-11-24 02:00] VITALS: BP 150/66
[2018-11-24 06:00] VITALS: BP 122/53
--- NOTE | 2018-11-24 06:13 | NUR ---
Problems reprioritized. Patient report given, questions answered & plan of care reviewed with Justa HARDING and Maria Luz HARDING.
--- NOTE | 2018-11-24 06:15 | NUR ---
Patient in room PCU 3020. I have received report from Niesha HARDING and had the opportunity to ask questions and assume patient care.
[2018-11-24 06:26] LABS: BASOPHILS % (AUTO) 0.2 % (0-1); EOSINOPHILS % (AUTO) 0 % (0-6); HEMATOCRIT 37.9 % (35.0-45.0); HEMOGLOBIN 12.6 g/dl (12.0-16.0); LYMPHOCYTES # (AUTO) 0.9 X10'3 (1.1-4.8); LYMPHOCYTES % (AUTO) 7.5 % (21-51); MEAN CORPUSCULAR HEMOGLOBIN 27.9 PG (27.0-31.0); MEAN CORPUSCULAR HGB CONC 33.2 g/dL (33.0-36.5); MEAN PLATELET VOLUME 8.1 FL (7.4-10.4); MONOCYTES # (AUTO) 0.6 X10'3 (0-0.9); MONOCYTES % (AUTO) 5.1 % (2-12); NEUTROPHILS % (AUTO) 87.2 % (42-75); PLATELET COUNT 320 X10'3 (140-440); RED BLOOD COUNT 4.51 X10'6 (4.20-5.60); RED CELL DISTRIBUTION WIDTH 18.2 % (11.5-14.5); WHITE BLOOD COUNT 11.5 X10'3 (4.5-11.0)
[2018-11-24 06:38] LABS: ALANINE AMINOTRANSFERASE 31 U/L (12-78); ALBUMIN 3.2 G/DL (3.4-5.0); ALBUMIN/GLOBULIN RATIO 0.9 (1.1-1.5); ALKALINE PHOSPHATASE 61 IU/L (46-116); ANION GAP 9 (8-16); ASPARTATE AMINO TRANSFERASE 9 U/L (10-37); BILIRUBIN,TOTAL 0.3 MG/DL (0.1-1.0); BLOOD UREA NITROGEN 28 MG/DL (7-18); BUN/CREATININE RATIO 29.2 (6.6-38.0); CALCIUM 8.7 MG/DL (8.5-10.1); CHLORIDE 101 MMOL/L (99-107); CREATININE 0.96 MG/DL (0.40-0.90); GLUCOSE 162 MG/DL (70-104); MAGNESIUM 2.1 MG/DL (1.5-2.4); POTASSIUM 4.2 MMOL/L (3.5-5.1); SODIUM 141 MMOL/L (135-145); TOTAL PROTEIN 6.9 G/DL (6.4-8.2); eGFR 59 ML/MIN
[2018-11-24] MEDS ORDERED: barium sulfate 450ml oral suspension PO ONE (07:00)
[2018-11-24] MEDS: methylPREDNISolone sod succ/PF 40mg inj. IV SCH ×4 (07:59→20:37)
[2018-11-24] MEDS: cefepime 1GM/NS ADD-VANTAGE 100 ML IV SCH ×3 (07:59→23:28)
[2018-11-24] MEDS: furosemide 20 MG/2 ML vial IV SCH ×2 (08:00→20:41)
[2018-11-24] MEDS ORDERED: Fluticasone/Umeclidin/Vilanter (Trelegy Ellipta 100-62.5-25) INHALER IH SCH (08:00)
[2018-11-24] MEDS: K and/or MAG REPLACEMENT MC SCH (08:00)
[2018-11-24] MEDS: calcium carbonate/vitamin D3 tablet PO SCH (08:00)
[2018-11-24] MEDS: lactobacillus rhamnosus 10,000 MMU CELLS/CAPSULE PO SCH ×2 (08:00→20:36)
[2018-11-24] MEDS: flecainide 50mg tablet PO SCH ×2 (08:01→20:36)
[2018-11-24] MEDS: metoprolol tartrate 50mg tablet PO SCH ×2 (08:04→20:41)
[2018-11-24] MEDS: pantoprazole 40mg Tablet.DR PO SCH ×2 (08:05→20:37)
[2018-11-24] MEDS: apixaban 5mg tablet PO SCH ×2 (08:05→20:37)
[2018-11-24] MEDS: magnesium oxide 400mg tablet PO SCH (08:06)
[2018-11-24] MEDS: ipratropium/albuterol 3ml nebule NEB PRN (08:44)
[2018-11-24] MEDS ORDERED: barium sulfate 450ml oral suspension PO PRN (09:00)
[2018-11-24 11:00] VITALS: BP 113/55
[2018-11-24 15:00] VITALS: BP 116/52
[2018-11-24 18:00] VITALS: BP 106/38
--- NOTE | 2018-11-24 18:22 | NUR ---
Orientee documentation: I have reviewed and agree with all interventions, assessments performed and documented by Maria Luz HARDING. Orientee Medication Administration: For this medication-pass time frame, all medication were reviewed, dispensed, administered and documented per hospital policy by Maria Luz HARDING.
--- NOTE | 2018-11-24 18:30 | NUR ---
Problems reprioritized. Patient report given, questions answered & plan of care reviewed with Carolee & Doug RN. Patient stable at time of transfer of care.
--- NOTE | 2018-11-24 18:32 | NUR ---
Patient in room PCU 3020. I have received report from Oliverio Ramos and had the opportunity to ask questions and assume patient care. bedside report completed.
[2018-11-24] MEDS: insulin glargine (Lantus) pen - multi-dose SQ SCH (20:47)
[2018-11-24 22:50] VITALS: BP 124/65
[2018-11-25 03:09] VITALS: BP 142/66
[2018-11-25 05:44] LABS: BASOPHILS % (AUTO) 0.1 % (0-1); EOSINOPHILS % (AUTO) 0 % (0-6); HEMATOCRIT 38.7 % (35.0-45.0); HEMOGLOBIN 12.6 g/dl (12.0-16.0); LYMPHOCYTES # (AUTO) 0.6 X10'3 (1.1-4.8); LYMPHOCYTES % (AUTO) 5.8 % (21-51); MEAN CORPUSCULAR HEMOGLOBIN 27.9 PG (27.0-31.0); MEAN CORPUSCULAR HGB CONC 32.7 g/dL (33.0-36.5); MEAN CORPUSCULAR VOLUME 85.4 FL (78-98); MEAN PLATELET VOLUME 7.9 FL (7.4-10.4); MONOCYTES # (AUTO) 0.6 X10'3 (0-0.9); MONOCYTES % (AUTO) 5.3 % (2-12); NEUTROPHILS # (AUTO) 9.8 X10'3 (1.8-7.7); NEUTROPHILS % (AUTO) 88.8 % (42-75); PLATELET COUNT 282 X10'3 (140-440); RED BLOOD COUNT 4.54 X10'6 (4.20-5.60); RED CELL DISTRIBUTION WIDTH 18.2 % (11.5-14.5); WHITE BLOOD COUNT 11.1 X10'3 (4.5-11.0)
[2018-11-25 06:00] VITALS: BP 150/66
[2018-11-25 06:06] LABS: ALANINE AMINOTRANSFERASE 30 U/L (12-78); ALBUMIN 3.1 G/DL (3.4-5.0); ALBUMIN/GLOBULIN RATIO 0.9 (1.1-1.5); ALKALINE PHOSPHATASE 57 IU/L (46-116); ANION GAP 7 (8-16); ASPARTATE AMINO TRANSFERASE 8 U/L (10-37); BILIRUBIN,TOTAL 0.3 MG/DL (0.1-1.0); BLOOD UREA NITROGEN 36 MG/DL (7-18); BUN/CREATININE RATIO 41.9 (6.6-38.0); CALCIUM 8.7 MG/DL (8.5-10.1); CHLORIDE 103 MMOL/L (99-107); CREATININE 0.86 MG/DL (0.40-0.90); GLUCOSE 163 MG/DL (70-104); MAGNESIUM 2.2 MG/DL (1.5-2.4); POTASSIUM 4.1 MMOL/L (3.5-5.1); SODIUM 143 MMOL/L (135-145); TOTAL CARBON DIOXIDE 32.8 MMOL/L (24-32); TOTAL PROTEIN 6.6 G/DL (6.4-8.2); eGFR 67 ML/MIN
--- NOTE | 2018-11-25 06:15 | NUR ---
Problems reprioritized. Patient report given,to Nii RN at bedside questions answered & plan of care reviewed with .
--- NOTE | 2018-11-25 06:16 | NUR ---
Problems reprioritized. Patient report given, questions answered & plan of care reviewed with MEHDI Bay. Addendum: 11/25/18 at 0618 by Nii Gamez RN Correction I received report from MEHDI Bay.
--- NOTE | 2018-11-25 06:38 | NUR ---
PAGER ID: [phone] MESSAGE: [phone] Andressa Ospina is requesting a respiratory tx but she has no orders, takes Albuterol inhaler at home. Can we order breathing tx's prn? (Dx Pneumonia) MEHDI Bales Ext [phone]
[2018-11-25] MEDS ORDERED: ipratropium/albuterol 3ml nebule NEB PRN (06:50)
[2018-11-25] MEDS: ipratropium/albuterol 3ml nebule NEB SCH ×2 (06:57→11:01)
[2018-11-25] MEDS: cefepime 1GM/NS ADD-VANTAGE 100 ML IV SCH (07:35)
[2018-11-25] MEDS: methylPREDNISolone sod succ/PF 40mg inj. IV SCH (07:35)
[2018-11-25] MEDS: furosemide 20 MG/2 ML vial IV SCH (07:36)
[2018-11-25] MEDS: lactobacillus rhamnosus 10,000 MMU CELLS/CAPSULE PO SCH (07:36)
[2018-11-25] MEDS: magnesium oxide 400mg tablet PO SCH (07:36)
[2018-11-25] MEDS: calcium carbonate/vitamin D3 tablet PO SCH (07:36)
[2018-11-25] MEDS: flecainide 50mg tablet PO SCH (07:36)
[2018-11-25] MEDS: pantoprazole 40mg Tablet.DR PO SCH (07:36)
[2018-11-25] MEDS: K and/or MAG REPLACEMENT MC SCH (07:37)
[2018-11-25] MEDS: apixaban 5mg tablet PO SCH (07:37)
[2018-11-25] MEDS: metoprolol tartrate 50mg tablet PO SCH (07:37)
[2018-11-25] MEDS ORDERED: CEFU500T66 PO (10:59)
[2018-11-25] MEDS ORDERED: PRED20TA PO (10:59)
[2018-11-25 11:00] VITALS: BP 134/54
--- NOTE | 2018-11-25 11:51 | NUR ---
Patient refused blood sugar check. Primary RNNii at the bedside and is aware.
--- NOTE | 2018-11-25 12:15 | NUR ---
Meds called into [facility] on [facility].
--- NOTE | 2018-11-25 12:16 | NUR ---
Discharged patient. Educated on meds and follow-up. Already has follow-up tomorrow with PCP. Educated on CHF and Pneumonia. Educated on [facility] Cardiac rehab program. All objectives for CHF core measures met. IV taken out and tell taken off. Patient wheeled out on wheelchair by SN. Has home O2. Medicare DC rights signed.
== END 2018-11-25 12:16 | disposition home health service (06) | DRG 291 ==
LOC: ER 16:15 → ED HOLD 18:33 → PCU 3S 22:55
PROVIDERS: ADMIT Family Medicine; ATTEND Family Medicine
DX: I11.0 Hypertensive heart disease with heart failure (principal); J96.20 Acute and chronic respiratory failure, unspecified whether with hypoxia or hypercapnia; J18.9 Pneumonia, unspecified organism; I50.33 Acute on chronic diastolic (congestive) heart failure; I43 Cardiomyopathy in diseases classified elsewhere; R73.9 Hyperglycemia, unspecified; M81.0 Age-related osteoporosis without current pathological fracture; F41.9 Anxiety disorder, unspecified; G89.29 Other chronic pain; M54.9 Dorsalgia, unspecified; E78.00 Pure hypercholesterolemia, unspecified; I48.0 Paroxysmal atrial fibrillation; K57.30 Diverticulosis of large intestine without perforation or abscess without bleeding; T38.0X5A Adverse effect of glucocorticoids and synthetic analogues, initial encounter; J43.9 Emphysema, unspecified; K21.9 Gastro-esophageal reflux disease without esophagitis; Z98.891 History of uterine scar from previous surgery; Z95.0 Presence of cardiac pacemaker; Z79.01 Long term (current) use of anticoagulants; Z79.83 Long term (current) use of bisphosphonates; Z79.899 Other long term (current) drug therapy; Z88.8 Allergy status to other drugs, medicaments and biological substances; Z88.6 Allergy status to analgesic agent; Z88.1 Allergy status to other antibiotic agents; Z91.041 Radiographic dye allergy status; Z88.0 Allergy status to penicillin; Z91.013 Allergy to seafood; Z80.1 Family history of malignant neoplasm of trachea, bronchus and lung; Z82.5 Family history of asthma and other chronic lower respiratory diseases; Z83.3 Family history of diabetes mellitus; Z85.118 Personal history of other malignant neoplasm of bronchus and lung; Z87.01 Personal history of pneumonia (recurrent); Z87.891 Personal history of nicotine dependence; Z92.3 Personal history of irradiation; Z99.81 Dependence on supplemental oxygen; Z56.0 Unemployment, unspecified; Y92.89 Other specified places as the place of occurrence of the external cause
CPT/HCPCS: 36415; 36600; 71045; 71250; 74176; 80053; 81001; 82803; 82948; 83036; 83605; 83735; 83880; 84132; 85018; 85025; 85610; 87040; 87081; 93005; 93306; 94640; 94760; 96374; 96375; 99285; G0378; J0692; J1815; J1940; J1956; J2920; J2930; J3010

== ENCOUNTER 2018-12-01 07:56 | Emergency (ER) | payer MEDICARE, MEDICAID ==
[~2018-12-01] VITALS: Ht 167.6 cm; Wt 104.0 kg
[~2018-12-01 07:56] MED LIST changes: +CEFU500T66 PO; -LEVO750T46 PO; -PRED10TA23 PO; +PRED20TA PO
[2018-12-01 08:00] VITALS: BP 106/66
[2018-12-01 08:40] LABS: BASOPHILS % (AUTO) 0.2 % (0-1); EOSINOPHILS % (AUTO) 0.2 % (0-6); HEMATOCRIT 38.6 % (35.0-45.0); HEMOGLOBIN 12.5 g/dl (12.0-16.0); LYMPHOCYTES # (AUTO) 0.8 X10'3 (1.1-4.8); LYMPHOCYTES % (AUTO) 5.5 % (21-51); MEAN CORPUSCULAR HEMOGLOBIN 27.7 PG (27.0-31.0); MEAN CORPUSCULAR HGB CONC 32.5 g/dL (33.0-36.5); MEAN CORPUSCULAR VOLUME 85.1 FL (78-98); MEAN PLATELET VOLUME 8.3 FL (7.4-10.4); MONOCYTES # (AUTO) 0.7 X10'3 (0-0.9); MONOCYTES % (AUTO) 4.6 % (2-12); NEUTROPHILS # (AUTO) 13.5 X10'3 (1.8-7.7); NEUTROPHILS % (AUTO) 89.5 % (42-75); PLATELET COUNT 191 X10'3 (140-440); RED BLOOD COUNT 4.53 X10'6 (4.20-5.60); WHITE BLOOD COUNT 15.1 X10'3 (4.5-11.0)
[2018-12-01 08:52] LABS: ALANINE AMINOTRANSFERASE 41 U/L (12-78); ALBUMIN/GLOBULIN RATIO 0.9 (1.1-1.5); ALKALINE PHOSPHATASE 66 IU/L (46-116); ANION GAP 6 (8-16); ASPARTATE AMINO TRANSFERASE 15 U/L (10-37); BILIRUBIN,TOTAL 0.5 MG/DL (0.1-1.0); BLOOD UREA NITROGEN 25 MG/DL (7-18); BUN/CREATININE RATIO 25.3 (6.6-38.0); CALCIUM 8.5 MG/DL (8.5-10.1); CHLORIDE 100 MMOL/L (99-107); CREATININE 0.99 MG/DL (0.40-0.90); GLUCOSE 143 MG/DL (70-104); POTASSIUM 4.1 MMOL/L (3.5-5.1); SODIUM 139 MMOL/L (135-145); TOTAL CARBON DIOXIDE 33.1 MMOL/L (24-32); TOTAL PROTEIN 6.5 G/DL (6.4-8.2); eGFR 57 ML/MIN
[2018-12-01 09:13] LABS: PARTIAL THROMBOPLASTIN TIME 27 SECONDS (22-32)
[2018-12-01 09:25] LABS: D-DIMER < 0.19 MG/L FEU (0-0.50)
== END 2018-12-01 10:41 | disposition left against medical advice (07) ==
LOC: ER 07:57
DX: R07.89 Other chest pain (principal); J44.1 Chronic obstructive pulmonary disease with (acute) exacerbation; I11.0 Hypertensive heart disease with heart failure; I50.9 Heart failure, unspecified; I48.91 Unspecified atrial fibrillation; E78.00 Pure hypercholesterolemia, unspecified; K21.9 Gastro-esophageal reflux disease without esophagitis; G89.29 Other chronic pain; F41.9 Anxiety disorder, unspecified; F31.9 Bipolar disorder, unspecified; Z95.0 Presence of cardiac pacemaker; Z98.890 Other specified postprocedural states; Z56.0 Unemployment, unspecified; Z88.0 Allergy status to penicillin; Z88.5 Allergy status to narcotic agent; Z88.2 Allergy status to sulfonamides; Z79.899 Other long term (current) drug therapy
CPT/HCPCS: 36415; 71045; 80053; 83880; 84484; 85025; 85379; 85610; 85730; 93005; 99284

== ENCOUNTER 2018-12-03 21:25 | Inpatient (IN) | payer MEDICARE, MEDICAID ==
[~2018-12-03] VITALS: Ht 167.6 cm; Wt 103.2 kg
[2018-12-03] MEDS ORDERED: ipratropium/albuterol 3ml nebule NEB ONE (21:45)
[2018-12-03] MEDS ORDERED: methylPREDNISolone sod succ 125mg/2ml vial IV ONE (21:45)
[2018-12-03 22:25] LABS: ABG BASE EXCESS 3.9 mmol/L (-2.0-3.0); ABG HCO3 29.1 mmol/L (22.0-26.0); ABG OXYGEN SATURATION 93.2 % (95-98); ABG PCO2 (T) 45.5 mmHg (35.0-45.0); ABG PH (T) 7.422 (7.350-7.450); ABG PO2 (T) 66.3 mmHg (83-108); ALLEN'S TEST Positive; FLOW 4 L/min; FO2Hb 92.3 % (94-100); PATIENT TEMPERATURE 36.7; TOTAL HEMOGLOBIN 12.6 G/dl (12.0-16.0)
--- NOTE | 2018-12-03 22:50 | NUR ---
Pt reports increased comfort in upright position. Currently on 4L O2 @ 94%.
[2018-12-03 22:51] LABS: BASOPHILS % (AUTO) 0.5 % (0-1); EOSINOPHILS % (AUTO) 0.4 % (0-6); HEMATOCRIT 36.8 % (35.0-45.0); HEMOGLOBIN 12.1 g/dl (12.0-16.0); LYMPHOCYTES # (AUTO) 1.3 X10'3 (1.1-4.8); LYMPHOCYTES % (AUTO) 13.6 % (21-51); MEAN CORPUSCULAR HEMOGLOBIN 28.2 PG (27.0-31.0); MEAN CORPUSCULAR VOLUME 85.4 FL (78-98); MEAN PLATELET VOLUME 8.2 FL (7.4-10.4); NEUTROPHILS # (AUTO) 7.2 X10'3 (1.8-7.7); NEUTROPHILS % (AUTO) 75.5 % (42-75); PLATELET COUNT 233 X10'3 (140-440); RED CELL DISTRIBUTION WIDTH 18.1 % (11.5-14.5); WHITE BLOOD COUNT 9.5 X10'3 (4.5-11.0)
[2018-12-03 23:04] LABS: PARTIAL THROMBOPLASTIN TIME 26 SECONDS (22-32)
[2018-12-03 23:07] LABS: ALANINE AMINOTRANSFERASE 37 U/L (12-78); ALBUMIN/GLOBULIN RATIO 0.9 (1.1-1.5); ALKALINE PHOSPHATASE 76 IU/L (46-116); ANION GAP 5 (8-16); ASPARTATE AMINO TRANSFERASE 12 U/L (10-37); BILIRUBIN,TOTAL 0.3 MG/DL (0.1-1.0); BLOOD UREA NITROGEN 22 MG/DL (7-18); BUN/CREATININE RATIO 27.5 (6.6-38.0); CALCIUM 8.7 MG/DL (8.5-10.1); CHLORIDE 106 MMOL/L (99-107); GLUCOSE 93 MG/DL (70-104); SODIUM 145 MMOL/L (135-145); TOTAL CARBON DIOXIDE 34.4 MMOL/L (24-32); TOTAL PROTEIN 6.5 G/DL (6.4-8.2); eGFR 73 ML/MIN
[2018-12-03 23:57] LABS: D-DIMER < 0.19 MG/L FEU (0-0.50)
[2018-12-04] MEDS ORDERED: acetaminophen 325mg tablet PO PRN (00:45)
[2018-12-04] MEDS ORDERED: ondansetron/PF 4mg/2ml inj IV PRN (00:45)
[2018-12-04] MEDS ORDERED: HYDROcodone/acetaminophen 5mg/325mg tablet PO PRN (00:45)
[2018-12-04] MEDS ORDERED: mag hydrox/Alum hydrox/simeth 30ml oral suspension PO PRN (00:45)
[2018-12-04] MEDS ORDERED: magnesium hydroxide 30ml (MOM) UD suspension PO PRN (00:45)
[2018-12-04] MEDS ORDERED: albuterol 2.5 MG/3 ML nebule NEB PRN (00:50)
[2018-12-04] MEDS ORDERED: HYDROcodone/acetaminophen 10/325mg tab PO PRN (00:50)
[2018-12-04 01:40] VITALS: BP 134/58
--- NOTE | 2018-12-04 01:48 | NUR ---
Patient in room PCU 3014. I have received report from Michelle HARDING and had the opportunity to ask questions and assume patient care.
[2018-12-04] MEDS: acetaminophen 325mg tablet PO PRN (03:39)
--- NOTE | 2018-12-04 04:17 | NUR ---
Patient had a BM and stated she saw some blood on the wipes. She had flushed before examination possible. Will report to day shift and continue to monitor.
[2018-12-04 06:00] VITALS: BP 141/62
--- NOTE | 2018-12-04 06:12 | NUR ---
Problems reprioritized. Patient report given, questions answered & plan of care reviewed with Nii HARDING.
[2018-12-04] MEDS: albuterol 2.5 MG/3 ML nebule NEB PRN ×3 (07:24→20:30)
[2018-12-04] MEDS: magnesium oxide 400mg tablet PO SCH (07:30)
[2018-12-04] MEDS: pantoprazole 40mg Tablet.DR PO SCH (07:30)
[2018-12-04] MEDS: lactobacillus rhamnosus 10,000 MMU CELLS/CAPSULE PO SCH ×2 (07:30→20:26)
[2018-12-04] MEDS: potassium chloride 8mEq ER tablet PO SCH ×2 (07:30→20:30)
[2018-12-04] MEDS: flecainide 50mg tablet PO SCH ×2 (07:31→20:31)
[2018-12-04] MEDS: apixaban 5mg tablet PO SCH ×2 (07:31→20:26)
[2018-12-04] MEDS: metoprolol tartrate 50mg tablet PO SCH ×2 (07:33→20:41)
[2018-12-04] MEDS: calcium carbonate/vitamin D3 tablet PO SCH (07:34)
[2018-12-04] MEDS ORDERED: furosemide 20MG tablet PO SCH (08:00)
[2018-12-04] MEDS: (Fluticasone/Umeclidin/Vilanter (Trelegy Ellipta 100-62.5-25) 1 PUFF) IH SCH (08:00)
[2018-12-04] MEDS ORDERED: furosemide 40mg/4ml inj IV ONE (08:50)
[2018-12-04] MEDS: furosemide 40mg/4ml inj IV SCH ×2 (09:35→20:29)
[2018-12-04] MEDS ORDERED: aminophylline 250mg/10ml inj. IV PRN (10:20)
[2018-12-04] MEDS ORDERED: nitroGLYCERIN 0.4mg SUBLingual tab SL PRN (10:20)
[2018-12-04] MEDS ORDERED: metoprolol tartrate 1mg/ml inj IV PRN (10:20)
[2018-12-04] MEDS ORDERED: regadenoson 0.4mg/5ml syringe IV ONE (10:20)
[2018-12-04 11:00] VITALS: BP 129/71
[2018-12-04 15:00] VITALS: BP 112/65
[2018-12-04 18:00] VITALS: BP 91/54
--- NOTE | 2018-12-04 18:05 | NUR ---
Problems reprioritized. Patient report given, questions answered & plan of care reviewed with MEHDI Oden.
--- NOTE | 2018-12-04 20:40 | NUR ---
pt was discovered on the floor while attempting to get out of recliner chair. pt stated she accidently put her foot on bottom of the table and lost balance. Vital sign WNL post fall and Md notified. No laceration/ bruised were noted. Pt received education about fall risk and precaution and stated will use call light when she needs to use the commode. Commode moved closer to patient. table was appropurated placed in the right distance from patient.
--- NOTE | 2018-12-04 20:45 | NUR ---
Dr Haider was notified about continuing pt's medication prenisone 50mg. 1st dose will start on 12/05 @ 0830. pt was concerned with the discontinue of the medication because her cancer doctor instructed her to take the med for 7 days to help with the inflammation
[2018-12-04] MEDS ORDERED: prednisone 10mg tablet PO ONE (21:25)
[2018-12-04 22:00] VITALS: BP 108/47
[2018-12-05] VITALS (13 sets, daily range): BP systolic 85–157; BP diastolic 36–86
[2018-12-05 05:13] LABS: BASOPHILS % (AUTO) 0.3 % (0-1); EOSINOPHILS % (AUTO) 0.3 % (0-6); HEMATOCRIT 38.3 % (35.0-45.0); HEMOGLOBIN 12.6 g/dl (12.0-16.0); LYMPHOCYTES # (AUTO) 1.4 X10'3 (1.1-4.8); LYMPHOCYTES % (AUTO) 12.3 % (21-51); MEAN CORPUSCULAR HEMOGLOBIN 28.1 PG (27.0-31.0); MEAN CORPUSCULAR HGB CONC 32.9 g/dL (33.0-36.5); MEAN CORPUSCULAR VOLUME 85.5 FL (78-98); MONOCYTES % (AUTO) 8.5 % (2-12); NEUTROPHILS % (AUTO) 78.6 % (42-75); PLATELET COUNT 235 X10'3 (140-440); RED BLOOD COUNT 4.48 X10'6 (4.20-5.60); RED CELL DISTRIBUTION WIDTH 18.3 % (11.5-14.5); WHITE BLOOD COUNT 11.4 X10'3 (4.5-11.0)
[2018-12-05] MEDS: albuterol 2.5 MG/3 ML nebule NEB PRN ×3 (05:18→18:58)
[2018-12-05 06:11] LABS: ALBUMIN 3.1 G/DL (3.4-5.0); ANION GAP 6 (8-16); BLOOD UREA NITROGEN 30 MG/DL (7-18); BUN/CREATININE RATIO 31.6 (6.6-38.0); CALCIUM 8.7 MG/DL (8.5-10.1); CHLORIDE 101 MMOL/L (99-107); CREATININE 0.95 MG/DL (0.40-0.90); GLUCOSE 105 MG/DL (70-104); POTASSIUM 3.5 MMOL/L (3.5-5.1); SODIUM 142 MMOL/L (135-145); TOTAL CARBON DIOXIDE 34.8 MMOL/L (24-32); eGFR 60 ML/MIN
--- NOTE | 2018-12-05 06:28 | NUR ---
Patient in room PCU 3014. I have received report from MEHDI Oden and had the opportunity to ask questions and assume patient care.
[2018-12-05 07:10] LABS: TOTAL CELLS COUNTED 100
[2018-12-05 07:11] LABS: PLATELET ESTIMATE NORMAL
[2018-12-05 07:12] LABS: ANISOCYTOSIS 2+; GIANT PLATELET FEW; LARGE PLATELETS FEW; POLYCHROMASIA FEW
[2018-12-05 07:13] LABS: HYPOCHROMASIA 1+
[2018-12-05] MEDS: pantoprazole 40mg Tablet.DR PO SCH (07:41)
[2018-12-05] MEDS: calcium carbonate/vitamin D3 tablet PO SCH (07:41)
[2018-12-05] MEDS: lactobacillus rhamnosus 10,000 MMU CELLS/CAPSULE PO SCH ×2 (07:41→20:50)
[2018-12-05] MEDS: magnesium oxide 400mg tablet PO SCH (07:41)
[2018-12-05] MEDS: potassium chloride 8mEq ER tablet PO SCH ×2 (07:41→20:50)
[2018-12-05] MEDS: prednisone 10mg tablet PO SCH (07:41)
[2018-12-05] MEDS: apixaban 5mg tablet PO SCH ×2 (07:41→20:52)
[2018-12-05] MEDS: (Fluticasone/Umeclidin/Vilanter (Trelegy Ellipta 100-62.5-25) 1 PUFF) IH SCH (08:00)
--- NOTE | 2018-12-05 09:02 | NUR ---
PAGER ID: [phone] MESSAGE: [phone] Andressa Ospina, reported to me she has been having bloody stools for past 4 days (I haven't visualized any stools yet). H&H near same levels as yesterday. H&H WNL. MEHDI Bales Ext [phone]
[2018-12-05] MEDS: flecainide 50mg tablet PO SCH ×2 (11:26→20:52)
[2018-12-05] MEDS: metoprolol tartrate 50mg tablet PO SCH ×2 (11:26→20:49)
[2018-12-05] MEDS: furosemide 40mg/4ml inj IV SCH ×2 (11:27→20:46)
--- NOTE | 2018-12-05 18:07 | NUR ---
Problems reprioritized. Patient report given, questions answered & plan of care reviewed with MEHDI Hanson.
--- NOTE | 2018-12-05 18:20 | NUR ---
Patient in room PCU 3014. I have received report from Nii HARDING and had the opportunity to ask questions and assume patient care. Patient is up in her chair talking on the phone. Will continue to monitor.
[2018-12-05] MEDS: guaiFENesin ER 600mg tablet PO SCH (20:00)
[2018-12-05] MEDS: docusate sod 100mg capsule PO SCH (20:51)
[2018-12-06 03:00] VITALS: BP 116/80
[2018-12-06] MEDS: acetaminophen 325mg tablet PO PRN (06:12)
--- NOTE | 2018-12-06 06:15 | NUR ---
Patient in room PCU 3014a. I have received report from yazan and had the opportunity to ask questions and assume patient care.
[2018-12-06 06:18] LABS: BASOPHILS % (AUTO) 0.3 % (0-1); EOSINOPHILS % (AUTO) 0.4 % (0-6); HEMATOCRIT 37.6 % (35.0-45.0); HEMOGLOBIN 12.5 g/dl (12.0-16.0); LYMPHOCYTES # (AUTO) 1.3 X10'3 (1.1-4.8); LYMPHOCYTES % (AUTO) 11.1 % (21-51); MEAN CORPUSCULAR HGB CONC 33.3 g/dL (33.0-36.5); MEAN CORPUSCULAR VOLUME 84.3 FL (78-98); MEAN PLATELET VOLUME 8.2 FL (7.4-10.4); MONOCYTES # (AUTO) 1.1 X10'3 (0-0.9); MONOCYTES % (AUTO) 9.1 % (2-12); NEUTROPHILS # (AUTO) 9.2 X10'3 (1.8-7.7); NEUTROPHILS % (AUTO) 79.1 % (42-75); PLATELET COUNT 243 X10'3 (140-440); RED BLOOD COUNT 4.46 X10'6 (4.20-5.60); RED CELL DISTRIBUTION WIDTH 18.7 % (11.5-14.5); WHITE BLOOD COUNT 11.6 X10'3 (4.5-11.0)
[2018-12-06 06:39] LABS: ALBUMIN 3.1 G/DL (3.4-5.0); ANION GAP 8 (8-16); BLOOD UREA NITROGEN 32 MG/DL (7-18); BUN/CREATININE RATIO 33.3 (6.6-38.0); CHLORIDE 99 MMOL/L (99-107); CREATININE 0.96 MG/DL (0.40-0.90); GLUCOSE 105 MG/DL (70-104); POTASSIUM 3.5 MMOL/L (3.5-5.1); SODIUM 143 MMOL/L (135-145); TOTAL CARBON DIOXIDE 36.5 MMOL/L (24-32); eGFR 59 ML/MIN
[2018-12-06 07:00] VITALS: BP 168/78
[2018-12-06 07:06] LABS: ANISOCYTOSIS 2+; PLATELET ESTIMATE NORMAL; POLYCHROMASIA 1+
[2018-12-06 07:07] LABS: STOMATOCYTES FEW
[2018-12-06] MEDS: (Fluticasone/Umeclidin/Vilanter (Trelegy Ellipta 100-62.5-25) 1 PUFF) IH SCH (08:00)
[2018-12-06] MEDS: flecainide 50mg tablet PO SCH ×2 (08:16→20:01)
[2018-12-06] MEDS: calcium carbonate/vitamin D3 tablet PO SCH (08:16)
[2018-12-06] MEDS: prednisone 10mg tablet PO SCH (08:16)
[2018-12-06] MEDS: pantoprazole 40mg Tablet.DR PO SCH (08:16)
[2018-12-06] MEDS: guaiFENesin ER 600mg tablet PO SCH ×2 (08:16→20:00)
[2018-12-06] MEDS: docusate sod 100mg capsule PO SCH ×2 (08:17→19:59)
[2018-12-06] MEDS: lactobacillus rhamnosus 10,000 MMU CELLS/CAPSULE PO SCH ×2 (08:17→19:57)
[2018-12-06] MEDS: apixaban 5mg tablet PO SCH ×2 (08:17→20:00)
[2018-12-06] MEDS: magnesium oxide 400mg tablet PO SCH (08:17)
[2018-12-06] MEDS: metoprolol tartrate 50mg tablet PO SCH ×2 (08:17→20:02)
[2018-12-06] MEDS: furosemide 40mg/4ml inj IV SCH ×2 (08:17→20:04)
[2018-12-06] MEDS: potassium chloride 8mEq ER tablet PO SCH ×2 (08:18→19:59)
[2018-12-06] MEDS: albuterol 2.5 MG/3 ML nebule NEB PRN (08:20)
[2018-12-06] MEDS ORDERED: potassium CL 10mEq/100ml bag 100 ML IV PRN (10:30)
[2018-12-06] MEDS ORDERED: magnesium Cl slow-release 64mg tablet PO PRN (10:30)
[2018-12-06] MEDS ORDERED: magnesium 4gm in 100ml NS 100 ML IV PRN (10:30)
[2018-12-06] MEDS ORDERED: potassium Cl 20 mEq SR tablet PO PRN ×2 (10:30)
[2018-12-06 11:00] VITALS: BP 113/62
--- NOTE | 2018-12-06 13:51 | NUR ---
Dr. Stern at bedside, new orders to start Levaquin 750mg PO daily and duo neb treatment q4 hours.
[2018-12-06] MEDS: levoFLOXACIN 750MG TABLET PO SCH (14:00)
[2018-12-06 15:00] VITALS: BP 112/68
--- NOTE | 2018-12-06 15:31 | NUR ---
paged Dr. Stern regarding home medications. PAGER ID: [phone] MESSAGE: re [phone] Andressa Ospina: Patient has current order for Trelegy, but is unable to bring it in from home. Can this be d/c'd ? [phone] Addendum: 12/06/18 at 1540 by Na Hawk RN per Dr. Stern, order for Trelegy Ellipta can be d/c'd.
[2018-12-06] MEDS: ipratropium/albuterol 3ml nebule NEB SCH ×3 (15:37→23:00)
[2018-12-06 18:00] VITALS: BP 138/68
--- NOTE | 2018-12-06 18:27 | NUR ---
Problems reprioritized. Patient report given, questions answered & plan of care reviewed with MEHDI Montoya.
--- NOTE | 2018-12-06 18:44 | NUR ---
Patient in room PCU 3014. I have received report from MEHDI Monzon and had the opportunity to ask questions and assume patient care.
[2018-12-07 00:22] VITALS: BP 90/55
--- NOTE | 2018-12-07 00:24 | NUR ---
re checked bp and it was 117/82 Addendum: 12/07/18 at 0024 by Jan Hermosillo RN Amended: Links added.
[2018-12-07] MEDS: ipratropium/albuterol 3ml nebule NEB SCH ×6 (02:30→23:07)
[2018-12-07 03:20] VITALS: BP 136/70
[2018-12-07] MEDS: acetaminophen 325mg tablet PO PRN (05:14)
[2018-12-07 06:00] VITALS: BP 115/74
[2018-12-07 06:10] LABS: BASOPHILS % (AUTO) 0.3 % (0-1); EOSINOPHILS % (AUTO) 0.4 % (0-6); HEMATOCRIT 39.1 % (35.0-45.0); HEMOGLOBIN 12.9 g/dl (12.0-16.0); LYMPHOCYTES # (AUTO) 1.2 X10'3 (1.1-4.8); LYMPHOCYTES % (AUTO) 10.8 % (21-51); MEAN CORPUSCULAR HEMOGLOBIN 28.2 PG (27.0-31.0); MEAN CORPUSCULAR HGB CONC 33.1 g/dL (33.0-36.5); MEAN CORPUSCULAR VOLUME 85.2 FL (78-98); MEAN PLATELET VOLUME 8.2 FL (7.4-10.4); MONOCYTES # (AUTO) 0.9 X10'3 (0-0.9); MONOCYTES % (AUTO) 8.1 % (2-12); NEUTROPHILS # (AUTO) 9.1 X10'3 (1.8-7.7); NEUTROPHILS % (AUTO) 80.4 % (42-75); PLATELET COUNT 238 X10'3 (140-440); RED BLOOD COUNT 4.59 X10'6 (4.20-5.60); RED CELL DISTRIBUTION WIDTH 18.4 % (11.5-14.5); WHITE BLOOD COUNT 11.3 X10'3 (4.5-11.0)
--- NOTE | 2018-12-07 06:15 | NUR ---
Patient in room PCU 3014. I have received report from and had the opportunity to ask questions and assume patient care MEHDI Nava
[2018-12-07 06:29] LABS: ALBUMIN 3.1 G/DL (3.4-5.0); ANION GAP 6 (8-16); BLOOD UREA NITROGEN 32 MG/DL (7-18); BUN/CREATININE RATIO 30.8 (6.6-38.0); CALCIUM 9.2 MG/DL (8.5-10.1); CHLORIDE 99 MMOL/L (99-107); CREATININE 1.04 MG/DL (0.40-0.90); GLUCOSE 109 MG/DL (70-104); MAGNESIUM 2.3 MG/DL (1.5-2.4); PHOSPHORUS 4.3 MG/DL (2.3-4.5); POTASSIUM 3.4 MMOL/L (3.5-5.1); SODIUM 142 MMOL/L (135-145); TOTAL CARBON DIOXIDE 36.9 MMOL/L (24-32); eGFR 54 ML/MIN
--- NOTE | 2018-12-07 06:33 | NUR ---
Problems reprioritized. Patient report given, questions answered & plan of care reviewed with MEHDI Carrizales.
[2018-12-07 07:39] LABS: ANISOCYTOSIS 2+; PLATELET ESTIMATE NORMAL; TOTAL CELLS COUNTED 100
[2018-12-07 07:42] LABS: POLYCHROMASIA 1+
[2018-12-07 07:43] LABS: HYPERSEGMENTED NEUTROPHILS 2+
[2018-12-07] MEDS: pantoprazole 40mg Tablet.DR PO SCH (07:49)
[2018-12-07] MEDS: prednisone 10mg tablet PO SCH (07:49)
[2018-12-07] MEDS: potassium chloride 8mEq ER tablet PO SCH ×2 (07:51→20:01)
[2018-12-07] MEDS: magnesium oxide 400mg tablet PO SCH (07:51)
[2018-12-07] MEDS: docusate sod 100mg capsule PO SCH ×2 (07:52→20:01)
[2018-12-07] MEDS: calcium carbonate/vitamin D3 tablet PO SCH (07:53)
[2018-12-07] MEDS: guaiFENesin ER 600mg tablet PO SCH ×2 (07:53→20:01)
[2018-12-07] MEDS: flecainide 50mg tablet PO SCH ×2 (07:53→20:00)
[2018-12-07] MEDS: furosemide 40mg/4ml inj IV SCH ×2 (07:54→19:57)
[2018-12-07] MEDS: metoprolol tartrate 50mg tablet PO SCH ×2 (07:54→20:01)
[2018-12-07] MEDS: lactobacillus rhamnosus 10,000 MMU CELLS/CAPSULE PO SCH ×2 (08:00→19:59)
[2018-12-07] MEDS: apixaban 5mg tablet PO SCH ×2 (08:00→20:00)
[2018-12-07 11:00] VITALS: BP 137/69
[2018-12-07] MEDS: levoFLOXACIN 750MG TABLET PO SCH (11:46)
[2018-12-07 15:00] VITALS: BP 122/75
--- NOTE | 2018-12-07 15:05 | NUR ---
Paged to Dr Stern: PAGER ID: [phone] MESSAGE: #[phone] Andressa Ospina: unable to complete VQ test. Not able to lie flat or sustain 10L O2 for 10 minutes. Sofie [phone]
[2018-12-07] MEDS ORDERED: LEVO500T89 PO (16:00)
[2018-12-07] MEDS ORDERED: GUAI600T45 PO (16:00)
--- NOTE | 2018-12-07 18:30 | NUR ---
Patient in room PCU 3014. I have received report from Sofie Tubbs RN and had the opportunity to ask questions and assume patient care.
--- NOTE | 2018-12-07 18:47 | NUR ---
NOTIFIED PAGER ID: [phone] MESSAGE: Andressa Ospina, [id number]- lactic acid came back increased to 3.3 from 2.9. pt wants to discharge please advise.
[2018-12-07] MEDS ORDERED: normal saline 1000ml 1,000 ML IV ONE (19:20)
[2018-12-07 22:45] VITALS: BP 117/81
[2018-12-07] MEDS: normal saline 1000ml 1,000 ML IV SCH (23:00)
[2018-12-07] MEDS ORDERED: diphenhydrAMINE 25mg capsule PO ONE (23:10)
[2018-12-07] MEDS ORDERED: polyethylene glycol 3350 17gm powd pack PO PRN (23:10)
[2018-12-07] MEDS: prednisone 10mg tablet PO PRN (23:35)
[2018-12-08 02:30] VITALS: BP 107/78
[2018-12-08] MEDS: ipratropium/albuterol 3ml nebule NEB SCH ×3 (03:00→11:00)
[2018-12-08] MEDS: prednisone 10mg tablet PO PRN ×2 (04:59→08:22)
[2018-12-08] MEDS: normal saline 1000ml 1,000 ML IV SCH (05:20)
[2018-12-08 05:43] LABS: BASOPHILS # (AUTO) 0.1 X10'3 (0-0.2); BASOPHILS % (AUTO) 0.6 % (0-1); EOSINOPHILS % (AUTO) 0 % (0-6); HEMATOCRIT 36.3 % (35.0-45.0); HEMOGLOBIN 12.2 g/dl (12.0-16.0); LYMPHOCYTES # (AUTO) 0.7 X10'3 (1.1-4.8); LYMPHOCYTES % (AUTO) 6.5 % (21-51); MEAN CORPUSCULAR HEMOGLOBIN 28.2 PG (27.0-31.0); MEAN CORPUSCULAR HGB CONC 33.5 g/dL (33.0-36.5); MEAN CORPUSCULAR VOLUME 84.2 FL (78-98); MONOCYTES # (AUTO) 0.4 X10'3 (0-0.9); MONOCYTES % (AUTO) 3.7 % (2-12); NEUTROPHILS # (AUTO) 10.2 X10'3 (1.8-7.7); NEUTROPHILS % (AUTO) 89.2 % (42-75); PLATELET COUNT 235 X10'3 (140-440); RED BLOOD COUNT 4.31 X10'6 (4.20-5.60); RED CELL DISTRIBUTION WIDTH 17.9 % (11.5-14.5); WHITE BLOOD COUNT 11.4 X10'3 (4.5-11.0)
[2018-12-08 05:55] LABS: ANION GAP 7 (8-16); BLOOD UREA NITROGEN 29 MG/DL (7-18); BUN/CREATININE RATIO 26.9 (6.6-38.0); CALCIUM 8.5 MG/DL (8.5-10.1); CHLORIDE 102 MMOL/L (99-107); CREATININE 1.08 MG/DL (0.40-0.90); GLUCOSE 174 MG/DL (70-104); MAGNESIUM 2.4 MG/DL (1.5-2.4); PHOSPHORUS 4.1 MG/DL (2.3-4.5); POTASSIUM 4.4 MMOL/L (3.5-5.1); SODIUM 142 MMOL/L (135-145); eGFR 52 ML/MIN
--- NOTE | 2018-12-08 06:23 | NUR ---
Problems reprioritized. Patient report given, questions answered & plan of care reviewed with Na Aleman RN.
[2018-12-08 07:00] VITALS: BP 118/69
--- NOTE | 2018-12-08 07:07 | NUR ---
Patient in room PCU 3014. I have received report from MEHDI Merino and had the opportunity to ask questions and assume patient care.
[2018-12-08] MEDS: furosemide 40mg/4ml inj IV SCH (08:00)
[2018-12-08] MEDS ORDERED: diphenhydrAMINE 25mg capsule PO ONE (08:05)
--- NOTE | 2018-12-08 08:06 | NUR ---
NOTIFIED PAGER ID: [phone] MESSAGE: Bhavesh Crisostomo, [id number]- need a one time order for Benadryl 50mg one time for pre op prophalaxis stat
[2018-12-08] MEDS ORDERED: iohexol 350MG/ML 100ml bottle IV ONE (08:27)
[2018-12-08] MEDS: prednisone 10mg tablet PO SCH (08:30)
--- NOTE | 2018-12-08 10:29 | NUR ---
NOTIFIED PAGER ID: [phone] MESSAGE: Andressa Ospina, [id number]- pt wants you to know, she is back, will leave at 1100 d/c or not, and do you want to speak to her before she leave?
[2018-12-08] MEDS: apixaban 5mg tablet PO SCH (10:33)
[2018-12-08] MEDS: potassium chloride 8mEq ER tablet PO SCH (10:33)
[2018-12-08] MEDS: lactobacillus rhamnosus 10,000 MMU CELLS/CAPSULE PO SCH (10:33)
[2018-12-08] MEDS: docusate sod 100mg capsule PO SCH (10:33)
[2018-12-08 10:34] VITALS: BP_SYST 122
[2018-12-08] MEDS: flecainide 50mg tablet PO SCH (10:34)
[2018-12-08] MEDS: calcium carbonate/vitamin D3 tablet PO SCH (10:34)
[2018-12-08] MEDS: guaiFENesin ER 600mg tablet PO SCH (10:34)
[2018-12-08] MEDS: metoprolol tartrate 50mg tablet PO SCH (10:34)
[2018-12-08] MEDS: magnesium oxide 400mg tablet PO SCH (10:34)
[2018-12-08] MEDS: pantoprazole 40mg Tablet.DR PO SCH (10:34)
[2018-12-08] MEDS: levoFLOXACIN 750MG TABLET PO SCH (10:35)
--- NOTE | 2018-12-08 11:19 | NUR ---
Patient discharged home at 1120 with mother. Patient discharge packet reviewed before signing and being sent with patient. All belongings sent home with patient and RX faxed to [facility] in [facility]. PIV removed with cannula intact and telemetry monitoring d/c'd. Patient was wheeled down by staff and left via private vehicle.
== END 2018-12-08 11:18 | disposition home or self-care (01) | DRG 189 ==
LOC: ER 21:26 → PCU 3S 12-04 00:43 → CMPBEDREQ 12-06 08:40
PROVIDERS: ADMIT Hospitalist; ATTEND Family Medicine
PROC: 4A02XM4 Measurement of Cardiac Total Activity, External Approach (ICD-10-PCS; principal; 2018-12-05)
PROC: 3E033HZ Introduction of Radioactive Substance into Peripheral Vein, Percutaneous Approach (ICD-10-PCS; 2018-12-05)
PROC: CB121ZZ Planar Nuclear Medicine Imaging of Lungs and Bronchi using Technetium 99m (Tc-99m) (ICD-10-PCS; 2018-12-07)
PROC: B32T1ZZ Computerized Tomography (CT Scan) of Left Pulmonary Artery using Low Osmolar Contrast (ICD-10-PCS; 2018-12-08)
PROC: B32S1ZZ Computerized Tomography (CT Scan) of Right Pulmonary Artery using Low Osmolar Contrast (ICD-10-PCS; 2018-12-08)
DX: J96.21 Acute and chronic respiratory failure with hypoxia (principal); I50.33 Acute on chronic diastolic (congestive) heart failure; J44.1 Chronic obstructive pulmonary disease with (acute) exacerbation; C34.91 Malignant neoplasm of unspecified part of right bronchus or lung; I11.0 Hypertensive heart disease with heart failure; I48.0 Paroxysmal atrial fibrillation; E78.00 Pure hypercholesterolemia, unspecified; F31.9 Bipolar disorder, unspecified; F41.9 Anxiety disorder, unspecified; J43.9 Emphysema, unspecified; K21.9 Gastro-esophageal reflux disease without esophagitis; M81.0 Age-related osteoporosis without current pathological fracture; J20.9 Acute bronchitis, unspecified; G89.29 Other chronic pain; M54.9 Dorsalgia, unspecified; I27.81 Cor pulmonale (chronic); Z88.0 Allergy status to penicillin; Z88.2 Allergy status to sulfonamides; Z88.1 Allergy status to other antibiotic agents; Z88.6 Allergy status to analgesic agent; Z91.041 Radiographic dye allergy status; Z82.5 Family history of asthma and other chronic lower respiratory diseases; Z83.3 Family history of diabetes mellitus; Z87.891 Personal history of nicotine dependence; Z98.891 History of uterine scar from previous surgery; Z95.0 Presence of cardiac pacemaker; Z80.1 Family history of malignant neoplasm of trachea, bronchus and lung; Z84.1 Family history of disorders of kidney and ureter; Z79.01 Long term (current) use of anticoagulants; Z85.118 Personal history of other malignant neoplasm of bronchus and lung; Z99.81 Dependence on supplemental oxygen; Z56.0 Unemployment, unspecified
CPT/HCPCS: 36415; 36600; 71045; 71275; 76937; 78452; 80048; 80053; 82803; 83605; 83735; 83880; 84100; 84484; 85018; 85025; 85379; 85610; 85730; 87040; 87081; 93005; 93017; 94640; 94760; 97116; 97161; 97530; 99285; A9500; A9539; G0378; J0280; J1940; J2405; J2785; J2930; J7030; J7512; Q0163; Q9967

== ENCOUNTER 2018-12-10 19:40 | Emergency (ER) | payer MEDICARE, MEDICAID ==
[~2018-12-10] VITALS: Ht 167.6 cm; Wt 103.2 kg
[~2018-12-10 19:40] MED LIST changes: -ALEN70TA15 PEG; -CEFU500T66 PO; +GUAI600T45 PO; +LEVO500T89 PO
[2018-12-10 21:04] LABS: BASOPHILS % (AUTO) 0.2 % (0-1); EOSINOPHILS % (AUTO) 0.4 % (0-6); HEMATOCRIT 34.7 % (35.0-45.0); HEMOGLOBIN 11.5 g/dl (12.0-16.0); LYMPHOCYTES % (AUTO) 9.9 % (21-51); MEAN CORPUSCULAR HEMOGLOBIN 28.3 PG (27.0-31.0); MEAN CORPUSCULAR HGB CONC 33.2 g/dL (33.0-36.5); MEAN CORPUSCULAR VOLUME 85.4 FL (78-98); MEAN PLATELET VOLUME 8.3 FL (7.4-10.4); MONOCYTES # (AUTO) 0.6 X10'3 (0-0.9); MONOCYTES % (AUTO) 6.2 % (2-12); NEUTROPHILS # (AUTO) 8.6 X10'3 (1.8-7.7); NEUTROPHILS % (AUTO) 83.3 % (42-75); PLATELET COUNT 219 X10'3 (140-440); RED BLOOD COUNT 4.07 X10'6 (4.20-5.60); RED CELL DISTRIBUTION WIDTH 18.3 % (11.5-14.5); WHITE BLOOD COUNT 10.3 X10'3 (4.5-11.0)
[2018-12-10 21:15] LABS: PARTIAL THROMBOPLASTIN TIME 26 SECONDS (22-32)
[2018-12-10 21:17] LABS: ALANINE AMINOTRANSFERASE 44 U/L (12-78); ALBUMIN 2.9 G/DL (3.4-5.0); ALBUMIN/GLOBULIN RATIO 0.9 (1.1-1.5); ALKALINE PHOSPHATASE 63 IU/L (46-116); ANION GAP 7 (8-16); ASPARTATE AMINO TRANSFERASE 8 U/L (10-37); BILIRUBIN,TOTAL 0.3 MG/DL (0.1-1.0); BLOOD UREA NITROGEN 28 MG/DL (7-18); BUN/CREATININE RATIO 30.4 (6.6-38.0); CALCIUM 8.3 MG/DL (8.5-10.1); CHLORIDE 102 MMOL/L (99-107); CREATININE 0.92 MG/DL (0.40-0.90); GLUCOSE 246 MG/DL (70-104); POTASSIUM 3.4 MMOL/L (3.5-5.1); SODIUM 142 MMOL/L (135-145); TOTAL CARBON DIOXIDE 33.3 MMOL/L (24-32); TOTAL PROTEIN 6.1 G/DL (6.4-8.2); eGFR 62 ML/MIN
[2018-12-10] MEDS ORDERED: ipratropium/albuterol 3ml nebule NEB ONE (21:25)
[2018-12-10] MEDS ORDERED: dexamethasone sod phosphate 10mg/ml inj PO STA (21:25)
--- NOTE | 2018-12-10 21:43 | NUR ---
RT at bedside
--- NOTE | 2018-12-10 23:19 | NUR ---
PT IS RESTING QUIETLY ON GURNEY, RESP EVEN AND UNLABORED, WAITING FOR GEOSPATIAL SPECIALIST, FAMILY AT BEDSIDE
[2018-12-11 00:23] VITALS: BP 126/79
[2018-12-12] MEDS ORDERED: PRED5TAB PO (14:17)
[2018-12-12] MEDS ORDERED: NITR0.4T48 SL (19:06)
[2018-12-12] MEDS ORDERED: LACT1CAP65 PO (19:07)
[2018-12-12] MEDS ORDERED: ALBU18HF2 INH (19:07)
== END 2018-12-11 00:24 | disposition home or self-care (01) ==
LOC: ER 19:41
DX: M79.605 Pain in left leg (principal); M79.604 Pain in right leg; J44.9 Chronic obstructive pulmonary disease, unspecified; I48.91 Unspecified atrial fibrillation; I11.0 Hypertensive heart disease with heart failure; I50.9 Heart failure, unspecified; K21.9 Gastro-esophageal reflux disease without esophagitis; M81.0 Age-related osteoporosis without current pathological fracture; F41.9 Anxiety disorder, unspecified; F31.9 Bipolar disorder, unspecified; Z95.0 Presence of cardiac pacemaker; Z98.890 Other specified postprocedural states; Z88.0 Allergy status to penicillin; Z88.5 Allergy status to narcotic agent; Z88.1 Allergy status to other antibiotic agents; Z88.8 Allergy status to other drugs, medicaments and biological substances; Z79.899 Other long term (current) drug therapy; Z87.891 Personal history of nicotine dependence; Z56.0 Unemployment, unspecified
CPT/HCPCS: 36415; 71045; 80053; 83880; 84484; 85025; 85610; 85730; 93005; 93970; 94640; 94760; 99284; J1100

== ENCOUNTER 2018-12-12 11:37 | Observation (INO) | payer MEDICARE, MEDICAID ==
[~2018-12-12] VITALS: Ht 167.6 cm; Wt 105.0 kg
[2018-12-12] MEDS ORDERED: LORazepam 2 mg/ml vial IV ONE (12:10)
[2018-12-12] MEDS ORDERED: methylPREDNISolone sod succ 125mg/2ml vial IV ONE (12:10)
[2018-12-12 12:56] LABS: BASOPHILS % (AUTO) 0.2 % (0-1); EOSINOPHILS % (AUTO) 0.1 % (0-6); HEMATOCRIT 35.8 % (35.0-45.0); HEMOGLOBIN 11.7 g/dl (12.0-16.0); LYMPHOCYTES # (AUTO) 0.7 X10'3 (1.1-4.8); LYMPHOCYTES % (AUTO) 4.2 % (21-51); MEAN CORPUSCULAR HGB CONC 32.7 g/dL (33.0-36.5); MEAN CORPUSCULAR VOLUME 85.8 FL (78-98); MEAN PLATELET VOLUME 8.4 FL (7.4-10.4); MONOCYTES # (AUTO) 0.3 X10'3 (0-0.9); NEUTROPHILS # (AUTO) 15.7 X10'3 (1.8-7.7); NEUTROPHILS % (AUTO) 93.5 % (42-75); PLATELET COUNT 227 X10'3 (140-440); RED BLOOD COUNT 4.17 X10'6 (4.20-5.60); RED CELL DISTRIBUTION WIDTH 18.7 % (11.5-14.5); WHITE BLOOD COUNT 16.8 X10'3 (4.5-11.0)
[2018-12-12 13:14] LABS: ALANINE AMINOTRANSFERASE 50 U/L (12-78); ALBUMIN 3.1 G/DL (3.4-5.0); ALBUMIN/GLOBULIN RATIO 0.9 (1.1-1.5); ALKALINE PHOSPHATASE 62 IU/L (46-116); ANION GAP 10 (8-16); ASPARTATE AMINO TRANSFERASE 23 U/L (10-37); BILIRUBIN,TOTAL 0.4 MG/DL (0.1-1.0); BLOOD UREA NITROGEN 28 MG/DL (7-18); BUN/CREATININE RATIO 21.7 (6.6-38.0); CALCIUM 8.5 MG/DL (8.5-10.1); CHLORIDE 99 MMOL/L (99-107); CREATININE 1.29 MG/DL (0.40-0.90); GLUCOSE 339 MG/DL (70-104); POTASSIUM 3.4 MMOL/L (3.5-5.1); SODIUM 138 MMOL/L (135-145); TOTAL CARBON DIOXIDE 29.2 MMOL/L (24-32); TOTAL PROTEIN 6.5 G/DL (6.4-8.2); eGFR 42 ML/MIN
[2018-12-12] MEDS ORDERED: normal saline 1000ml 1,000 ML IV ONE (13:30)
[2018-12-12] MEDS ORDERED: azithromycin/NS 500mg/250ml 250 ML IV ONE (13:30)
[2018-12-12] MEDS ORDERED: CefTRIAXone/D5W-Rocephin 1gm 50 ML IV ONE (13:30)
[2018-12-12] MEDS ORDERED: potassium CL 10mEq/100ml bag 100 ML IV PRN ×2 (13:45)
[2018-12-12] MEDS ORDERED: acetaminophen 325mg tablet PO PRN (13:45)
[2018-12-12] MEDS ORDERED: magnesium 4gm in 100ml NS 100 ML IV PRN (13:45)
[2018-12-12] MEDS ORDERED: potassium Cl 20 mEq SR tablet PO PRN (13:45)
[2018-12-12] MEDS ORDERED: mag hydrox/Alum hydrox/simeth 30ml oral suspension PO PRN (13:45)
[2018-12-12] MEDS ORDERED: magnesium 2GM in 50ml NS 50 ML IV PRN (13:45)
[2018-12-12] MEDS ORDERED: ipratropium/albuterol 3ml nebule NEB PRN (13:45)
[2018-12-12] MEDS ORDERED: magnesium hydroxide 30ml (MOM) UD suspension PO PRN (13:45)
[2018-12-12] MEDS ORDERED: magnesium Cl slow-release 64mg tablet PO PRN (13:45)
--- NOTE | 2018-12-12 14:06 | NUR ---
relieving RN for lunch, pt is sitting in chair eating lunch, kenneth well, no n/v, isolation cart outside of room.
[2018-12-12] MEDS ORDERED: PRED5TAB PO (14:17)
--- NOTE | 2018-12-12 14:17 | NUR ---
confirmed med list with pt, med rec complete
[2018-12-12 16:00] VITALS: BP 131/61
[2018-12-12] MEDS: potassium Cl 20 mEq SR tablet PO PRN (16:17)
[2018-12-12 18:00] VITALS: BP 152/71
--- NOTE | 2018-12-12 18:42 | NUR ---
Problems reprioritized. Patient report given, questions answered & plan of care reviewed with Oliverio HARDING.
[2018-12-12] MEDS ORDERED: NITR0.4T48 SL (19:06)
[2018-12-12] MEDS ORDERED: LACT1CAP65 PO (19:07)
[2018-12-12] MEDS ORDERED: ALBU18HF2 INH (19:07)
[2018-12-12] MEDS: ipratropium/albuterol 3ml nebule NEB SCH (19:21)
[2018-12-12] MEDS ORDERED: LORazepam 1 MG tablet PO PRN (20:50)
[2018-12-12] MEDS ORDERED: nitroGLYCERIN 0.4mg SUBLingual tab SL PRN (20:50)
[2018-12-12 22:00] VITALS: BP 131/60
[2018-12-13] MEDS: potassium Cl 20 mEq SR tablet PO PRN (05:02)
[2018-12-13 06:29] LABS: ANION GAP 8 (8-16); BLOOD UREA NITROGEN 20 MG/DL (7-18); CALCIUM 8.2 MG/DL (8.5-10.1); CHLORIDE 105 MMOL/L (99-107); CREATININE 0.77 MG/DL (0.40-0.90); GLUCOSE 144 MG/DL (70-104); MAGNESIUM 2.2 MG/DL (1.5-2.4); POTASSIUM 4.1 MMOL/L (3.5-5.1); SODIUM 144 MMOL/L (135-145); TOTAL CARBON DIOXIDE 30.6 MMOL/L (24-32); eGFR 76 ML/MIN
--- NOTE | 2018-12-13 06:29 | NUR ---
Problems reprioritized. Patient report given, questions answered & plan of care reviewed with Sarah HARDING.
[2018-12-13 06:46] LABS: BASOPHILS % (AUTO) 0.2 % (0-1); EOSINOPHILS % (AUTO) 0 % (0-6); HEMATOCRIT 33.8 % (35.0-45.0); HEMOGLOBIN 11.3 g/dl (12.0-16.0); LYMPHOCYTES # (AUTO) 0.9 X10'3 (1.1-4.8); LYMPHOCYTES % (AUTO) 9.3 % (21-51); MEAN CORPUSCULAR HEMOGLOBIN 28.6 PG (27.0-31.0); MEAN CORPUSCULAR HGB CONC 33.5 g/dL (33.0-36.5); MEAN CORPUSCULAR VOLUME 85.3 FL (78-98); MEAN PLATELET VOLUME 8.3 FL (7.4-10.4); MONOCYTES # (AUTO) 0.6 X10'3 (0-0.9); MONOCYTES % (AUTO) 6.2 % (2-12); NEUTROPHILS # (AUTO) 7.8 X10'3 (1.8-7.7); NEUTROPHILS % (AUTO) 84.3 % (42-75); PLATELET COUNT 205 X10'3 (140-440); RED BLOOD COUNT 3.96 X10'6 (4.20-5.60); WHITE BLOOD COUNT 9.2 X10'3 (4.5-11.0)
[2018-12-13 07:10] VITALS: BP 120/71
[2018-12-13] MEDS ORDERED: pantoprazole 40mg Tablet.DR PO SCH (07:30)
[2018-12-13] MEDS ORDERED: metoprolol tartrate 50mg tablet PO SCH (08:00)
[2018-12-13] MEDS ORDERED: lactobacillus rhamnosus 10,000 MMU CELLS/CAPSULE PO SCH (08:00)
[2018-12-13] MEDS ORDERED: budesonide 0.5mg/2ml UD nebule IH SCH (08:00)
[2018-12-13] MEDS ORDERED: apixaban 5mg tablet PO SCH (08:00)
[2018-12-13] MEDS ORDERED: furosemide 40mg/4ml inj IV SCH (08:00)
[2018-12-13] MEDS ORDERED: potassium chloride 8mEq ER tablet PO SCH (08:00)
[2018-12-13] MEDS ORDERED: predniSONE 20 mg tablet PO SCH (08:00)
[2018-12-13] MEDS ORDERED: flecainide 50mg tablet PO SCH (08:00)
[2018-12-13] MEDS ORDERED: K and/or MAG REPLACEMENT MC SCH (08:00)
[2018-12-13] MEDS ORDERED: MAGNESIUM OXIDE 100 MG PO SCH (08:00)
[2018-12-13] MEDS ORDERED: calcium carbonate/vitamin D3 tablet PO SCH (08:00)
[2018-12-13] MEDS: ipratropium/albuterol 3ml nebule NEB SCH ×2 (08:39→12:40)
[2018-12-13 11:55] VITALS: BP 126/64
== END 2018-12-13 13:10 | disposition home or self-care (01) ==
LOC: ER 11:37 → ED HOLD 14:13 → ORTHO 4S 15:50
PROVIDERS: ADMIT Hospitalist; ATTEND Hospitalist
DX: J44.1 Chronic obstructive pulmonary disease with (acute) exacerbation (principal); R09.02 Hypoxemia; R19.7 Diarrhea, unspecified; I20.9 Angina pectoris, unspecified; I48.91 Unspecified atrial fibrillation; I11.0 Hypertensive heart disease with heart failure; I50.33 Acute on chronic diastolic (congestive) heart failure; I50.82 Biventricular heart failure; E78.00 Pure hypercholesterolemia, unspecified; K21.9 Gastro-esophageal reflux disease without esophagitis; G89.4 Chronic pain syndrome; M81.0 Age-related osteoporosis without current pathological fracture; F31.9 Bipolar disorder, unspecified; F41.9 Anxiety disorder, unspecified; Z85.118 Personal history of other malignant neoplasm of bronchus and lung; Z87.01 Personal history of pneumonia (recurrent); Z92.3 Personal history of irradiation; Z95.0 Presence of cardiac pacemaker; Z79.52 Long term (current) use of systemic steroids; Z79.01 Long term (current) use of anticoagulants; Z79.899 Other long term (current) drug therapy; Z88.0 Allergy status to penicillin; Z88.5 Allergy status to narcotic agent; Z88.1 Allergy status to other antibiotic agents; Z88.2 Allergy status to sulfonamides; Z88.8 Allergy status to other drugs, medicaments and biological substances; Z91.048 Other nonmedicinal substance allergy status
CPT/HCPCS: 36415; 71046; 80048; 80053; 83605; 83735; 83880; 84484; 85025; 87040; 87081; 93005; 94640; 94760; 96365; 96367; 96375; 97116; 97162; 99284; G0378; J0456; J0696; J1940; J2060; J2930; J7512; J7626

== ENCOUNTER 2019-01-03 15:51 | Inpatient (IN) | payer MEDICARE, MEDICAID ==
[~2019-01-03] VITALS: Ht 167.6 cm; Wt 110.0 kg
[~2019-01-03 15:51] MED LIST changes: -ALBU18HF2 IH; +ALBU18HF2 INH; -GUAI600T45 PO; -LACT1CAP26 PO; +LACT1CAP65 PO; -LEVA1.2544 IH; -LEVO500T89 PO; +NITR0.4T48 SL; -PRED20TA PO; +PRED5TAB PO
[2019-01-03 16:31] LABS: BASOPHILS % (AUTO) 0.5 % (0-1); EOSINOPHILS % (AUTO) 0.6 % (0-6); HEMATOCRIT 33.8 % (35.0-45.0); HEMOGLOBIN 11.2 g/dl (12.0-16.0); LYMPHOCYTES # (AUTO) 1.9 X10'3 (1.1-4.8); LYMPHOCYTES % (AUTO) 23.5 % (21-51); MEAN CORPUSCULAR HGB CONC 33.2 g/dL (33.0-36.5); MEAN CORPUSCULAR VOLUME 84.3 FL (78-98); MEAN PLATELET VOLUME 8.1 FL (7.4-10.4); MONOCYTES # (AUTO) 0.6 X10'3 (0-0.9); NEUTROPHILS # (AUTO) 5.5 X10'3 (1.8-7.7); NEUTROPHILS % (AUTO) 67.4 % (42-75); PLATELET COUNT 265 X10'3 (140-440); RED BLOOD COUNT 4.01 X10'6 (4.20-5.60); RED CELL DISTRIBUTION WIDTH 18.3 % (11.5-14.5); WHITE BLOOD COUNT 8.1 X10'3 (4.5-11.0)
[2019-01-03 16:35] LABS: ALANINE AMINOTRANSFERASE 28 U/L (12-78); ALBUMIN 3.1 G/DL (3.4-5.0); ALKALINE PHOSPHATASE 64 IU/L (46-116); ANION GAP 7 (8-16); ASPARTATE AMINO TRANSFERASE 21 U/L (10-37); BILIRUBIN,TOTAL 0.3 MG/DL (0.1-1.0); BLOOD UREA NITROGEN 16 MG/DL (7-18); BUN/CREATININE RATIO 15.1 (6.6-38.0); CALCIUM 8.8 MG/DL (8.5-10.1); CHLORIDE 104 MMOL/L (99-107); CREATININE 1.06 MG/DL (0.40-0.90); GLUCOSE 133 MG/DL (70-104); POTASSIUM 3.5 MMOL/L (3.5-5.1); SODIUM 144 MMOL/L (135-145); TOTAL CARBON DIOXIDE 33.3 MMOL/L (24-32); TOTAL PROTEIN 6.2 G/DL (6.4-8.2); eGFR 53 ML/MIN
[2019-01-03] MEDS ORDERED: ipratropium/albuterol 3ml nebule NEB ONE (17:40)
[2019-01-03 18:21] LABS: ABG BASE EXCESS 4.5 mmol/L (-2.0-3.0); ABG HCO3 29.5 mmol/L (22.0-26.0); ABG OXYGEN SATURATION 86.1 % (95-98); ABG PCO2 (T) 45.8 mmHg (35.0-45.0); ABG PH (T) 7.427 (7.350-7.450); ABG PO2 (T) 52.6 mmHg (83-108); ALLEN'S TEST Positive; FCOHb 0.6 % (0.5-1.5); FLOW 4 L/min; FMetHb 0.1 % (0.3-1.12); FO2Hb 85.5 % (94-100); TOTAL HEMOGLOBIN 11.3 G/dl (12.0-16.0)
[2019-01-03] MEDS ORDERED: mag hydrox/Alum hydrox/simeth 30ml oral suspension PO PRN (19:35)
[2019-01-03] MEDS ORDERED: magnesium hydroxide 30ml (MOM) UD suspension PO PRN (19:35)
[2019-01-03] MEDS ORDERED: ondansetron/PF 4mg/2ml inj IV PRN (19:35)
[2019-01-03] MEDS ORDERED: PRED10TA PO (19:40)
--- NOTE | 2019-01-03 20:33 | NUR ---
Pt self adminstered home medications: Eliquis, metoprolol, Flecainide.
--- NOTE | 2019-01-03 21:09 | NUR ---
Rec'd report from MEHDI Guaman in the ER.
[2019-01-03] MEDS: furosemide 40mg/4ml inj IV SCH (21:16)
--- NOTE | 2019-01-03 21:50 | NUR ---
Patient has arrived from the ER and is sitting in a bedside recliner, she is very SOB and sating 90% on 3L NC. A bedside commode is at bedside as she was just given Lasix. She is A&O x3, GARRETT and is appropriate.
[2019-01-03 22:00] VITALS: BP 135/57
[2019-01-03] MEDS ORDERED: albuterol 2.5 MG/3 ML nebule NEB PRN (23:00)
[2019-01-03] MEDS: acetaminophen 325mg tablet PO PRN (23:46)
[2019-01-04] VITALS (7 sets, daily range): BP systolic 108–138; BP diastolic 49–64
--- NOTE | 2019-01-04 04:51 | NUR ---
Patient has been sating 90% on 3L through the night, when she ambulates or is anxious she desat to mid 80's. I called Dr. London as I and respiratory as I think she may need Bipap. Per MD have respiratory eval patient and give her 2mg Morphine, I advised the patient is allergic to Morphine. MD would like me to ask what reaction pt has to Morphine and call him back.
--- NOTE | 2019-01-04 05:22 | NUR ---
Advised Dr. London that patient vomits when she takes Morphine. Respiratory evaluated and gave breathing treatment, patient responded well and is resting comfortably and SpO2 is 91% on 4L. Dr. London is ok with this.
--- NOTE | 2019-01-04 06:07 | NUR ---
Problems reprioritized. Patient report given, questions answered & plan of care reviewed with MEHDI Urias.
--- NOTE | 2019-01-04 06:07 | NUR ---
Patient in room PCU 3023. I have received report from Tabitha HARDING and had the opportunity to ask questions and assume patient care.
--- NOTE | 2019-01-04 06:15 | NUR ---
Patient in room PCU 3023. I have received report from MEHDI Lu and had the opportunity to ask questions and assume patient care.
[2019-01-04 06:17] LABS: BASOPHILS # (AUTO) 0.1 X10'3 (0-0.2); BASOPHILS % (AUTO) 0.8 % (0-1); EOSINOPHILS # (AUTO) 0.1 X10'3 (0-0.9); EOSINOPHILS % (AUTO) 1.8 % (0-6); HEMATOCRIT 33.1 % (35.0-45.0); HEMOGLOBIN 11.1 g/dl (12.0-16.0); LYMPHOCYTES % (AUTO) 29.7 % (21-51); MEAN CORPUSCULAR HEMOGLOBIN 28.6 PG (27.0-31.0); MEAN CORPUSCULAR HGB CONC 33.5 g/dL (33.0-36.5); MEAN CORPUSCULAR VOLUME 85.3 FL (78-98); MONOCYTES # (AUTO) 0.8 X10'3 (0-0.9); MONOCYTES % (AUTO) 12.2 % (2-12); NEUTROPHILS # (AUTO) 3.8 X10'3 (1.8-7.7); NEUTROPHILS % (AUTO) 55.5 % (42-75); PLATELET COUNT 227 X10'3 (140-440); RED BLOOD COUNT 3.89 X10'6 (4.20-5.60); RED CELL DISTRIBUTION WIDTH 18.7 % (11.5-14.5); WHITE BLOOD COUNT 6.8 X10'3 (4.5-11.0)
[2019-01-04 06:27] LABS: ALBUMIN 3.2 G/DL (3.4-5.0); ANION GAP 6 (8-16); BLOOD UREA NITROGEN 20 MG/DL (7-18); BUN/CREATININE RATIO 23.5 (6.6-38.0); CALCIUM 8.8 MG/DL (8.5-10.1); CHLORIDE 103 MMOL/L (99-107); CREATININE 0.85 MG/DL (0.40-0.90); GLUCOSE 105 MG/DL (70-104); POTASSIUM 3.2 MMOL/L (3.5-5.1); SODIUM 143 MMOL/L (135-145); TOTAL CARBON DIOXIDE 34.3 MMOL/L (24-32); eGFR 68 ML/MIN
[2019-01-04 06:58] LABS: ANISOCYTOSIS 2+; PLATELET ESTIMATE NORMAL
--- NOTE | 2019-01-04 07:09 | NUR ---
Paged Dr. Hernandez re 2 Lasix orders. PAGER ID: [phone] MESSAGE: Ollie Ospina in [id number] has Lasix ordered twice at 0800. Please advise. Thanks! Bridgett HARDING [phone] Addendum: 01/04/19 at 0750 by Lauren Powers RN Dr. Hernandez called back re Lasix. Orders received to stop PO dose of Lasix, begin electrolyte replacement protocol & to check Mg levels for today.
[2019-01-04] MEDS: lactobacillus rhamnosus 10,000 MMU CELLS/CAPSULE PO SCH (07:28)
[2019-01-04] MEDS: potassium chloride 8mEq ER tablet PO SCH ×2 (07:28→19:29)
[2019-01-04] MEDS: pantoprazole 40mg Tablet.DR PO SCH (07:28)
[2019-01-04] MEDS: calcium carbonate/vitamin D3 tablet PO SCH (07:29)
[2019-01-04] MEDS: flecainide 50mg tablet PO SCH ×2 (07:29→19:30)
[2019-01-04] MEDS: apixaban 5mg tablet PO SCH ×2 (07:29→19:30)
[2019-01-04] MEDS: metoprolol tartrate 50mg tablet PO SCH ×2 (07:31→19:29)
[2019-01-04] MEDS ORDERED: potassium Cl 20 mEq SR tablet PO PRN (07:45)
[2019-01-04] MEDS ORDERED: magnesium 2GM in 50ml NS 50 ML IV PRN (07:45)
[2019-01-04] MEDS ORDERED: potassium CL 10mEq/100ml bag 100 ML IV PRN (07:45)
[2019-01-04] MEDS ORDERED: (Fluticasone/Umeclidin/Vilanter (Trelegy Ellipta 100-62.5-25) IH SCH (08:00)
[2019-01-04] MEDS: MAGNESIUM OXIDE 100 MG PO SCH (08:00)
[2019-01-04] MEDS ORDERED: furosemide 40mg tablet PO SCH (08:00)
[2019-01-04] MEDS: furosemide 40mg/4ml inj IV SCH (08:01)
[2019-01-04] MEDS: potassium Cl 20 mEq SR tablet PO PRN ×3 (08:01→16:36)
--- NOTE | 2019-01-04 08:37 | NUR ---
Paged RT for PRN breathing treatment per pt's request.
--- NOTE | 2019-01-04 09:38 | NUR ---
Messaged pharmacy regarding home med, pt does not have on person.
[2019-01-04] MEDS: predniSONE 20 mg tablet PO SCH (09:42)
[2019-01-04] MEDS: ipratropium/albuterol 3ml nebule NEB SCH ×3 (09:50→20:01)
[2019-01-04] MEDS ORDERED: FLU VACC QS2019-20 36MOS UP/PF 60 MCG/0.5 ML SYRINGE IMVAC ONE (10:00)
--- NOTE | 2019-01-04 13:01 | NUR ---
Educated on the need to have regular bowel movements, per pt "I can't use this thing to go to the bathroom" referring to the bedside commode. Educated on how going up to the bathroom is not a good idea, due to her O2 saturation being so low. Per box attacher RN, she desatted to the 70's when walking from the bed to the bathroom. Encouraged pt to at least try having a bowel movement in the bedside commode (I told her I would shut the curtains and the door to the room, as well as stand outside the door). Pt refused, stated "I'm going to get constipated because of this". Educated on the need to at least try the bedside commode. Pt again refused. Will continue to educate and encourage use of bedside commode
--- NOTE | 2019-01-04 13:30 | NUR ---
Dr. Hernandez at the bedside. Dr Hernandez and Price educated pt on the dangers of not having regular bowel movement. Dr. Hernandez educated that not having regular bowel movements were detrimental to health. Encouraged pt to use bedside commode. Pt refused. RN and Dr. Hernandez stated that they were uncomfortable getting the pt up to the toilet with portable O2, due to the pts tendency to desatt to the 70's with any sort of exertion or movement even with supplemental O2. Will continue to encourage to use bedside commode and re-educate.
--- NOTE | 2019-01-04 17:11 | NUR ---
Paged Dr. Hernandez regarding new orders PAGER ID: [phone] MESSAGE: Shanel HARDING [id number]. Andressa Ospina Rm [id number]. No order for PT to consult, please advise. no DVT prophylaxis present. Additionally, pt wants an order for colace, states it is what she takes at home. Thanks!
--- NOTE | 2019-01-04 17:38 | NUR ---
Orientee documentation: I have reviewed and agree with all interventions, assessments performed and documented by MEHDI Ugarte.
--- NOTE | 2019-01-04 18:26 | NUR ---
Problems reprioritized. Patient report given, questions answered & plan of care reviewed with MEHDI Lu.
--- NOTE | 2019-01-04 18:26 | NUR ---
Problems reprioritized. Patient report given, questions answered & plan of care reviewed with Tabitha HARDING.
--- NOTE | 2019-01-04 18:27 | NUR ---
Patient in room PCU 3023. I have received report from MEHDI Urias and had the opportunity to ask questions and assume patient care. Patient dozing in bedside recliner, Jose uJan&Leanna and GERRY. She is still very SOB and states she needs to have a BM, but can't use bedside commode. Again it was reinforced that she desats too much with exertion and it is not safe. I will continue to monitor.
[2019-01-04] MEDS: docusate sod 100mg capsule PO SCH (19:28)
[2019-01-04] MEDS: cefepime 2g/NS 100ml ADVANTAGE 100 ML IV SCH (19:32)
--- NOTE | 2019-01-04 23:31 | NUR ---
Per Dr. London ok to continue Tele w/cont pulseox
[2019-01-05] MEDS ORDERED: albuterol 2.5 MG/3 ML nebule NEB PRN (01:45)
[2019-01-05 03:33] VITALS: BP 130/53
[2019-01-05] MEDS: acetaminophen 325mg tablet PO PRN (04:48)
[2019-01-05 05:26] LABS: BASOPHILS # (AUTO) 0.1 X10'3 (0-0.2); BASOPHILS % (AUTO) 0.8 % (0-1); EOSINOPHILS # (AUTO) 0.1 X10'3 (0-0.9); EOSINOPHILS % (AUTO) 0.7 % (0-6); HEMATOCRIT 33.6 % (35.0-45.0); HEMOGLOBIN 11.3 g/dl (12.0-16.0); LYMPHOCYTES # (AUTO) 1.6 X10'3 (1.1-4.8); LYMPHOCYTES % (AUTO) 21.4 % (21-51); MEAN CORPUSCULAR HEMOGLOBIN 28.9 PG (27.0-31.0); MEAN CORPUSCULAR HGB CONC 33.6 g/dL (33.0-36.5); MEAN CORPUSCULAR VOLUME 85.9 FL (78-98); MEAN PLATELET VOLUME 8.3 FL (7.4-10.4); MONOCYTES # (AUTO) 0.9 X10'3 (0-0.9); MONOCYTES % (AUTO) 11.8 % (2-12); NEUTROPHILS % (AUTO) 65.3 % (42-75); PLATELET COUNT 153 X10'3 (140-440); RED BLOOD COUNT 3.91 X10'6 (4.20-5.60); RED CELL DISTRIBUTION WIDTH 18.4 % (11.5-14.5); WHITE BLOOD COUNT 7.6 X10'3 (4.5-11.0)
[2019-01-05 05:38] LABS: ALBUMIN 3.1 G/DL (3.4-5.0); ANION GAP 10 (8-16); BLOOD UREA NITROGEN 18 MG/DL (7-18); BUN/CREATININE RATIO 25.4 (6.6-38.0); CALCIUM 8.7 MG/DL (8.5-10.1); CHLORIDE 105 MMOL/L (99-107); CREATININE 0.71 MG/DL (0.40-0.90); GLUCOSE 116 MG/DL (70-104); MAGNESIUM 2.1 MG/DL (1.5-2.4); POTASSIUM 4.1 MMOL/L (3.5-5.1); SODIUM 142 MMOL/L (135-145); TOTAL CARBON DIOXIDE 27.5 MMOL/L (24-32); eGFR 84 ML/MIN
[2019-01-05 06:00] VITALS: BP 114/43
--- NOTE | 2019-01-05 06:00 | NUR ---
Patient in room PCU 3023. I have received report from Tabitha HARDING and had the opportunity to ask questions and assume patient care.
--- NOTE | 2019-01-05 06:14 | NUR ---
Problems reprioritized. Patient report given, questions answered & plan of care reviewed with MEHDI Monzon.
[2019-01-05] MEDS: ipratropium/albuterol 3ml nebule NEB SCH ×3 (07:59→19:36)
[2019-01-05] MEDS: MAGNESIUM OXIDE 100 MG PO SCH (08:00)
[2019-01-05] MEDS: cefepime 2g/NS 100ml ADVANTAGE 100 ML IV SCH ×2 (08:00→20:39)
[2019-01-05] MEDS: furosemide 40mg/4ml inj IV SCH (08:49)
[2019-01-05] MEDS: calcium carbonate/vitamin D3 tablet PO SCH (08:52)
[2019-01-05] MEDS: docusate sod 100mg capsule PO SCH ×2 (08:52→20:35)
[2019-01-05] MEDS: potassium chloride 8mEq ER tablet PO SCH ×2 (08:52→20:35)
[2019-01-05] MEDS: flecainide 50mg tablet PO SCH ×2 (08:52→20:38)
[2019-01-05] MEDS: apixaban 5mg tablet PO SCH ×2 (08:52→20:36)
[2019-01-05] MEDS: predniSONE 20 mg tablet PO SCH (08:53)
[2019-01-05] MEDS: lactobacillus rhamnosus 10,000 MMU CELLS/CAPSULE PO SCH (08:53)
[2019-01-05] MEDS: pantoprazole 40mg Tablet.DR PO SCH (08:53)
[2019-01-05] MEDS: metoprolol tartrate 50mg tablet PO SCH ×2 (08:54→20:35)
[2019-01-05] MEDS: montelukast 10mg tablet PO SCH (10:50)
[2019-01-05 11:00] VITALS: BP 116/63
[2019-01-05 18:00] VITALS: BP 126/67
--- NOTE | 2019-01-05 18:45 | NUR ---
Patient in room PCU 3023. I have received report from MEHDI Avila and had the opportunity to ask questions and assume patient care. Pt sitting up in chair at bedside and A&Ox4.
--- NOTE | 2019-01-05 18:48 | NUR ---
Problems reprioritized. Patient report given, questions answered & plan of care reviewed with Tabitha HARDING and Radha RN.
--- NOTE | 2019-01-05 18:50 | NUR ---
Patient in room PCU 3023. I have received report from MEHDI Avila and had the opportunity to ask questions and assume patient care. Patient is sitting up in bedside recliner, she is A&O x3 and GARRETT. Still reports SOB, worse with exertion, I will continue to monitor.
[2019-01-05] MEDS: furosemide 20 MG/2 ML vial IV SCH ×2 (20:38→21:00)
[2019-01-05 22:00] VITALS: BP 120/70
[2019-01-06 02:00] VITALS: BP 118/57
[2019-01-06 06:00] VITALS: BP 128/59
[2019-01-06 06:09] LABS: BASOPHILS # (AUTO) 0.1 X10'3 (0-0.2); BASOPHILS % (AUTO) 0.9 % (0-1); EOSINOPHILS # (AUTO) 0.1 X10'3 (0-0.9); EOSINOPHILS % (AUTO) 1.1 % (0-6); HEMATOCRIT 32.3 % (35.0-45.0); HEMOGLOBIN 10.9 g/dl (12.0-16.0); LYMPHOCYTES # (AUTO) 1.7 X10'3 (1.1-4.8); LYMPHOCYTES % (AUTO) 20.4 % (21-51); MEAN CORPUSCULAR HEMOGLOBIN 28.5 PG (27.0-31.0); MEAN CORPUSCULAR HGB CONC 33.6 g/dL (33.0-36.5); MONOCYTES # (AUTO) 0.9 X10'3 (0-0.9); MONOCYTES % (AUTO) 11.3 % (2-12); NEUTROPHILS # (AUTO) 5.5 X10'3 (1.8-7.7); NEUTROPHILS % (AUTO) 66.3 % (42-75); PLATELET COUNT 259 X10'3 (140-440); RED CELL DISTRIBUTION WIDTH 18.6 % (11.5-14.5); WHITE BLOOD COUNT 8.2 X10'3 (4.5-11.0)
--- NOTE | 2019-01-06 06:10 | NUR ---
Problems reprioritized. Patient report given, questions answered & plan of care reviewed with MEHDI Avila.
[2019-01-06 06:19] LABS: ALBUMIN 3.2 G/DL (3.4-5.0); ANION GAP 8 (8-16); BLOOD UREA NITROGEN 24 MG/DL (7-18); CHLORIDE 103 MMOL/L (99-107); GLUCOSE 106 MG/DL (70-104); MAGNESIUM 2.1 MG/DL (1.5-2.4); POTASSIUM 3.5 MMOL/L (3.5-5.1); SODIUM 143 MMOL/L (135-145); TOTAL CARBON DIOXIDE 32.5 MMOL/L (24-32); eGFR 73 ML/MIN
--- NOTE | 2019-01-06 06:25 | NUR ---
Patient in room PCU 3023. I have received report from Tabitha RN and Radha RN and had the opportunity to ask questions and assume patient care.
[2019-01-06] MEDS: ipratropium/albuterol 3ml nebule NEB SCH ×3 (08:32→20:12)
[2019-01-06] MEDS: acetaminophen 325mg tablet PO PRN ×2 (08:34→18:48)
[2019-01-06] MEDS: furosemide 40mg/4ml inj IV SCH (08:34)
[2019-01-06] MEDS: metoprolol tartrate 50mg tablet PO SCH ×2 (08:36→20:42)
[2019-01-06] MEDS: cefepime 2g/NS 100ml ADVANTAGE 100 ML IV SCH ×2 (08:37→20:43)
[2019-01-06] MEDS: montelukast 10mg tablet PO SCH (08:38)
[2019-01-06] MEDS: predniSONE 20 mg tablet PO SCH (08:38)
[2019-01-06] MEDS: lactobacillus rhamnosus 10,000 MMU CELLS/CAPSULE PO SCH (08:38)
[2019-01-06] MEDS: flecainide 50mg tablet PO SCH ×2 (08:38→20:42)
[2019-01-06] MEDS: pantoprazole 40mg Tablet.DR PO SCH (08:38)
[2019-01-06] MEDS: docusate sod 100mg capsule PO SCH ×2 (08:39→20:00)
[2019-01-06] MEDS: calcium carbonate/vitamin D3 tablet PO SCH (08:39)
[2019-01-06] MEDS: magnesium oxide 400mg tablet PO SCH (08:39)
[2019-01-06] MEDS: potassium chloride 8mEq ER tablet PO SCH ×2 (08:40→20:42)
[2019-01-06] MEDS: apixaban 5mg tablet PO SCH ×2 (08:40→20:42)
[2019-01-06 09:17] LABS: ANISOCYTOSIS 2+; PLATELET ESTIMATE NORMAL
[2019-01-06 09:19] LABS: GIANT PLATELET FEW; LARGE PLATELETS FEW
[2019-01-06 09:21] LABS: POLYCHROMASIA FEW
[2019-01-06 11:00] VITALS: BP 116/57
--- NOTE | 2019-01-06 14:31 | NUR ---
Per telegraphic typewriter installer, patient satting in low 80s. Patient up in chair watching tv, states no distress. Noted SOB. Has a breathing tx due at 1500 which patient is aware of and states she can wait til then. Paged RT to inform them of pt. current condition. Replaced Tele leads.
[2019-01-06 15:00] VITALS: BP 112/69
--- NOTE | 2019-01-06 18:30 | NUR ---
Patient in room PCU 3023. I have received report from Margarita HARDING and had the opportunity to ask questions and assume patient care.
[2019-01-06 19:00] VITALS: BP 121/61
--- NOTE | 2019-01-06 19:09 | NUR ---
Problems reprioritized. Patient report given, questions answered & plan of care reviewed with Wilber RN.
[2019-01-06] MEDS: furosemide 20 MG/2 ML vial IV SCH (20:41)
[2019-01-06 23:00] VITALS: BP 98/55
[2019-01-07 03:00] VITALS: BP 97/47
[2019-01-07 06:00] VITALS: BP 129/53
[2019-01-07 06:04] LABS: BASOPHILS # (AUTO) 0.1 X10'3 (0-0.2); BASOPHILS % (AUTO) 0.8 % (0-1); EOSINOPHILS # (AUTO) 0.1 X10'3 (0-0.9); EOSINOPHILS % (AUTO) 1.5 % (0-6); HEMOGLOBIN 11.1 g/dl (12.0-16.0); LYMPHOCYTES # (AUTO) 1.8 X10'3 (1.1-4.8); LYMPHOCYTES % (AUTO) 21.1 % (21-51); MEAN CORPUSCULAR HEMOGLOBIN 28.2 PG (27.0-31.0); MEAN CORPUSCULAR HGB CONC 32.8 g/dL (33.0-36.5); MEAN CORPUSCULAR VOLUME 85.9 FL (78-98); MEAN PLATELET VOLUME 8.2 FL (7.4-10.4); MONOCYTES # (AUTO) 0.9 X10'3 (0-0.9); MONOCYTES % (AUTO) 10.2 % (2-12); NEUTROPHILS # (AUTO) 5.6 X10'3 (1.8-7.7); NEUTROPHILS % (AUTO) 66.4 % (42-75); PLATELET COUNT 268 X10'3 (140-440); RED BLOOD COUNT 3.96 X10'6 (4.20-5.60); RED CELL DISTRIBUTION WIDTH 18.3 % (11.5-14.5); WHITE BLOOD COUNT 8.4 X10'3 (4.5-11.0)
--- NOTE | 2019-01-07 06:11 | NUR ---
Problems reprioritized. Patient report given, questions answered & plan of care reviewed with Maria Luz HARDING.
--- NOTE | 2019-01-07 06:53 | NUR ---
Patient in room PCU 3023. I have received report from Wilber RN and had the opportunity to ask questions and assume patient care.
[2019-01-07 07:03] LABS: ALBUMIN 3.2 G/DL (3.4-5.0); ANION GAP 10 (8-16); BLOOD UREA NITROGEN 24 MG/DL (7-18); BUN/CREATININE RATIO 28.2 (6.6-38.0); CALCIUM 8.2 MG/DL (8.5-10.1); CHLORIDE 103 MMOL/L (99-107); CREATININE 0.85 MG/DL (0.40-0.90); GLUCOSE 124 MG/DL (70-104); MAGNESIUM 2.1 MG/DL (1.5-2.4); POTASSIUM 3.7 MMOL/L (3.5-5.1); SODIUM 143 MMOL/L (135-145); TOTAL CARBON DIOXIDE 30.3 MMOL/L (24-32); eGFR 68 ML/MIN
[2019-01-07] MEDS: cefepime 2g/NS 100ml ADVANTAGE 100 ML IV SCH (07:23)
[2019-01-07] MEDS: furosemide 40mg/4ml inj IV SCH (07:23)
[2019-01-07] MEDS: calcium carbonate/vitamin D3 tablet PO SCH (07:24)
[2019-01-07] MEDS: apixaban 5mg tablet PO SCH (07:24)
[2019-01-07] MEDS: pantoprazole 40mg Tablet.DR PO SCH (07:24)
[2019-01-07] MEDS: docusate sod 100mg capsule PO SCH (07:24)
[2019-01-07] MEDS: lactobacillus rhamnosus 10,000 MMU CELLS/CAPSULE PO SCH (07:24)
[2019-01-07] MEDS: predniSONE 20 mg tablet PO SCH (07:25)
[2019-01-07] MEDS: metoprolol tartrate 50mg tablet PO SCH (07:25)
[2019-01-07] MEDS: flecainide 50mg tablet PO SCH (07:26)
[2019-01-07] MEDS: magnesium oxide 400mg tablet PO SCH (07:26)
[2019-01-07] MEDS: potassium chloride 8mEq ER tablet PO SCH (07:26)
[2019-01-07] MEDS: montelukast 10mg tablet PO SCH (07:27)
[2019-01-07] MEDS: acetaminophen 325mg tablet PO PRN ×2 (07:28→14:10)
[2019-01-07] MEDS: ipratropium/albuterol 3ml nebule NEB SCH ×2 (07:37→15:27)
[2019-01-07 11:00] VITALS: BP 107/50
--- NOTE | 2019-01-07 11:14 | NUR ---
Initial: Pt admitted for acute on chronic respiratory failure secondary to COPD exacerbation with an acute exacerbation of chronic diastolic heart failure as well as a possible community-acquired pneumonia. Pt is somewhat improved but not yet at baseline per MD notes. Pt on heart healthy diet with improving PO intake, documented with average 50-75% PO intake on admit, now averaging 75-100% likely meeting nutrient needs. LBM 01/06. Skin intact. No nutrition diagnosis at this time. Will continue to follow. Recommendations: 1) Continue heart healthy diet 2) Routine bowel care 3) Wt per rx Addendum: 01/07/19 at [address] Amended: Links added.
[2019-01-07 15:00] VITALS: BP 144/54
[2019-01-07] MEDS ORDERED: PRED10TA23 PO (15:15)
[2019-01-07] MEDS ORDERED: LEVO500T89 PO (15:16)
--- NOTE | 2019-01-07 16:33 | NUR ---
New prescriptions phoned to [facility] in [place] on [facility], phone number .
--- NOTE | 2019-01-07 16:47 | NUR ---
Patient stable for discharge per MD orders. All discharge instructions reviewed with patient and all questions answered. New prescriptions called into patient's preferred pharmacy. PIV and engine monitor discontinued. Belongings collected and sent with patient. Patient left in private vehicle with family member. Patient wheeled down to lobby by PCT aide.
== END 2019-01-07 16:54 | disposition home health service (06) | DRG 291 ==
LOC: ER 15:52 → ED HOLD 19:41 → PCU 3S 21:41
PROVIDERS: ADMIT Internal Medicine; ATTEND Family Medicine
DX: I11.0 Hypertensive heart disease with heart failure (principal); J18.9 Pneumonia, unspecified organism; J96.21 Acute and chronic respiratory failure with hypoxia; I50.33 Acute on chronic diastolic (congestive) heart failure; I50.813 Acute on chronic right heart failure; J43.9 Emphysema, unspecified; I27.81 Cor pulmonale (chronic); E78.00 Pure hypercholesterolemia, unspecified; F31.9 Bipolar disorder, unspecified; E66.01 Morbid (severe) obesity due to excess calories; F41.9 Anxiety disorder, unspecified; G89.29 Other chronic pain; K21.9 Gastro-esophageal reflux disease without esophagitis; M54.9 Dorsalgia, unspecified; R55 Syncope and collapse; E87.6 Hypokalemia; F10.20 Alcohol dependence, uncomplicated; I48.0 Paroxysmal atrial fibrillation; M81.0 Age-related osteoporosis without current pathological fracture; Z79.01 Long term (current) use of anticoagulants; Z85.118 Personal history of other malignant neoplasm of bronchus and lung; Z87.891 Personal history of nicotine dependence; Z99.81 Dependence on supplemental oxygen; Z68.39 Body mass index [BMI] 39.0-39.9, adult; Z28.21 Immunization not carried out because of patient refusal; Z88.0 Allergy status to penicillin; Z88.5 Allergy status to narcotic agent; Z88.2 Allergy status to sulfonamides; Z88.8 Allergy status to other drugs, medicaments and biological substances; Z83.3 Family history of diabetes mellitus; Z80.1 Family history of malignant neoplasm of trachea, bronchus and lung; Z82.5 Family history of asthma and other chronic lower respiratory diseases; Z79.899 Other long term (current) drug therapy
CPT/HCPCS: 36415; 36600; 71045; 71250; 74176; 76937; 80048; 80053; 82803; 83735; 83880; 84484; 85018; 85025; 87070; 87081; 93005; 94640; 94760; 97162; 97530; 99285; G0378; J0692; J1940; J7512; Q2037

== ENCOUNTER 2019-01-30 13:41 | Inpatient (IN) | payer MEDICARE, MEDICAID ==
[~2019-01-30] VITALS: Ht 167.6 cm; Wt 104.2 kg
[~2019-01-30 13:41] MED LIST changes: +PRED10TA23 PO; -PRED5TAB PO
[2019-01-30 14:45] LABS: BASOPHILS # (AUTO) 0.1 X10'3 (0-0.2); BASOPHILS % (AUTO) 0.6 % (0-1); EOSINOPHILS % (AUTO) 0.1 % (0-6); HEMATOCRIT 36.1 % (35.0-45.0); HEMOGLOBIN 11.8 g/dl (12.0-16.0); LYMPHOCYTES # (AUTO) 1.5 X10'3 (1.1-4.8); LYMPHOCYTES % (AUTO) 13.9 % (21-51); MEAN CORPUSCULAR HEMOGLOBIN 27.1 PG (27.0-31.0); MEAN CORPUSCULAR HGB CONC 32.7 g/dL (33.0-36.5); MEAN CORPUSCULAR VOLUME 83.1 FL (78-98); MEAN PLATELET VOLUME 8.4 FL (7.4-10.4); MONOCYTES # (AUTO) 0.7 X10'3 (0-0.9); MONOCYTES % (AUTO) 6.5 % (2-12); NEUTROPHILS # (AUTO) 8.7 X10'3 (1.8-7.7); NEUTROPHILS % (AUTO) 78.9 % (42-75); PLATELET COUNT 234 X10'3 (140-440); RED BLOOD COUNT 4.34 X10'6 (4.20-5.60); RED CELL DISTRIBUTION WIDTH 17.7 % (11.5-14.5); WHITE BLOOD COUNT 11.1 X10'3 (4.5-11.0)
[2019-01-30 15:00] LABS: ALANINE AMINOTRANSFERASE 29 U/L (12-78); ALBUMIN 3.7 G/DL (3.4-5.0); ALBUMIN/GLOBULIN RATIO 1.2 (1.1-1.5); ALKALINE PHOSPHATASE 62 IU/L (46-116); ANION GAP 9 (8-16); ASPARTATE AMINO TRANSFERASE 14 U/L (10-37); BILIRUBIN,TOTAL 0.3 MG/DL (0.1-1.0); BLOOD UREA NITROGEN 12 MG/DL (7-18); BUN/CREATININE RATIO 13.5 (6.6-38.0); CALCIUM 8.8 MG/DL (8.5-10.1); CHLORIDE 101 MMOL/L (99-107); CREATININE 0.89 MG/DL (0.40-0.90); GLUCOSE 132 MG/DL (70-104); POTASSIUM 3.7 MMOL/L (3.5-5.1); SODIUM 140 MMOL/L (135-145); TOTAL CARBON DIOXIDE 30.1 MMOL/L (24-32); TOTAL PROTEIN 6.8 G/DL (6.4-8.2); eGFR 65 ML/MIN
--- NOTE | 2019-01-30 15:37 | NUR ---
relieving RN for break, provider at bedside, pt is 58 yo female c/o heart "fluttering...hopping" lasts 4-5 minutes, had abletion 01/27 in [place], was admitted 01/26 to 01/29. +SOB, pt is sitting edge of bed
[2019-01-30] MEDS: metoprolol tartrate 1mg/ml inj IV SCH ×3 (15:54→16:23)
[2019-01-30] MEDS ORDERED: acetaminophen 325mg tablet PO PRN (16:10)
[2019-01-30] MEDS ORDERED: magnesium hydroxide 30ml (MOM) UD suspension PO PRN (16:10)
[2019-01-30] MEDS ORDERED: ondansetron/PF 4mg/2ml inj IV PRN (16:10)
[2019-01-30] MEDS ORDERED: mag hydrox/Alum hydrox/simeth 30ml oral suspension PO PRN (16:10)
--- NOTE | 2019-01-30 16:30 | NUR ---
SPOKE WITH DR BUCIO: MARILYN UNABLE TO COME TO THE PHONE. dR BUCIO SUGGESTED CALLING DR DINH IN [place] DID THE PATIENT'S ABLATION ON 01/27/19. RUPINDER RECOMMENDED USING CARDIZEM BOLUS AND DRIP FOR RATE CONTROL AND POTENTIALLY ADDITIONAL LASIX PATIENT STOPPED HER FLECANIDE AND METOPROLOL 100 BID FOR BOTH ON DAY OF ABALTION 01/27/19
--- NOTE | 2019-01-30 16:35 | NUR ---
DR DINH'S OFFICE IN [place] [id number] [phone]
[2019-01-30] MEDS ORDERED: diltiazem 5mg/ml 5ml inj. IV ONE ×2 (16:45→17:15)
--- NOTE | 2019-01-30 16:58 | NUR ---
SPOKE TO DR DINH ER SQL SERVER ARCHITECT FROM [place] WHO STATED THAT HE DID AN ABLATION ON THE AV NODE, SO SHOULD HAVE DISCONNECTED TO THE SA NODE DR DINH RECOMMENDS CARDIOVERSION
--- NOTE | 2019-01-30 17:00 | NUR ---
DISCUSSED WITH DR SANDERS WHAT DR DINH EP CARBURETOR REPAIRER FROM [place] RECOMMENDED: CARDIOVERSION DR SANDERS STATED tHAT " I DONT NEED A ANOTHER DOCTOR TELLING ME HOW TO MANAGE A HIGH HEART RATE." TRAUMA DIRECTOR KELLY INFORMED
[2019-01-30] MEDS ORDERED: diltiazem-D5W 125mg/125ml 125 ML IV SCH (17:15)
[2019-01-30] MEDS ORDERED: diltiazem-NS 100mg/100ml 100 ML IV SCH (17:17)
[2019-01-30] MEDS ORDERED: ipratropium/albuterol 3ml nebule NEB PRN (17:25)
--- NOTE | 2019-01-30 17:55 | NUR ---
BACK FROM LUNCH AND DR TORREZ HOSPITALIST IN ROOM. DISCUSSED WITH DR TORRZE THAT EP MEDICAL OFFICE TECHNICIAN [place] RECOMMENED CARDIOVERSION. DISCUSSED MEDICATION GIVEN FOR RATE CONTROL THAT IS NOT WORKING, CARDIZEM GTT AT 5 MG/HR WHICH WAS BRIEFLY TITRATED UP TO 15 MG /HR AND SBP WAS 89 SO TITRATED DOWN TO 5 MG/HR
[2019-01-30] MEDS ORDERED: amiodarone 150mg/dext, iso-os 100 ML IV ONE (18:35)
--- NOTE | 2019-01-30 18:39 | NUR ---
PER DR TORREZ: TRANSFER PATIENT UP TO PCU
--- NOTE | 2019-01-30 18:42 | NUR ---
PHONE REPORT TO RN PCU, PATIENT TO GO TO ROOM 3010A ON MONITOR WITH ALL BELONGINGS
--- NOTE | 2019-01-30 18:45 | NUR ---
SPOKE WITH DR SANDERS WHO STATES THAT HE SPOKE WITH DR BUCIO. DR SANDERS AWARE THAT CARDIZEM NOT WORKING. DR SANDERS JUST ORDERED AMIODARONE BOLUS AND GTT. DR SANDERS WOULD LIKE TO EXHAUST ALL MEDICATIONS FOR HIGH HEART RATE, PRIOR TO ANY "ELECTRICITY". DR SANDERS STATED THAT HE DID NOT WANT TO TALK TO A MD SUCH ALLEGRA WHO IS NOT AT THIS HOSPITAL.
--- NOTE | 2019-01-30 18:49 | NUR ---
SPOKE TO PYTHON JAVA DEVELOPER TAYLOR PCU REGARDING PATIENT AND HER PERSISTENT HR.
--- NOTE | 2019-01-30 18:54 | NUR ---
STUART HARDING PCU ON PHONE
[2019-01-30] MEDS: amiodarone/D5 360MG/200ML BAG 200 ML IV SCH (19:16)
--- NOTE | 2019-01-30 19:22 | NUR ---
amiodarone bolus gievne and amiodarone gtt at 1mg/min infusing to right hand 20 g piv
[2019-01-30] MEDS ORDERED: POTA10CA44 PO (19:28)
[2019-01-30] MEDS ORDERED: PRED20TA PO (19:28)
[2019-01-30] MEDS ORDERED: ALBU0.63 NEB (19:31)
[2019-01-30] MEDS ORDERED: FLUT1BLS4 INH (19:31)
[2019-01-30] MEDS: furosemide 40mg/4ml inj IV SCH (20:28)
[2019-01-30] MEDS ORDERED: HYDROcodone/acetaminophen 5mg/325mg tablet PO PRN (20:40)
[2019-01-30] MEDS ORDERED: nitroGLYCERIN 0.4mg SUBLingual tab SL PRN (20:40)
[2019-01-30 22:00] VITALS: BP 134/76
[2019-01-31] MEDS: amiodarone/D5 360MG/200ML BAG 200 ML IV SCH ×3 (01:02→09:28)
[2019-01-31 02:00] VITALS: BP 135/75
[2019-01-31] MEDS: acetaminophen 325mg tablet PO PRN ×3 (03:13→17:40)
[2019-01-31 05:25] LABS: BASOPHILS # (AUTO) 0.1 X10'3 (0-0.2); BASOPHILS % (AUTO) 0.5 % (0-1); EOSINOPHILS # (AUTO) 0.2 X10'3 (0-0.9); HEMATOCRIT 36.5 % (35.0-45.0); HEMOGLOBIN 12.1 g/dl (12.0-16.0); LYMPHOCYTES % (AUTO) 20.1 % (21-51); MEAN CORPUSCULAR HEMOGLOBIN 27.8 PG (27.0-31.0); MEAN CORPUSCULAR HGB CONC 33.2 g/dL (33.0-36.5); MEAN CORPUSCULAR VOLUME 83.8 FL (78-98); MEAN PLATELET VOLUME 8.9 FL (7.4-10.4); MONOCYTES % (AUTO) 9.7 % (2-12); NEUTROPHILS # (AUTO) 6.7 X10'3 (1.8-7.7); NEUTROPHILS % (AUTO) 67.7 % (42-75); PLATELET COUNT 241 X10'3 (140-440); RED BLOOD COUNT 4.35 X10'6 (4.20-5.60); RED CELL DISTRIBUTION WIDTH 17.7 % (11.5-14.5); WHITE BLOOD COUNT 9.9 X10'3 (4.5-11.0)
--- NOTE | 2019-01-31 05:59 | NUR ---
DART: MRSA 0-LB-Mjpc-Assessment
--- NOTE | 2019-01-31 06:12 | NUR ---
Problems reprioritized. Patient report given, questions answered & plan of care reviewed with MEHDI Marr.
[2019-01-31 06:20] LABS: ALBUMIN 3.7 G/DL (3.4-5.0); ANION GAP 8 (8-16); BLOOD UREA NITROGEN 17 MG/DL (7-18); BUN/CREATININE RATIO 17.7 (6.6-38.0); CHLORIDE 101 MMOL/L (99-107); CREATININE 0.96 MG/DL (0.40-0.90); GLUCOSE 88 MG/DL (70-104); POTASSIUM 3.1 MMOL/L (3.5-5.1); SODIUM 140 MMOL/L (135-145); TOTAL CARBON DIOXIDE 30.6 MMOL/L (24-32); eGFR 59 ML/MIN
--- NOTE | 2019-01-31 06:23 | NUR ---
Patient in room PCU 3010. I have received report from Codey HARDING and had the opportunity to ask questions and assume patient care. Will continue to monitor.
[2019-01-31 07:00] VITALS: BP 91/61
[2019-01-31] MEDS: ipratropium/albuterol 3ml nebule NEB SCH ×4 (07:02→20:15)
[2019-01-31] MEDS ORDERED: enoxaparin 40mg/0.4ml syringe SUBCUT SCH (08:00)
[2019-01-31] MEDS: K and/or MAG REPLACEMENT MC SCH ×2 (08:00→20:00)
[2019-01-31] MEDS: budesonide 0.5mg/2ml UD nebule IH SCH ×2 (08:00→20:14)
[2019-01-31] MEDS: furosemide 40mg/4ml inj IV SCH ×2 (09:01→20:52)
[2019-01-31] MEDS: lactobacillus rhamnosus 10,000 MMU CELLS/CAPSULE PO SCH (09:02)
[2019-01-31] MEDS: apixaban 5mg tablet PO SCH ×2 (09:02→20:52)
[2019-01-31] MEDS: predniSONE 20 mg tablet PO SCH (09:02)
[2019-01-31] MEDS: calcium carbonate/vitamin D3 tablet PO SCH (09:03)
[2019-01-31] MEDS: pantoprazole 40mg Tablet.DR PO SCH (09:03)
[2019-01-31] MEDS: potassium chloride 10mEq ER tablet PO SCH (09:03)
[2019-01-31] MEDS: magnesium oxide 400mg tablet PO SCH (09:03)
--- NOTE | 2019-01-31 09:45 | NUR ---
Sent page to Dr. Lehman: PAGER ID: [phone] MESSAGE: [phone] Andressa Ospina: K is 3.1, do you want it replaced? Thanks, Justa [phone]
[2019-01-31] MEDS ORDERED: potassium CL 10mEq/100ml bag 100 ML IV PRN (09:50)
[2019-01-31] MEDS ORDERED: potassium Cl 20 mEq SR tablet PO PRN (09:50)
[2019-01-31] MEDS ORDERED: magnesium 4gm in 100ml NS 100 ML IV PRN (09:50)
[2019-01-31] MEDS ORDERED: magnesium Cl slow-release 64mg tablet PO PRN (09:50)
[2019-01-31 11:00] VITALS: BP 124/58
--- NOTE | 2019-01-31 11:52 | NUR ---
Paged perinatal technician to obtain strip from ED
[2019-01-31] MEDS: potassium Cl 20 mEq SR tablet PO PRN ×3 (12:15→22:13)
--- NOTE | 2019-01-31 12:30 | NUR ---
Received orders from Dr. Dobson to let the current bag of amiodarone run dry, then DC the drip.
[2019-01-31 15:00] VITALS: BP 116/57
[2019-01-31 18:00] VITALS: BP 136/96
--- NOTE | 2019-01-31 18:36 | NUR ---
Patient in room PCU 3010. I have received report from Michele HARDING and had the opportunity to ask questions and assume patient care.
--- NOTE | 2019-01-31 18:40 | NUR ---
Problems reprioritized. Patient report given, questions answered & plan of care reviewed with Myra HARDING.
[2019-01-31] MEDS: flecainide 50mg tablet PO SCH (20:51)
[2019-01-31] MEDS: metoprolol tartrate 50mg tablet PO SCH (20:52)
[2019-01-31 22:00] VITALS: BP 131/74
[2019-02-01 02:00] VITALS: BP 129/57
[2019-02-01] MEDS: acetaminophen 325mg tablet PO PRN ×3 (02:02→17:55)
--- NOTE | 2019-02-01 06:18 | NUR ---
Problems reprioritized. Patient report given, questions answered & plan of care reviewed with Michele HARDING.
[2019-02-01 07:00] VITALS: BP 139/70
[2019-02-01] MEDS: ipratropium/albuterol 3ml nebule NEB SCH ×4 (07:22→19:25)
[2019-02-01] MEDS: budesonide 0.5mg/2ml UD nebule IH SCH (07:22)
--- NOTE | 2019-02-01 07:24 | NUR ---
PT REFUSED 0700 SVN TX. MEDICATION SCANNED AND OPENED BUT NOT DELIVERED. PT ON 2.5L SPO2 95% CLEAR AND DIMINISHED BREATH SOUNDS. NO SOB OR DISTRESS NOTED. WILL RETURN FOR 1100 TX. Addendum: 02/01/19 at 0726 by Lindsay Collier RT Amended: Links added.
[2019-02-01 07:30] LABS: ALBUMIN 3.4 G/DL (3.4-5.0); ANION GAP 10 (8-16); BLOOD UREA NITROGEN 22 MG/DL (7-18); BUN/CREATININE RATIO 24.7 (6.6-38.0); CHLORIDE 101 MMOL/L (99-107); CREATININE 0.89 MG/DL (0.40-0.90); GLUCOSE 105 MG/DL (70-104); SODIUM 137 MMOL/L (135-145); TOTAL CARBON DIOXIDE 26.5 MMOL/L (24-32); eGFR 65 ML/MIN
[2019-02-01] MEDS: K and/or MAG REPLACEMENT MC SCH ×2 (08:00→20:00)
[2019-02-01 08:11] LABS: BASOPHILS # (AUTO) 0.1 X10'3 (0-0.2); BASOPHILS % (AUTO) 0.8 % (0-1); EOSINOPHILS # (AUTO) 0.2 X10'3 (0-0.9); EOSINOPHILS % (AUTO) 1.7 % (0-6); HEMATOCRIT 35.7 % (35.0-45.0); HEMOGLOBIN 11.9 g/dl (12.0-16.0); LYMPHOCYTES % (AUTO) 21.1 % (21-51); MEAN CORPUSCULAR HEMOGLOBIN 27.9 PG (27.0-31.0); MEAN CORPUSCULAR HGB CONC 33.5 g/dL (33.0-36.5); MEAN CORPUSCULAR VOLUME 83.4 FL (78-98); MEAN PLATELET VOLUME 8.5 FL (7.4-10.4); MONOCYTES # (AUTO) 1.1 X10'3 (0-0.9); MONOCYTES % (AUTO) 11.7 % (2-12); NEUTROPHILS % (AUTO) 64.7 % (42-75); PLATELET COUNT 237 X10'3 (140-440); RED BLOOD COUNT 4.28 X10'6 (4.20-5.60); RED CELL DISTRIBUTION WIDTH 18.3 % (11.5-14.5); WHITE BLOOD COUNT 9.2 X10'3 (4.5-11.0)
[2019-02-01] MEDS: predniSONE 20 mg tablet PO SCH (08:21)
[2019-02-01] MEDS: pantoprazole 40mg Tablet.DR PO SCH (08:21)
[2019-02-01] MEDS: magnesium oxide 400mg tablet PO SCH (08:21)
[2019-02-01] MEDS: furosemide 40mg/4ml inj IV SCH ×2 (08:22→20:11)
[2019-02-01] MEDS: lactobacillus rhamnosus 10,000 MMU CELLS/CAPSULE PO SCH (08:22)
[2019-02-01] MEDS: apixaban 5mg tablet PO SCH ×2 (08:22→20:11)
[2019-02-01] MEDS: potassium chloride 10mEq ER tablet PO SCH (08:22)
[2019-02-01] MEDS: calcium carbonate/vitamin D3 tablet PO SCH (08:22)
[2019-02-01] MEDS: metoprolol tartrate 50mg tablet PO SCH ×2 (08:22→20:14)
[2019-02-01] MEDS: flecainide 50mg tablet PO SCH ×2 (08:23→20:11)
[2019-02-01 11:00] VITALS: BP 109/52
[2019-02-01 15:00] VITALS: BP 106/51
[2019-02-01 18:00] VITALS: BP 103/42
--- NOTE | 2019-02-01 18:15 | NUR ---
Problems reprioritized. Patient report given, questions answered & plan of care reviewed with Myra HARDING.
--- NOTE | 2019-02-01 18:28 | NUR ---
Patient in room PCU 3010. I have received report from Michele HARDING and had the opportunity to ask questions and assume patient care.
[2019-02-01 23:00] VITALS: BP 109/52
[2019-02-02] MEDS: acetaminophen 325mg tablet PO PRN ×2 (00:25→08:07)
[2019-02-02 03:00] VITALS: BP 102/58
[2019-02-02 06:00] VITALS: BP 135/72
[2019-02-02 06:15] LABS: BASOPHILS % (AUTO) 0.5 % (0-1); EOSINOPHILS # (AUTO) 0.2 X10'3 (0-0.9); EOSINOPHILS % (AUTO) 2.6 % (0-6); HEMATOCRIT 36.4 % (35.0-45.0); HEMOGLOBIN 12.1 g/dl (12.0-16.0); LYMPHOCYTES # (AUTO) 2.2 X10'3 (1.1-4.8); LYMPHOCYTES % (AUTO) 24.5 % (21-51); MEAN CORPUSCULAR HEMOGLOBIN 27.5 PG (27.0-31.0); MEAN CORPUSCULAR HGB CONC 33.1 g/dL (33.0-36.5); MEAN CORPUSCULAR VOLUME 82.9 FL (78-98); MEAN PLATELET VOLUME 8.6 FL (7.4-10.4); MONOCYTES # (AUTO) 0.9 X10'3 (0-0.9); MONOCYTES % (AUTO) 9.8 % (2-12); NEUTROPHILS # (AUTO) 5.6 X10'3 (1.8-7.7); NEUTROPHILS % (AUTO) 62.6 % (42-75); PLATELET COUNT 240 X10'3 (140-440); RED BLOOD COUNT 4.39 X10'6 (4.20-5.60); RED CELL DISTRIBUTION WIDTH 18.1 % (11.5-14.5)
[2019-02-02 06:20] LABS: ALBUMIN 3.3 G/DL (3.4-5.0); ANION GAP 10 (8-16); BLOOD UREA NITROGEN 22 MG/DL (7-18); BUN/CREATININE RATIO 25.9 (6.6-38.0); CALCIUM 8.8 MG/DL (8.5-10.1); CHLORIDE 101 MMOL/L (99-107); CREATININE 0.85 MG/DL (0.40-0.90); GLUCOSE 94 MG/DL (70-104); POTASSIUM 3.3 MMOL/L (3.5-5.1); SODIUM 142 MMOL/L (135-145); TOTAL CARBON DIOXIDE 31.4 MMOL/L (24-32); eGFR 68 ML/MIN
--- NOTE | 2019-02-02 06:30 | NUR ---
Patient in room PCU 3010. I have received report from MEHDI Renteria and had the opportunity to ask questions and assume patient care.
--- NOTE | 2019-02-02 06:45 | NUR ---
Problems reprioritized. Patient report given, questions answered & plan of care reviewed with Peg RN.
[2019-02-02] MEDS: potassium chloride 10mEq ER tablet PO SCH (07:55)
[2019-02-02] MEDS: flecainide 50mg tablet PO SCH (07:55)
[2019-02-02] MEDS: calcium carbonate/vitamin D3 tablet PO SCH (07:55)
[2019-02-02] MEDS: potassium Cl 20 mEq SR tablet PO PRN (07:55)
[2019-02-02] MEDS: furosemide 40mg/4ml inj IV SCH ×2 (07:55→08:00)
[2019-02-02] MEDS: lactobacillus rhamnosus 10,000 MMU CELLS/CAPSULE PO SCH (07:56)
[2019-02-02] MEDS: predniSONE 20 mg tablet PO SCH (07:56)
[2019-02-02] MEDS: magnesium oxide 400mg tablet PO SCH (07:56)
[2019-02-02 07:59] VITALS: BP_SYST 147
[2019-02-02] MEDS: apixaban 5mg tablet PO SCH (07:59)
[2019-02-02] MEDS: pantoprazole 40mg Tablet.DR PO SCH (07:59)
[2019-02-02] MEDS: metoprolol tartrate 50mg tablet PO SCH (07:59)
[2019-02-02] MEDS: K and/or MAG REPLACEMENT MC SCH (08:08)
[2019-02-02] MEDS: ipratropium/albuterol 3ml nebule NEB SCH (08:15)
[2019-02-02] MEDS: budesonide 0.5mg/2ml UD nebule IH SCH (08:15)
[2019-02-02] MEDS ORDERED: METO50TA16 PO (09:29)
[2019-02-02] MEDS ORDERED: TAM50T PO (09:29)
[2019-02-02] MEDS ORDERED: GUAI600T45 PO (09:29)
[2019-02-02] MEDS ORDERED: furosemide 40mg tablet PO ONE (09:30)
--- NOTE | 2019-02-02 09:30 | NUR ---
pt IV tender and painful. IV was going to be changed to give lasix IV, however, Dr Viveros stated to cancel it and give PO lasix as pt is being discharged.
--- NOTE | 2019-02-02 11:38 | NUR ---
pt discharged. IV d/c'd, tele removed, all belongings sent with pt. sent Rx electronically to [facility] in [facility], pt already has appt set with business support professional for f/u.
== END 2019-02-02 11:25 | disposition home health service (06) | DRG 281 ==
LOC: ER 13:42 → ED HOLD 16:10 → PCU 3S 19:25
PROVIDERS: ADMIT Internal Medicine; ATTEND Family Medicine
PROC: 4B02XSZ Measurement of Cardiac Pacemaker, External Approach (ICD-10-PCS; principal; 2019-02-02)
DX: I48.19 Other persistent atrial fibrillation (principal); I21.A1 Myocardial infarction type 2; J96.10 Chronic respiratory failure, unspecified whether with hypoxia or hypercapnia; I48.92 Unspecified atrial flutter; E66.9 Obesity, unspecified; E78.00 Pure hypercholesterolemia, unspecified; F31.9 Bipolar disorder, unspecified; F41.9 Anxiety disorder, unspecified; G47.30 Sleep apnea, unspecified; I11.0 Hypertensive heart disease with heart failure; G89.29 Other chronic pain; K21.9 Gastro-esophageal reflux disease without esophagitis; M19.90 Unspecified osteoarthritis, unspecified site; M54.9 Dorsalgia, unspecified; I95.9 Hypotension, unspecified; I27.81 Cor pulmonale (chronic); I47.1 Supraventricular tachycardia; I50.9 Heart failure, unspecified; J43.9 Emphysema, unspecified; M81.0 Age-related osteoporosis without current pathological fracture; Z79.01 Long term (current) use of anticoagulants; Z80.1 Family history of malignant neoplasm of trachea, bronchus and lung; Z85.118 Personal history of other malignant neoplasm of bronchus and lung; Z87.891 Personal history of nicotine dependence; Z92.3 Personal history of irradiation; Z95.0 Presence of cardiac pacemaker; Z99.81 Dependence on supplemental oxygen; Z88.1 Allergy status to other antibiotic agents; Z88.5 Allergy status to narcotic agent; Z88.0 Allergy status to penicillin; Z88.8 Allergy status to other drugs, medicaments and biological substances; Z83.3 Family history of diabetes mellitus; Z82.5 Family history of asthma and other chronic lower respiratory diseases; Z68.37 Body mass index [BMI] 37.0-37.9, adult; Z79.899 Other long term (current) drug therapy
CPT/HCPCS: 36415; 71045; 80048; 80053; 83880; 84484; 85025; 87081; 93005; 94640; 94760; 99291; G0378; J0282; J1650; J1940; J3490; J7512; J7626

== ENCOUNTER 2019-02-05 09:33 | Emergency (ER) | payer MEDICARE, MEDICAID ==
[~2019-02-05] VITALS: Ht 167.6 cm; Wt 114.0 kg
[~2019-02-05 09:33] MED LIST changes: +ALBU0.63 NEB; -FLEC100T PO; +FLUT1BLS4 INH; +GUAI600T45 PO; -METO100T14 PO; +METO50TA16 PO; +POTA10CA44 PO; -POTA8TAB8 PO; -PRED10TA23 PO; +PRED20TA PO; +TAM50T PO
[2019-02-05] MEDS ORDERED: flecainide 50mg tablet PO SCH (10:30)
[2019-02-05] MEDS ORDERED: LORazepam 1 MG tablet PO ONE (10:30)
[2019-02-05 10:37] LABS: BASOPHILS # (AUTO) 0.1 X10'3 (0-0.2); BASOPHILS % (AUTO) 0.4 % (0-1); EOSINOPHILS % (AUTO) 0.4 % (0-6); HEMOGLOBIN 11.9 g/dl (12.0-16.0); LYMPHOCYTES # (AUTO) 0.5 X10'3 (1.1-4.8); LYMPHOCYTES % (AUTO) 4.6 % (21-51); MEAN CORPUSCULAR HEMOGLOBIN 27.5 PG (27.0-31.0); MEAN CORPUSCULAR HGB CONC 33.1 g/dL (33.0-36.5); MEAN PLATELET VOLUME 8.2 FL (7.4-10.4); MONOCYTES # (AUTO) 0.6 X10'3 (0-0.9); NEUTROPHILS # (AUTO) 10.4 X10'3 (1.8-7.7); NEUTROPHILS % (AUTO) 89.6 % (42-75); PLATELET COUNT 272 X10'3 (140-440); RED BLOOD COUNT 4.34 X10'6 (4.20-5.60); RED CELL DISTRIBUTION WIDTH 17.4 % (11.5-14.5); WHITE BLOOD COUNT 11.6 X10'3 (4.5-11.0)
[2019-02-05 10:47] LABS: PARTIAL THROMBOPLASTIN TIME 35 SECONDS (22-32)
[2019-02-05 10:50] LABS: ALANINE AMINOTRANSFERASE 33 U/L (12-78); ALBUMIN 3.6 G/DL (3.4-5.0); ALBUMIN/GLOBULIN RATIO 1.1 (1.1-1.5); ALKALINE PHOSPHATASE 80 IU/L (46-116); ANION GAP 9 (8-16); ASPARTATE AMINO TRANSFERASE 18 U/L (10-37); BILIRUBIN,TOTAL 0.4 MG/DL (0.1-1.0); BLOOD UREA NITROGEN 13 MG/DL (7-18); BUN/CREATININE RATIO 13.3 (6.6-38.0); CALCIUM 8.9 MG/DL (8.5-10.1); CHLORIDE 98 MMOL/L (99-107); CREATININE 0.98 MG/DL (0.40-0.90); GLUCOSE 138 MG/DL (70-104); POTASSIUM 3.8 MMOL/L (3.5-5.1); SODIUM 137 MMOL/L (135-145); TOTAL CARBON DIOXIDE 29.7 MMOL/L (24-32); TOTAL PROTEIN 6.8 G/DL (6.4-8.2); eGFR 58 ML/MIN
[2019-02-05 13:43] VITALS: BP 114/66
== END 2019-02-05 14:23 | disposition home or self-care (01) ==
LOC: ER 09:34
DX: R00.2 Palpitations (principal); F41.9 Anxiety disorder, unspecified; I48.91 Unspecified atrial fibrillation; I11.0 Hypertensive heart disease with heart failure; I50.9 Heart failure, unspecified; E78.00 Pure hypercholesterolemia, unspecified; J44.9 Chronic obstructive pulmonary disease, unspecified; K21.9 Gastro-esophageal reflux disease without esophagitis; G89.29 Other chronic pain; M81.0 Age-related osteoporosis without current pathological fracture; Z85.118 Personal history of other malignant neoplasm of bronchus and lung; Z95.0 Presence of cardiac pacemaker; Z98.890 Other specified postprocedural states; Z56.0 Unemployment, unspecified; Z79.899 Other long term (current) drug therapy; Z88.0 Allergy status to penicillin; Z88.5 Allergy status to narcotic agent; Z88.2 Allergy status to sulfonamides; Z88.3 Allergy status to other anti-infective agents; Z79.01 Long term (current) use of anticoagulants
CPT/HCPCS: 36415; 71045; 80053; 84484; 85025; 85610; 85730; 87502; 87503; 93005; 99284